=== PATIENT | female | born 1995 | race Caucasian/White ===

== ENCOUNTER 2021-12-07 15:47 | Emergency (ER) | payer BC, SELFPAY ==
[2021-12-07 15:53] VITALS: BP 107/65; PULSE 94; RESP 22; TEMP 36.5; O2SAT 98
--- NOTE | 2021-12-07 16:15 | DI.CT_ITS ---
Exam(s) CT LUMBAR SPINE WO EXAM: CT LUMBAR SPINE WO CLINICAL HISTORY: lower back pain, radiation to both legs. TECHNIQUE: Imaging Protocol: Axial computed tomography images with coronal and sagittal reformatted images were created and reviewed COMPARISON: No exams were available for comparison FINDINGS: Bones: There are no fractures, listhesis, nor pars defects. There are no lytic osseous lesions evide nt.Visualized SI joints and sacrum appear unremarkable. Sacral canal unremarkable. No disc herniations evident. All disc spaces exhibit normal height. No disc herniation or central c anal stenosis. No obvious foraminal stenosis. No significant facet arthropathy throughout the lumbo sacral spinal column. The visualized sacroiliac joints and sacrum appear unremarkable. PARASPINAL SOFT TISSUES: Visualized paraspinal tissues appear unremarkable. IMPRESSION: 1. No significant findings. No fracture or listhesis. No obvious disc herniation, and no evidence o f spinal canal stenosis. 2. No acute compromise of the lumbosacral spinal canal 3. RADIATION DOSE DELIVERED: 1,330.88mGy.cm Total DLP DATA REPOSITORY: All CT scans at this facility are submitted to the National Radiology Data Registry (NRDR) Dose Index Registry (DIR) with the [employer] ([employer]). RADIATION OPTIMIZATION: All CT scans at this facility use at least one of these dose optimization te chniques: automated exposure control; mA and/or kV adjustment per patient size (includes targeted exa ms where dose is matched to clinical indication); or iterative reconstruction.
--- NOTE | 2021-12-07 16:21 | ED.GENADUL_ITS ---
Discharge Plan Disposition Patient Disposition: HOME Condition: Stable Discharge Details Clinical Impression: Lumbar strain Primary Care Provider: Uriel Huerta ED Provider: Moraima Logan Home Meds and New Rx's Prescriptions: New methocarbamol 500 mg tablet 500 mg PO Q6H PRN (Reason: muscle spasm) Qty: 14 0RF prednisone 20 mg tablet See Rx Instructions .ROUTE .COMPLEX Qty: 18 0RF Rx Instructions: Take 3 tabs daily for 3 days, then 2 tabs daily for 3 days, then 1 tab daily for 3 days. Discharge Instructions Instructions: Low Back Strain (ED) Additional Instructions: Your imaging today is reassuring and shows no evidence of acute concerning or significant findings. Your symptoms may be due to a muscle strain. Alternate ice and heat to the affected area(s) several times daily for 20 minutes at a time. Alternate tylenol and motrin as needed and directed for pain. Take the oxycodone as needed and directed for pain not relieved with Tylenol, Motrin or muscle relaxers. Prescriptions for steroids and muscle relaxers have been sent electronically to your pharmacy. You have been placed on care management list to arrange for a follow-up appointment with the primary care doctor to establish care and for reevaluation of your back pain and for referral to physical therapy or for MRI of her lumbar spine if indicated. Return immediately to the emergency department if you develop any worsening or new concerning symptoms such as worsening pain, loss of bowel or bladder function or difficulty ambulating. Stand Alone Forms: Work Release Discharge Data Discharge Date/Time-TO BE ENTERED AT DEPARTURE: 12/07/21 18:35 Discharge Physician: Moraima Logan Medical Decision Making 26-year-old female with sudden onset of lower back pain while trying to put on her pants prior to arrival. No cauda equina symptoms. Patient appears uncomfortable. She required assistance out of her vehicle. She has tenderness to her midline and bilateral lumbar paraspinal region. Her back appears normal to inspection without cellulitis, trauma or step-offs. She has positive straight leg raise on the left but otherwise no focal deficits and is neurovascularly intact. History and presentation does not appear consistent with cauda equina syndrome. As she describes a crunching sensation in her back with radicular pain and MRI not available, discussed obtaining a CT of her x-ray and patient is agreeable. Will give a dose of IM Toradol, oral oxycodone, Valium and prednisone and reassess. Imaging reviewed and unremarkable. Patient reassessed and her pain is significantly improved and she feels comfortable going home. She was able to ambulate and had improvement in pain. Prescriptions for steroids and muscle relaxers sent electronically to her pharmacy. She was given oxycodone to go as needed for breakthrough pain. Patient was placed on care management list to arrange for a follow-up appointment with the primary care doctor to establish care and for reevaluation of her back pain and for referral to physical therapy or for MRI if indicated. Usual and customary return precautions given prior to discharge. Medical Records Medical records reviewed: Yes I reviewed the patient's medical records. Imaging Data Radiologic Study: Radiologist's impression: CT Lumbar Spine Without Contrast Exam date and time: 12/07/2021 5:10 PM Age: 26 years old Clinical indication: Injury or trauma; Fall; Blunt trauma (contusions or hematomas) TECHNIQUE: Imaging protocol: Computed tomography of the lumbar spine without contrast. COMPARISON: No relevant prior studies available. FINDINGS: Bones/joints: No acute fracture. Normal alignment. Discs/Spinal canal/Neural foramina: No significant disc protrusion. No severe spinal canal stenosis. No significant neural foraminal narrowing. Gallbladder and bile ducts: Cholecystectomy. Soft tissues: Unremarkable. IMPRESSION: No acute fracture or subluxation. HPI General Mode of arrival: wheelchair . Date/Time Provider Initiated Documentation: 12/07/21 15:47 . Limitations to Documentation: no limitations . Information obtained by: patient . HPI Narrative: Pt is a 26yo F who presents to the ED w/ a c/o lower back pain since trying to put on a pair of pants prior to arrival. Patient states she felt sudden onset of pain in her lower back in the midline radiating around to both sides when bending forward to put on a pair of pants. She states she felt a crack in the middle of her back radiating to both sides. She states she has some pain radiation to her buttocks and thighs around to the front of her knees. She denies any bowel or bladder incontinence, saddle anesthesia, leg weakness or numbness. She has not taken any medication for pain. Related Data Home Medications Medication Instructions Recorded Confirmed methocarbamol 500 mg tablet 500 mg PO Q6H PRN muscle spasm #14 12/07/21 tabs prednisone 20 mg tablet See Rx Instructions .Route 12/07/21 .COMPLEX #18 tabs Previous Rx's Medication Instructions Recorded methocarbamol 500 mg tablet 500 mg PO Q6H PRN muscle spasm #14 12/07/21 tabs prednisone 20 mg tablet See Rx Instructions .Route 12/07/21 .COMPLEX #18 tabs Allergies Allergy/AdvReac Type Severity Reaction Status Date / Time tramadol AdvReac Other (See Unverified 12/07/21 16:04 Comment) General Stated Complaint: Orthopedic SONDRA: 3 Review of Systems All systems reviewed & are unremarkable except as noted in HPI and below Constitutional Constitutional: Denies chills, Denies excessive sweating, Denies fatigue, Denies fever(s), Denies weakness and Denies weight loss Eyes Eyes: Reports system reviewed and no additional complaints, except as documented and Denies blurry vision ENT Ears, Nose, Mouth, and Throat: Denies vertigo, Denies dizziness, Denies otalgia, Denies nasal congestion, Denies sore throat and Denies throat swelling Cardiovascular Cardiovascular: Denies chest pain, Denies syncope, Denies rapid heart rate and Denies dyspnea Respiratory Respiratory: Denies chest congestion, Denies cough, Denies pain on inspiration and Denies dyspnea Gastrointestinal Gastrointestinal: Denies abdominal pain, Denies diarrhea and Denies vomiting Genitourinary Genitourinary: Denies hematuria, Denies dysuria and Denies flank pain Musculoskeletal Musculoskeletal: Reports back pain and Denies joint swelling Integumentary/Breasts Skin/Breast: Denies lesions and Denies rash Neurologic Neurologic: Denies behavioral changes, Denies confusion, Denies vertigo, Denies dizziness, Denies syncope, Denies localized weakness and Denies weakness Psychiatric Psychiatric: Denies behavioral changes, Denies confusion and Denies depression Endocrine Endocrine: Denies excessive sweating and Denies fatigue Hematologic/Lymphatic Hematologic/Lymphatic: Denies easy bruising and Denies lymphadenopathy Allergic/Immunologic Allergic/Immunologic: Denies throat swelling PFSH All Active Problems (Updated 12/07/21 @ 18:15 by Moraima Logan DO) Lumbar strain (Acute) Medical History (Updated 12/07/21 @ 18:15 by Moraima Logan DO) Asthma Endometriosis Surgical History (Updated 12/07/21 @ 16:39 by Moraima Logan DO) H/O laparoscopy Hx of cholecystectomy Social History Smoking/Tobacco Use Status: Never Smoking risk assessment performed?: Yes Alcohol Intake: current Alcohol Intake frequency: a few times a month Alcohol type: wine and hard liquor Substance use type: does not use Do you feel safe at home: Yes Do you feel safe in your relationship?: Yes Exam Const General: cooperative and uncomfortable Orientation: alert, awake and oriented x3 HENMT Head: normal to inspection Ears: hearing grossly normal bilaterally, external ears normal and TM's normal bilaterally General nose exam: external nose normal Face and sinus: normal facial exam Mouth: oral mucosae normal Teeth and gingiva: dentition normal Throat: posterior oropharynx normal Eyes General: appearance normal, both eyes and all related structures Eyelids: eyelids normal Pupils: PERRL EOM: EOM intact bilaterally Neck Neck: normal visual inspection Lymphatic: no lymphadenopathy noted Chest Chest: normal inspection of the chest Resp Effort & Inspection: normal respiratory effort and able to speak in complete sentences Auscultation: clear to auscultation bilaterally Cardio Rate: regular rate Rhythm: regular rhythm GI Inspection: normal to inspection Palpation: soft, not firm, no guarding, no hepatosplenomegaly, no masses and nontender Auscultation: normal bowel sounds Back/Spine/Pelvis Thoracic/Lumbar Spine: straight leg raise positive (Left side) Back/spine/pelvis image: 1. Tenderness to palpation midline lumbar and bilateral paraspinal lumbar r egion. No erythema, edema, ecchymoses, rash, lesions or step off. Skin General skin exam: no rashes or lesions noted Neuro General: patient alert, patient awake, patient oriented x3, moves all extrem ities, no meningeal signs and no focal motor deficits Cognition: normal cognition Speech: speech normal Gait: normal gait Motor: muscle tone normal throughout and strength 5/5 throughout Sensory Exam: no sensory deficits noted Extrem General: normal to inspection, full ROM and capillary refill normal Other: Bilateral DP/PT pulses intact. Psych Appearance: grossly normal Mental Status: mental status grossly normal Speech and Movement: speech and movement normal Affect: normal affect Thought Process: normal Course Vital Signs Vital signs: Vital Signs Temperature 97.7 F 12/07/21 15:53 Pulse 94 H 12/07/21 15:53 Respiratory Rate 22 12/07/21 15:53 Blood Pressure 107/65 12/07/21 15:53 Pulse Oximetry 98 12/07/21 15:53 Temperature 97.7 F 12/07/21 15:53 Temperature Source Temporal Artery Scan 12/07/21 15:53 Pulse 94 H 12/07/21 15:53 Respiratory Rate 12/07/21 15:53 Blood Pressure 107/65 12/07/21 15:53 Blood Pressure Position Sitting 12/07/21 15:53 Pulse Oximetry 98 12/07/21 15:53 Oxygen Delivery Method Room Air 12/07/21 15:53 Oxygen Flow Rate 0 12/07/21 15:53 Pain Level 6 12/07/21 15:53 Comment 12/07/21 15:53
[2021-12-07] MEDS: diazePAM 5 MG TAB PO (16:39)
[2021-12-07] MEDS: oxyCODONE 5 MG TAB PO (16:39)
[2021-12-07] MEDS: predniSONE 20 MG TAB 60 MG PO (16:39)
[2021-12-07] MEDS: Ketorolac 60 MG/2 ML VIAL IM (16:40)
[2021-12-07 17:33] VITALS: BP 103/60; PULSE 93; RESP 14; TEMP 36.7; O2SAT 100
--- NOTE | 2021-12-07 17:57 | DI.VRAD_ITS ---
PROCEDURE INFORMATION: Exam: CT Lumbar Spine Without Contrast Exam date and time: 12/07/2021 5:10 PM Age: 26 years old Clinical indication: Injury or trauma; Fall; Blunt trauma (contusions or hematomas) TECHNIQUE: Imaging protocol: Computed tomography of the lumbar spine without contrast. COMPARISON: No relevant prior studies available. FINDINGS: Bones/joints: No acute fracture. Normal alignment. Discs/Spinal canal/Neural foramina: No significant disc protrusion. No severe spinal canal stenosis. No significant neural foraminal narrowing. Gallbladder and bile ducts: Cholecystectomy. Soft tissues: Unremarkable. IMPRESSION: No acute fracture or subluxation. Dictated and Authenticated by: Marlo Field MD. Ordering:VICTOR MANUEL Valera MD
--- NOTE | 2021-12-07 18:23 | NUR.NOTE ---
Per Dr. Logan, patient needs a PCP as they are new to the area and also needs an appt for re-evaluation of back pain within two weeks. Put the referral in the college and career counselor's box for assistance with this. Nursing Note:
[2021-12-07] MEDS: Methocarbamol 500 MG TAB 1000 MG PO (18:30)
[2021-12-07 18:38] VITALS: BP 103/60; PULSE 93; RESP 14; TEMP 36.7; O2SAT 100
== END 2021-12-07 18:35 | disposition home or self-care (01) ==
PROVIDERS: Emergency Provider Physician Assistant; PCP Internal Medicine
DX: S39.012A Strain of muscle, fascia and tendon of lower back, initial encounter (principal); Z32.02 Encounter for pregnancy test, result negative; X58.XXXA Exposure to other specified factors, initial encounter
CPT/HCPCS: 81025; 96372; 99284; 72131; J1885; J7512

== ENCOUNTER 2022-01-12 16:03 | Emergency (ER) | payer BC, SELFPAY ==
[2022-01-12 16:07] VITALS: PULSE 96; RESP 16; TEMP 36.2
--- NOTE | 2022-01-12 16:30 | DI.RAD_ITS ---
Exam(s) XR SHOULDER RT COMPLETE 2+V EXAM: XR SHOULDER RT COMPLETE 2+V CLINICAL HISTORY: R/O fx, dislocation, shoulder, Injury TECHNIQUE: COMPARISON: No exams were available for comparison FINDINGS: Five views were obtained. There is no evidence of acute fracture or dislocation. IMPRESSION: RADIATION DOSE DELIVERED: Total DLP
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
--- NOTE | 2022-01-12 17:37 | PDOC.ERCMPRO ---
- If Service Date Differs Date of service: 01/12/22 Time of Service: 17:37 Care Management Progress Note SBIRT screen: negative. Pt reports no substance use or mental health symptoms.
--- NOTE | 2022-01-12 18:34 | DI.VRAD_ITS ---
PROCEDURE INFORMATION: Exam: XR Right Shoulder Exam date and time: 01/12/2022 5:55 PM Age: 26 years old Clinical indication: Other: R/O FX, dislocation, shoulder, injury TECHNIQUE: Imaging protocol: Radiologic exam of the Right shoulder. Views: 2 or more views. COMPARISON: No relevant prior studies available. FINDINGS: Bones/joints: Osseous mineralization is normal. There are no inflammatory osseous erosive changes. The joint spaces are maintained without degenerative changes. The humeral head demonstrates normal contour and density. The subacromial space is maintained without focal calcification. There are no acute displaced fractures or subluxations. No focal osseous lesions are identified. Soft tissues: Normal. IMPRESSION: No acute fractures or subluxations identified. Dictated and Authenticated by: Edgard Kitchen MD. Ordering:ROWDY Whitehead MD
== END 2022-01-12 19:05 | disposition home or self-care (01) ==
PROVIDERS: Emergency Provider Registered Nurse Emergency; PCP Internal Medicine
DX: S43.401A Unspecified sprain of right shoulder joint, initial encounter (principal); W18.30XA Fall on same level, unspecified, initial encounter; Y92.149 Unspecified place in prison as the place of occurrence of the external cause
CPT/HCPCS: 99283; 73030; 99282

== ENCOUNTER 2022-01-14 15:20 | Emergency (ER) | payer BC, SELFPAY ==
[2022-01-14 15:24] VITALS: BP 137/59; PULSE 95; RESP 16; TEMP 36.4; O2SAT 98
--- NOTE | 2022-01-14 16:07 | W.ED.GENAD ---
Discharge Plan Disposition Patient Disposition: HOME Condition: Improving Discharge Details Clinical Impression: Shoulder pain Primary Care Provider: Uriel Huerta ED Provider: Melchor Houston Home Meds and New Rx's Prescriptions: Continued albuterol 90 mcg/actuation Aerosol 2 mcg INHALATION PRN PRN Nexplanon 68 mg Implant 1 implant SUBDERMAL ONCE Rx Instructions: as a single dose Discharge Instructions Instructions: Shoulder Pain (ED) Additional Instructions: Wear sling as needed, advance activity as tolerated. Be sure to do passive range of motion at least 4 times daily to avoid a frozen shoulder. You are already taking trqv-[id number] Tylenol but I recommend adding on Naprosyn as directed as this is an anti-inflammatory and will likely be beneficial. Cool and/or warm compresses every 2 hours for 20 minutes. Please watch for new or worsening symptoms and return to the ER for any concerns. Lastly, I have placed you on the care management list to expedite outpatient primary care and orthopedic follow-up. Medical Decision Making 26-year-old female [id number] presents after shoulder injury on Tuesday, seen on Tuesday negative x-ray at that time, but now worsening pain, stiffness, tingling. Has been taking Tylenol. I will place her on the care management list of expedite outpatient primary care and orthopedic follow-up as she was unable to do this on her own. I recommend that she add on an anti-inflammatory as opposed to simply taking Tylenol. I do not believe that repeat x-ray at this time is indicated and she may need an outpatient MRI symptoms were to persist. I will provide a sling and we did discuss the importance of passive range of motion. Standard discharge and return precautions were provided. Patient understands, is agreeable to this plan, and has no additional questions or concerns upon discharge. This documentation was generated using [employer] system, please disregard any oddities of phrase or misspellings. Medical Records Medical records reviewed: Yes I reviewed the patient's medical records. HPI General Mode of arrival: ambulatory. Date/Time Provider Initiated Documentation: 01/14/22 15:31. Limitations to Documentation: no limitations. Information obtained by: patient. HPI Narrative: This is a 26-year-old female, [id number], reports a right shoulder injury on Tuesday while doing training for her job, seen in the ER on Tuesday and had a negative x-ray at that time, presenting now for increased pain, stiffness, now with paresthesias. She denies additional injury. She has been taking gfck-jxg-mbmspoa Tylenol for her symptoms. She denies any true numbness or weakness. She denies any other injuries. She attempted to contact the orthopedic team but states their office said she needs a referral from a PCP. She states she does not have a PCP and she contacted PCP but they were not taking new patients. Related Data Home Medications Medication Instructions Recorded Confirmed albuterol 90 mcg/actuation aerosol 2 mcg inhalation PRN PRN 01/12/22 01/14/22 inhaler etonogestrel 68 mg subdermal 1 implant subdermal ONCE 01/12/22 01/14/22 implant (Nexplanon) Allergies Allergy/AdvReac Type Severity Reaction Status Date / Time tramadol AdvReac Other (See Unverified 01/14/22 15:28 Comment) General Stated Complaint: Orthopedic SONDRA: 4 Review of Systems Constitutional Constitutional: Denies fever(s), Denies headache(s) and Denies weakness ENT Ears, Nose, Mouth, and Throat: Denies headache(s) and Reports neck pain (Right-sided) Musculoskeletal Musculoskeletal: Reports arthralgias, Reports neck pain (Right-sided), Denies numbness and Reports tingling Integumentary/Breasts Skin/Breast: Denies erythema Neurologic Neurologic: Denies headache(s), Denies numbness, Reports tingling and Denies weakness PFSH All Active Problems Sprain of right shoulder (Acute) Decreased range of motion (ROM) of shoulder (Acute) Shoulder pain (Acute) Medical History Asthma Endometriosis Surgical History H/O laparoscopy Hx of cholecystectomy Social History Smoking/Tobacco Use Status: Never Smoking risk assessment performed?: Yes Alcohol Intake: current Alcohol Intake frequency: a few times a month Alcohol type: wine and hard liquor Substance use type: does not use Do you feel safe at home: Yes Do you feel safe in your relationship?: Yes Exam Const General: cooperative, healthy appearing, comfortable and no acute distress Orientation: alert and awake [facility] Head: normal to inspection, normocephalic and atraumatic Eyes General: appearance normal, both eyes and all related structures Conjunctivae: conjunctivae normal Neck Neck: normal visual inspection, full ROM, trachea midline, supple and nontender Resp Effort & Inspection: normal respiratory effort and able to speak in complete sentences Cardio Rate: regular rate Rhythm: regular rhythm Back/Spine/Pelvis Back: No back tenderness Skin General skin exam: no rashes or lesions noted Neuro General: patient alert, patient awake, moves all extremities and no focal motor deficits Cognition: normal cognition Speech: speech normal Gait: normal gait Sensory Exam: no sensory deficits noted Extrem General: capillary refill normal Other: Right shoulder held in adduction and, limited range of motion in all directions secondary to discomfort. She has diffuse right trapezius, superior and anterior deltoid discomfort. There is no erythema, ecchymosis, spasm. Skin is intact. 5 of 5 strength. Normal capillary refill and radial pulse. Psych Appearance: grossly normal Mental Status: mental status grossly normal Course Vital Signs Vital signs: Vital Signs Temperature 36.4 C L 01/14/22 15:24 Pulse 95 H 01/14/22 15:24 Respiratory Rate 16 01/14/22 15:24 Blood Pressure 137/59 L 01/14/22 15:24 Pulse Oximetry 98 01/14/22 15:24 Temperature 36.4 C L 01/14/22 15:24 Temperature Source Temporal Artery Scan 01/14/22 15:24 Pulse 95 H 01/14/22 15:24 Respiratory Rate 16 01/14/22 15:24 Respiratory Effort 01/14/22 15:27 Blood Pressure 137/59 L 01/14/22 15:24 Blood Pressure Position Sitting 01/14/22 15:24 Pulse Oximetry 98 01/14/22 15:24 Oxygen Delivery Method Room Air 01/14/22 15:24 Oxygen Flow Rate 0 01/14/22 15:24 Pain Level 5 01/14/22 15:24
--- NOTE | 2022-01-14 16:27 | NUR.NOTE ---
Nursing Note: PT info faxed to or for follow up shortly for right shoulder pain.
[2022-01-14 16:37] VITALS: BP 122/89; PULSE 95; RESP 16; TEMP 37.2; O2SAT 97
== END 2022-01-14 17:02 | disposition home or self-care (01) ==
PROVIDERS: Emergency Provider Physician Assistant; PCP Internal Medicine
DX: G89.11 Acute pain due to trauma (principal); M25.511 Pain in right shoulder; R20.2 Paresthesia of skin; X58.XXXA Exposure to other specified factors, initial encounter; Y93.89 Activity, other specified
CPT/HCPCS: 99282

== ENCOUNTER 2022-03-03 19:51 | Emergency (ER) | payer BC, SELFPAY ==
[2022-03-03 19:58] VITALS: BP 120/75; PULSE 110; RESP 18; TEMP 35; O2SAT 92
--- NOTE | 2022-03-03 20:13 | ED.GENADUL_ITS ---
Discharge Plan Disposition Patient Disposition: HOME Condition: Stable Discharge Details Clinical Impression: Acute shoulder pain Primary Care Provider: None,None ED Provider: Vero Rees Home Meds and New Rx's Prescriptions: New prednisone 20 mg tablet 40 mg PO ONCE Qty: 8 0RF cyclobenzaprine 10 mg tablet 10 mg PO TID Qty: 10 0RF Continued albuterol 90 mcg/actuation Aerosol 2 mcg INHALATION PRN PRN Nexplanon 68 mg Implant 1 implant SUBDERMAL ONCE Rx Instructions: as a single dose naproxen sodium 220 mg Tablet 220 mg PO Q12H PRN Discharge Instructions Instructions: Shoulder Pain (ED) Additional Instructions: Continue with light range of motion Follow-up with your PCP and PT Take prednisone as prescribed Take the Flexeril as needed Return earlier should you have new or worsening complaints Stand Alone Forms: Work Release Referrals: None,None [Primary Care Provider] - Discharge Data Discharge Date/Time-TO BE ENTERED AT DEPARTURE: 03/03/22 20:25 Medical Decision Making Patient appears well, think she has an acute exacerbation of her chronic pain Given muscle relaxant and Medrol Return precautions discussed and patient expressed understanding Medical Records Medical records reviewed: Yes I reviewed the patient's medical records. HPI General Date/Time Provider Initiated Documentation: 03/03/22 20:12 . HPI Narrative: This 26-year-old female with history of shoulder pain which is chronic in nature presents with acute exacerbation of her discomfort. Denies any known trauma but did have PT this morning. She had her initial injury the first week in January. She is undergoing PT regularly for this pain. She has follow-up scheduled with primary care physician and orthopedics. She states the pain is in the same location she had previously. She states moving it predominantly in front of her into the thigh it increases her pain which is sharp. She denies any neck pain, chest pain, shortness of breath, dizziness, chance of , fever, chills. Related Data Home Medications Medication Instructions Recorded Confirmed albuterol 90 mcg/actuation aerosol 2 mcg inhalation PRN PRN 01/12/22 03/03/22 inhaler etonogestrel 68 mg subdermal 1 implant subdermal ONCE 01/12/22 03/03/22 implant (Nexplanon) cyclobenzaprine 10 mg tablet 10 mg PO TID #10 tabs 03/03/22 naproxen sodium 220 mg tablet 220 mg PO Q12H PRN 03/03/22 03/03/22 prednisone 20 mg tablet 40 mg PO ONCE #8 tabs 03/03/22 Previous Rx's Medication Instructions Recorded cyclobenzaprine 10 mg tablet 10 mg PO TID #10 tabs 03/03/22 prednisone 20 mg tablet 40 mg PO ONCE #8 tabs 03/03/22 Allergies Allergy/AdvReac Type Severity Reaction Status Date / Time tramadol AdvReac Other (See Unverified 03/03/22 20:02 Comment) General Stated Complaint: Orthopedic SONDRA: 4 Review of Systems All systems reviewed & are unremarkable except as noted in HPI and below PFSH All Active Problems (Updated 03/03/22 @ 20:16 by DARNELL Maddox) Acute shoulder pain (Acute) Superior labrum kopbfyyc-bh-[id number] (SLAP) tear of right shoulder (Acute) Adhesive capsulitis of right shoulder (Acute) Medical History Asthma Endometriosis Surgical History H/O laparoscopy Hx of cholecystectomy Social History Smoking/Tobacco Use Status: Never Smoking risk assessment performed?: Yes Alcohol Intake: current Alcohol Intake frequency: a few times a month Alcohol type: wine and hard liquor Substance use type: does not use Do you feel safe at home: Yes Do you feel safe in your relationship?: Yes Exam Const General: cooperative and comfortable Orientation: alert and oriented x3 Neck Other: no midline tenderness Resp Effort & Inspection: normal respiratory effort Auscultation: clear to auscultation bilaterally Extrem Other: right shoulder tenderness, predominatly with flexion and externalrotation strength and sensation intact distally neurovascularly intact Course Vital Signs Vital signs: Vital Signs Temperature 35.0 C L 03/03/22 19:58 Pulse 110 H 03/03/22 19:58 Respiratory Rate 18 03/03/22 19:58 Blood Pressure 120/75 03/03/22 19:58 Pulse Oximetry 92 03/03/22 19:58 Temperature 35.0 C L 03/03/22 19:58 Temperature Source Skin 03/03/22 19:58 Pulse 110 H 03/03/22 19:58 Respiratory Rate 18 03/03/22 19:58 Respiratory Effort Non-Labored 03/03/22 20:04 Blood Pressure 120/75 03/03/22 19:58 Pulse Oximetry 92 03/03/22 19:58 Pain Level 8 03/03/22 20:04
[2022-03-03] MEDS: predniSONE 20 MG TAB 40 MG PO (20:24)
== END 2022-03-03 20:25 | disposition home or self-care (01) ==
PROVIDERS: Emergency Provider Physician Assistant
DX: M25.511 Pain in right shoulder; J45.909 Unspecified asthma, uncomplicated
CPT/HCPCS: 99283; 99284; J7512

== ENCOUNTER 2022-07-19 17:36 | Outpatient (REF) | payer BC, SELFPAY ==
[2022-07-21 13:48] LABS: Chlamydia Result Negative (Negative); GC Result Negative (Negative)
== END 2022-07-19 17:37 | disposition home or self-care (01) ==
LOC: LBN 17:36
PROVIDERS: PCP Nurse Practitioner Family; Visit Provider Obstetrics & Gynecology
DX: B37.31 Acute candidiasis of vulva and vagina (principal); Z11.3 Encounter for screening for infections with a predominantly sexual mode of transmission
CPT/HCPCS: 87491; 87591; 87480; 87510; 87660

== ENCOUNTER 2022-07-26 02:37 | Outpatient (CLI) | payer BC, SELFPAY ==
[2022-07-26 07:26] LABS: ESR 17 mm/hr (0-20)
[2022-07-26 07:41] LABS: Hemoglobin A1C 5.2 % (<5.7)
[2022-07-26 08:31] LABS: ALT 31 U/L (14-59); AST 23 U/L (15-37); Albumin 3.9 g/dL (3.4-5.0); Alkaline Phosphatase 139 U/L (46-116); Anion Gap 10.8 mmol/L (3-11); BUN 14 mg/dL (7-18); Bilirubin, Total 0.6 mg/dL (0.2-1.0); CO2 24.2 mmol/L (21.0-32.0); CREATININE 0.8 mg/dL (0.55-1.02); Calcium 9.8 mg/dL (8.5-10.1); Calculated LDL 79 mg/dL (<100); Chloride 107 mmol/L (98-107); Cholesterol 136 mg/dL (<200); Estimated GFR 104.15 (mL/min/1.73m2); Glucose 88 mg/dL (74-106); HDL Cholesterol 39 mg/dL (40-60); Potassium 3.9 mmol/L (3.5-5.1); Sodium 142 mmol/L (136-145); TSH (W/Ref FT4) 1.42 uIU/mL (0.36-3.74); Total Protein 7.7 g/dL (6.4-8.2); Triglyceride 90 mg/dL (<150)
[2022-07-26 08:39] LABS: C-Reactive Protein 0.84 mg/dL (0.0-0.3)
[2022-07-27 10:30] LABS: Lyme Ab w Rflx to Lyme Confirm Negative (Negative)
[2022-07-27 12:36] LABS: dsDNA Ab, IgG <12.3 IU/mL (<30.0)
[2022-07-28 12:34] LABS: ANA Interpretation Negative (Negative)
[2022-07-29 14:25] LABS: Anaplasma phagocytophilum Negative (Negative); B. miyamotoi PCR Negative (Negative); Babesia divergens/MO-1 Negative (Negative); Babesia duncani Negative (Negative); Babesia microti Negative (Negative); Ehrlichia chaffeensis Negative (Negative); Ehrlichia ewingii/canis Negative (Negative); Ehrlichia muris eauclairensis Negative (Negative)
== END 2022-07-26 02:38 | disposition home or self-care (01) ==
LOC: LBO 02:37
PROVIDERS: PCP Nurse Practitioner Family; Visit Provider Nurse Practitioner Family
DX: Z00.00 Encounter for general adult medical examination without abnormal findings (principal); M25.50 Pain in unspecified joint; M25.561 Pain in right knee; M25.562 Pain in left knee; M25.551 Pain in right hip; M25.552 Pain in left hip; G89.29 Other chronic pain; Z13.220 Encounter for screening for lipoid disorders; Z13.1 Encounter for screening for diabetes mellitus; Z13.29 Encounter for screening for other suspected endocrine disorder; Z11.8 Encounter for screening for other infectious and parasitic diseases; E66.8 Other obesity
CPT/HCPCS: 36415; 80053; 80061; 85652; 87798; 83036; 84443; 86038; 86140; 86225; 86618

== ENCOUNTER 2022-10-27 10:56 | Outpatient (REF) | payer BC, SELFPAY | END 2022-10-27 10:57 | disposition home or self-care (01) | LOC: LBN 10:56 | PROVIDERS: PCP Nurse Practitioner Family; Visit Provider Nurse Practitioner Women's Health | DX: N89.8 Other specified noninflammatory disorders of vagina (principal) | CPT/HCPCS: 87480; 87510; 87660 ==

== ENCOUNTER 2022-11-30 04:19 | Emergency (ER) | payer BC, SELFPAY ==
[2022-11-30 04:24] VITALS: BP 124/81; PULSE 77; RESP 18; TEMP 36.8; O2SAT 97
--- NOTE | 2022-11-30 04:30 | DI.RAD_ITS ---
Exam(s) XR PORTABLE CHEST AP EXAM: XR PORTABLE CHEST AP CLINICAL HISTORY: upright TECHNIQUE: 2D digital imaging was performed. COMPARISON: No exams were available for comparison FINDINGS: LUNGS: Clear. No pleural abnormality seen. HEART: Normal size. AORTA: Normal diameter. BONES: Unremarkable for age. Soft tissues: Unremarkable. IMPRESSION: No acute findings. DATA REPOSITORY: RADIATION DOSE DELIVERED:
--- NOTE | 2022-11-30 04:30 | RT.EKG_ITS ---
APPROVED REPORT Exam: Resting ECG Reason for Exam: dizzy Patient Location: E HR:65 bpm ECG Measurements Heart Rate 65 AXIS MN 143 P 31 QRSd 76 QRS 12 QT 410 T 13 QTc 427 Conclusion Sinus rhythm...normal P axis, V-rate 60- 99 Low voltage, precordial leads...precordial leads <1.0mV
--- NOTE | 2022-11-30 04:44 | W.ED.GENAD ---
Discharge Plan Disposition Patient Disposition: Home Discharge Details Clinical Impression: Nausea & vomiting, Citlali-Roberto tear, GERD (gastroesophageal reflux disease) Primary Care Provider: Jing Bishop ED Provider: Janusz Centeno Home Meds and New Rx's Prescriptions: New omeprazole 40 mg capsule,delayed release(DR/EC) 40 mg PO BID Qty: 60 2RF ondansetron 4 mg tablet,disintegrating 4 mg PO Q8H PRN PRN (Reason: nausea and vomiting) Qty: 20 0RF Continued medroxyprogesterone [Depo-Provera] 150 mg/mL suspension 150 mg IM Q12W Qty: 1 3RF albuterol sulfate 90 mcg/actuation HFA aerosol inhaler 2 inh inhalation Q6H PRN (Reason: shortness of breath or wheezing) Qty: 18 4RF Held naproxen sodium 220 mg Tablet 220 mg PO Q12H PRN Hold Instructions: Resume on 12/30/22. hold until nausea symptoms have fully resolved Discontinued fluconazole [Diflucan] 150 mg tablet 150 mg PO ONCE Qty: 1 1RF Rx Instructions: as a single dose. If symptoms still present in 5 days, refill and repeat dose. Discharge Instructions Instructions: GERD (Gastroesophageal Reflux Disease) (ED), Citlali-Roberto Syndrome (ED) Additional Instructions: You were seen in the emergency department for nausea and vomiting. We performed labs, an EKG, and a chest x-ray and these were all unremarkable. Your symptoms are likely related to GERD. You should start taking omeprazole 40 mg twice a day until you can follow-up with your primary care doctor. Follow-up with your primary care doctor as soon as possible to see if you need a referral to gastroenterology or a surgeon for a possible endoscopy. Return straight back to the emergency department for abdominal pain, intractable nausea or vomiting, recurrent bloody vomiting or any other symptoms that are worrisome to you. Stand Alone Forms: Work Release Medical Decision Making This is a 27-year-old female who presents with nausea and vomiting and dizziness. Suspect this is most related to severe GERD or gastritis. Reporting significant acid symptoms to suggest this and we will give some famotidine to treat this. We will also give some nausea medication and some IV fluids. Suspect the lightheadedness and dizziness is secondary to the patient's repeated vomiting and likely some mild hypovolemia. Suspect this will improve with some IV fluids. Doubt other cause of the dizziness but will check an EKG to look for dysrhythmia. Will get chest x-ray to evaluate for pneumonia or pneumothorax. She has some epigastric abdominal pain. Suspect this is related to the GERD or gastritis. No tenderness on exam so no role for CT of the abdomen and pelvis at this time. She is already status postcholecystectomy. We will get biliary labs to look for signs of hepatitis, pancreatitis, or other biliary disease. We will check a CBC to look for significant bleeding. I suspect that the patient's 1 episode of bloody vomit was secondary to a Citlali-Roberto tear from the repeated vomiting today and we will see if the patient's symptoms improve with the famotidine and nausea medications and follow-up her CBC additionally. No other signs to suggest a large volume upper gastrointestinal bleed. We will treat as above and await initial testing and reevaluate. 0617 Labs, EKG, and chest x-ray are unremarkable. Markedly improved after IV treatment of nausea and suspected GERD here. Tolerating p.o. Feels better and would like to leave. I think that this is reasonable. Will send prescription for omeprazole and a short course of Zofran to help with her nausea as well. Will discharge with return precautions. Medical Records Medical records reviewed: Yes I reviewed the patient's medical records. Imaging Data Radiologic Study: Attestation: I personally reviewed and interpreted this imaging study as follows: Imaging: X-Ray (chest) My impression: unremarkable Lab Data Lab results reviewed: Yes I reviewed the patient's lab results. ECG Data Attestation: I personally reviewed and interpreted this ECG (s) as follows: Prior ECG tracings: available for review Interpretation: Normal sinus rhythm with a rate of 65. Normal IL and QT intervals. No ST or T wave changes. Otherwise unremarkable EKG. HPI General Date/Time Provider Initiated Documentation: 11/30/22 04:32. Limitations to Documentation: no limitations. Information obtained by: patient. HPI Narrative: 27-year-old female with history of asthma and endometriosis is now presenting with nausea and vomiting. Says she actually started this evening at work with some lightheadedness and dizziness and feeling a little bit off. She said she started with severe nausea and vomiting over the last few hours. Vomited multiple times. Had 1 episode of bloody vomit. Subsequently had 1 episode of vomiting that did not have any blood. Has some epigastric abdominal pain but no other abdominal pain. No constipation or diarrhea. No black or bloody stools. She says she has been dealing with recurrent nausea and vomiting over the last year. Did not have a clear reason for this and says she has been planning to follow-up with her primary care doctor. She has had her gallbladder out and she has had a diagnostic laparoscopy for the endometriosis but no other surgeries. She denies any chance she would be. Them. No vaginal bleeding or discharge. Denies any other complaints. Related Data Home Medications Medication Instructions Recorded Confirmed naproxen sodium 220 mg tablet 220 mg PO Q12H PRN 03/03/22 10/27/22 albuterol sulfate 90 mcg/actuation 2 inh inhalation Q6H PRN shortness 06/24/22 11/30/22 aerosol inhaler of breath or wheezing #18 grams medroxyprogesterone 150 mg/mL 150 mg IM Q12W #1 mL 07/19/22 11/30/22 intramuscular suspension (Depo-Provera) omeprazole 40 mg capsule,delayed 40 mg PO BID #60 caps 11/30/22 release ondansetron 4 mg disintegrating 4 mg PO Q8H PRN PRN nausea and 11/30/22 tablet vomiting #20 tabs Previous Rx's Medication Instructions Recorded albuterol sulfate 90 mcg/actuation 2 inh inhalation Q6H PRN shortness 06/24/22 aerosol inhaler of breath or wheezing #18 grams medroxyprogesterone 150 mg/mL 150 mg IM Q12W #1 mL 07/19/22 intramuscular suspension (Depo-Provera) omeprazole 40 mg capsule,delayed 40 mg PO BID #60 caps 11/30/22 release ondansetron 4 mg disintegrating 4 mg PO Q8H PRN PRN nausea and 11/30/22 tablet vomiting #20 tabs Allergies Allergy/AdvReac Type Severity Reaction Status Date / Time tramadol AdvReac Hallucinati Unverified 10/27/22 09:56 ons General Stated Complaint: Nausea/Vomit/Diar SONDRA: 3 Review of Systems Constitutional Constitutional: Denies chills, Denies fever(s) and Denies headache(s) Comments: lightheaded and dizzy Eyes Eyes: Denies change in vision ENT Ears, Nose, Mouth, and Throat: Denies headache(s) and Denies odynophagia Cardiovascular Cardiovascular: Denies chest pain and Denies dyspnea Respiratory Respiratory: Denies dyspnea Gastrointestinal Gastrointestinal: Denies abdominal pain, Denies diarrhea, Reports nausea, Denies odynophagia, Reports vomiting, Reports hematemesis and Reports other (epigastric abdominal pain) Genitourinary Genitourinary: Denies dysuria Musculoskeletal Musculoskeletal: Denies myalgias Integumentary/Breasts Skin/Breast: Denies changing lesions Neurologic Neurologic: Denies behavioral changes and Denies headache(s) Psychiatric Psychiatric: Denies behavioral changes Endocrine Endocrine: Denies heat intolerance Hematologic/Lymphatic Hematologic/Lymphatic: Denies lymphadenopathy PFSH All Active Problems (Updated 11/30/22 @ 05:25 by Janusz Centeno MD) Nausea & vomiting (Acute) Citlali-Roberto tear (Acute) GERD (gastroesophageal reflux disease) (Chronic) Nexplanon removal (Acute) Yeast vaginitis (Acute) Abnormal uterine bleeding (Acute) Contraceptive management (Acute) Well woman exam with routine gynecological exam (Acute) Endometriosis (Chronic) Sprain of right shoulder (Chronic) Chronic joint pain (Chronic) Asthma (Chronic) Obesity (Chronic) Medical History Adhesive capsulitis of right shoulder Depression Migraine Surgical History H/O laparoscopy Hx of cholecystectomy Family History Mother Substance use disorder Father No problems noted. Brother No problems noted. Brother No problems noted. Maternal Grandfather Heart disease Maternal Grandmother Heart disease Paternal Grandfather No problems noted. Paternal Grandmother No problems noted. Social History Smoking/Tobacco Use Status: Never Second Hand Exposure: Yes Smoking risk assessment performed?: Yes Alcohol Intake: current Alcohol Intake frequency: a few times a month Alcohol type: wine and hard liquor Substance use type: does not use Caregiver/Support person: No Household members: none Housing: house Communication Needs: None Do you need help understanding health information?: Never Pets and animals: Yes Pets and animals: dog(s) Sexually active: No Do you think of yourself as: straight/heterosexual Current gender identity: female What is your relationship status?: never How often do you talk on the phone with friends or family?: twice per week How often do you get together with friends or relatives?: once per week How often do you attend buddhist or restorationism services?: decline to answer Do you belong to any clubs or organized social groups?: no Panel score (0-1 are the most socially isolated patients): 1 What type of physical activity do you participate in: yoga Duration: 15-30 minutes/day Frequency: 3-4 times per week Mamie/Oriental Orthodox: No preference Seatbelt use: sometimes Helmet use: No Drive intox or ride w/intox petroleum transport driver: No Do you feel safe at home: Yes Do you feel safe in your relationship?: Yes Female Reproductive History Menstrual Age of Menarche: 12 Duration of menses: other control method: progesterone injection History History 0 Para Hx # Term Pregnancies Multiple births Hx # Pregnancies Ectopic pregnancies AB induced Hx Number of Living Children AB spontaneous Exam Const General: cooperative Nutritional Appearance: average body habitus Orientation: alert, awake and oriented x3 HENMT Head: normal to inspection Ears: external ears normal Mouth: moist mucous membranes Eyes Pupils: PERRL EOM: EOM intact bilaterally and No nystagmus Neck Neck: full ROM and no tracheal deviation Chest Chest: normal inspection of the chest Resp Auscultation: clear to auscultation bilaterally Cardio Rate: regular rate Rhythm: regular rhythm GI Inspection: normal to inspection Palpation: soft, no guarding, not rigid and nontender Other: Reporting some epigastric and upper abdominal pain but not tender on exam and no guarding, rigidity or rebound. Back/Spine/Pelvis Back: No no CVA tenderness Thoracic/Lumbar Spine: thoracic and lumbar spine normal to inspection Skin General skin exam: no rashes or lesions noted Neuro General: patient alert, patient awake and patient oriented x3 Cranial Nerves: CN's II-XI intact bilaterally, PERRL and no nystagmus Cognition: normal cognition Motor: muscle tone normal throughout and strength 5/5 throughout Sensory Exam: no sensory deficits noted Extrem General: normal to inspection Course Vital Signs Vital signs: Vital Signs Temperature 36.8 C 11/30/22 04:24 Pulse 77 11/30/22 04:24 Respiratory Rate 18 11/30/22 04:24 Blood Pressure 124/81 11/30/22 04:24 Pulse Oximetry 97 11/30/22 04:24 Temperature 36.8 C 11/30/22 04:24 Temperature Source Oral 11/30/22 04:24 Pulse 77 11/30/22 04:24 Respiratory Rate 18 11/30/22 04:24 Blood Pressure 124/81 11/30/22 04:24 Pulse Oximetry 97 11/30/22 04:24 Oxygen Delivery Method Room Air 11/30/22 04:24 Oxygen Flow Rate 0 11/30/22 04:24
[2022-11-30] MEDS: Ondansetron 4 MG/2 ML VIAL IVP ×2 (04:50→05:24)
[2022-11-30] MEDS: Famotidine 20 MG/2 ML VIAL IVP (04:50)
[2022-11-30] MEDS: Normal Saline 1,000 ML 1000 ML IV (04:50)
[2022-11-30 05:08] LABS: ALT 32 U/L (14-59); AST 17 U/L (15-37); Alkaline Phosphatase 175 U/L (46-116); Anion Gap 11.2 mmol/L (3-11); BUN 15 mg/dL (7-18); Bilirubin, Total 0.3 mg/dL (0.2-1.0); CO2 25.8 mmol/L (21.0-32.0); Calcium 9.4 mg/dL (8.5-10.1); Chloride 105 mmol/L (98-107); Estimated GFR 79.19 (mL/min/1.73m2); Glucose 101 mg/dL (74-106); Lipase 29 U/L (16-77); Magnesium 1.8 mg/dL (1.8-2.4); Potassium 3.5 mmol/L (3.5-5.1); Sodium 142 mmol/L (136-145); Total Protein 7.9 g/dL (6.4-8.2)
[2022-11-30 05:10] LABS: Abs Immature Grans 0.06 10^3/uL (0.0-0.06); Absolute Basophil Count 0.07 10^3/uL (0.0-0.2); Absolute Eosinophil Count 0.21 10^3/uL (0.0-0.7); Absolute Lymphocyte Count 3.17 10^3/uL (1.2-3.4); Absolute Monocyte Count 0.79 10^3/uL (0.1-0.8); Basophils % 0.6; Eosinophils % 1.8; HCT 41.2 % (36.0-46.0); Immature Grans % 0.5; Lymphocytes % 27.2; MCH 28.5 pg (27.0-33.0); MCV 84 fL (80-95); MPV 10.2 fL (8.0-11.0); Monocytes % 6.8; Neutrophils % 63.1; Platelet Count 332 10^3/uL (130-400); RBC 4.91 10^6/uL (3.93-5.22); RDW 12.2 % (11.7-14.6); RDW-SD 37.2 fL; WBC 11.67 10^3/uL (4.4-10.8)
[2022-11-30 05:12] LABS: Absolute Neutrophil Count 7.36 10^3/uL (1.2-6.7)
[2022-11-30 05:14] LABS: HCG Qual (Serum) Negative
[2022-11-30] MEDS: Mylanta Suspension 30 ML CUP (05:26)
[2022-11-30] MEDS: Metoclopramide 10 MG/2 ML VIAL IVP (06:05)
--- NOTE | 2022-11-30 08:49 | DI.VRAD_ITS ---
PROCEDURE INFORMATION: Exam: XR Chest Exam date and time: 11/30/2022 5:00 AM Age: 27 years old Clinical indication: Cough.No history of trauma or recent surgery is provided. TECHNIQUE: Imaging protocol: Radiologic exam of the chest. 1image(s) are provided. Views: 1 view. COMPARISON: No prior relevant comparison study is currently available. FINDINGS: Lungs: No lobar consolidation is appreciated. Pleural spaces: No pneumothorax or pleural effusion is appreciated. Heart/Mediastinum: The cardiomediastinal silhouette is normal. No cardiac decompensation is appreciated. Diaphragm: There is slight asymmetric right hemidiaphragm elevation. Bones/joints: Osseous alignment is maintained.No displaced fracture or dislocation is appreciated. Soft tissues: No radiopaque foreign body or subcutaneous emphysema is appreciated. IMPRESSION: No lobar consolidation is appreciated.No acute cardiopulmonary changes are appreciated. Dictated and Authenticated by: Catracho Vinson MD. Ordering:PEDRO LUIS Boudreaux MD
== END 2022-11-30 06:27 | disposition home or self-care (01) ==
PROVIDERS: Emergency Provider Student in an Organized Health Care Education/Training Program; PCP Nurse Practitioner Family
DX: R11.2 Nausea with vomiting, unspecified (principal); K21.9 Gastro-esophageal reflux disease without esophagitis; K22.6 Gastro-esophageal laceration-hemorrhage syndrome
CPT/HCPCS: 36415; 80053; 83690; 93005; 96361; 96374; 96375; 96376; 99284; 71045; 83735; 84703; 85025; 93010; J2405; J2765

== ENCOUNTER 2022-12-03 02:33 | Emergency (ER) | payer BC, SELFPAY ==
[2022-12-03 02:30] VITALS: BP 120/50; PULSE 89; RESP 16; TEMP 36.6; O2SAT 98
--- NOTE | 2022-12-03 02:45 | DI.CT_ITS ---
Exam(s) CT RENAL COLIC WO EXAM: CT RENAL COLIC WO CLINICAL HISTORY: Right LQ and flank pain. TECHNIQUE: Imaging Protocol: Axial computed tomography images with coronal and sagittal reformatted images were created and reviewed. CONTRAST MATERIAL: Noncontrast COMPARISON: No exams were available for comparison FINDINGS: ABDOMEN: Lung Bases: Normal where visualized. Liver: Enlarged. Hepatic steatosis. No measurable mass. Gallbladder and biliary tract: Status post cholecystectomy. No radiodense calculus or dilation. Pancreas: Normal density, no calcifications or inflammatory process. Spleen: Normal. Kidneys: Normal size, contour and axis. 2 x 3 millimeter stone below the ureteropelvic all junction c ausing mild right hydronephrosis. Additional tiny nonobstructing stone lower pole left kidney. No m asses seen. Adrenal glands: No masses seen. Abdominal Aorta: Abdominal portion non-dilated. Soft tissues: Unremarkable. PELVIS: Bladder: Symmetric distention, no gross wall thickening. No evidence of stones.No visible mass. Bowel: No obstruction or bowel wall thickening. Surgical clips at base of cecum likely secondary to a ppendectomy. Reproductive: Unremarkable. Peritoneal cavity: No ascites, collection or mesenteric inflammatory response. Bones: Unremarkable for age.. IMPRESSION: Mild right hydronephrosis secondary to a 2 x 3 millimeter stone just below the ureteropelvic junction . RADIATION DOSE DELIVERED: 957.3mGy.cm Total DLP DATA REPOSITORY: All CT scans at this facility are submitted to the National Radiology Data Registry (NRDR) Dose Index Registry (DIR) with the [employer] (A[employer]). RADIATION OPTIMIZATION: All CT scans at this facility use at least one of these dose optimization te chniques: automated exposure control; mA and/or kV adjustment per patient size (includes targeted exa ms where dose is matched to clinical indication); or iterative reconstruction.
--- NOTE | 2022-12-03 02:49 | W.ED.GENAD ---
Discharge Plan Disposition Patient Disposition: Home Discharge Details Clinical Impression: Renal colic on right side, Kidney stone Primary Care Provider: Jing Bishop ED Provider: Car Balderrama Meds and New Rx's Prescriptions: New naproxen 375 mg tablet 375 mg PO BID PRN (Reason: pain) Qty: 30 0RF Continued medroxyprogesterone [Depo-Provera] 150 mg/mL suspension 150 mg IM Q12W Qty: 1 3RF albuterol sulfate 90 mcg/actuation HFA aerosol inhaler 2 inh inhalation Q6H PRN (Reason: shortness of breath or wheezing) Qty: 18 4RF naproxen sodium 220 mg Tablet 220 mg PO Q12H PRN Hold Instructions: Resume on 12/30/22. hold until nausea symptoms have fully resolved omeprazole 40 mg capsule,delayed release(DR/EC) 40 mg PO BID Qty: 60 2RF ondansetron 4 mg tablet,disintegrating 4 mg PO Q8H PRN PRN (Reason: nausea and vomiting) Qty: 20 0RF Discharge Instructions Instructions: Kidney Stones (ED) Discharge Data Discharge Physician: Car Balderrama Medical Decision Making Patient presents emergency department with right flank pain radiating to right lower quadrant. Urinalysis reveals microscopic hematuria as interpreted me the rest of the labs are unremarkable. CT scan renal protocol was obtained which was the kidneys to the mid ureter hydronephrosis. Patient was treated with Toradol with complete relief she is pain-free and will be discharged home Medical Records Medical records reviewed: Yes I reviewed the patient's medical records. Imaging Data Radiologic Study: Attestation: I personally reviewed and interpreted this imaging study as follows: Imaging: CT Scan My impression: Right-sided kidney is still in the ureterpelvic junction Radiologist's impression: Right-sided kidney is still in the ureterpelvic junction Lab Data Lab results reviewed: Yes I reviewed the patient's lab results. HPI General Date/Time Provider Initiated Documentation: 12/03/22 02:49. HPI Narrative: Patient presents to the emergency department stating that 3 years ago. Returns still with severe right pain radiates to quadrant associated with nausea. Reports still has severe and she is now 9/10 to pain that exacerbates. Related Data Home Medications Medication Instructions Recorded Confirmed naproxen sodium 220 mg tablet 220 mg PO Q12H PRN 03/03/22 12/03/22 albuterol sulfate 90 mcg/actuation 2 inh inhalation Q6H PRN shortness 06/24/22 12/03/22 aerosol inhaler of breath or wheezing #18 grams medroxyprogesterone 150 mg/mL 150 mg IM Q12W #1 mL 07/19/22 12/03/22 intramuscular suspension (Depo-Provera) omeprazole 40 mg capsule,delayed 40 mg PO BID #60 caps 11/30/22 12/03/22 release ondansetron 4 mg disintegrating 4 mg PO Q8H PRN PRN nausea and 11/30/22 12/03/22 tablet vomiting #20 tabs naproxen 375 mg tablet 375 mg PO BID PRN pain #30 tabs 12/03/22 Previous Rx's Medication Instructions Recorded albuterol sulfate 90 mcg/actuation 2 inh inhalation Q6H PRN shortness 06/24/22 aerosol inhaler of breath or wheezing #18 grams medroxyprogesterone 150 mg/mL 150 mg IM Q12W #1 mL 07/19/22 intramuscular suspension (Depo-Provera) omeprazole 40 mg capsule,delayed 40 mg PO BID #60 caps 11/30/22 release ondansetron 4 mg disintegrating 4 mg PO Q8H PRN PRN nausea and 11/30/22 tablet vomiting #20 tabs naproxen 375 mg tablet 375 mg PO BID PRN pain #30 tabs 12/03/22 Allergies Allergy/AdvReac Type Severity Reaction Status Date / Time tramadol AdvReac Hallucinati Unverified 12/03/22 02:41 ons General Stated Complaint: Abd Prob SONDRA: 3 Review of Systems All systems reviewed & are unremarkable except as noted in HPI and below Constitutional Constitutional: Reports as per HPI and Reports system reviewed and no additional complaints, except as documented Eyes Eyes: Reports as per HPI and Reports system reviewed and no additional complaints, except as documented ENT Ears, Nose, Mouth, and Throat: Reports system reviewed and no additional complaints, except as documented Cardiovascular Cardiovascular: Reports as per HPI and Reports system reviewed and no additional complaints, except as documented Respiratory Respiratory: Reports as per HPI and Reports system reviewed and no additional complaints, except as documented Gastrointestinal Gastrointestinal: Reports as per HPI and Reports system reviewed and no additional complaints, except as documented Genitourinary Genitourinary: Reports system reviewed and no additional complaints, except as documented Musculoskeletal Musculoskeletal: Reports system reviewed and no additional complaints, except as documented Integumentary/Breasts Skin/Breast: Reports system reviewed and no additional complaints, except as documented Neurologic Neurologic: Reports system reviewed and no additional complaints, except as documented Psychiatric Psychiatric: Reports system reviewed and no additional complaints, except as documented Endocrine Endocrine: Reports system reviewed and no additional complaints, except as documented PFSH All Active Problems (Updated 12/03/22 @ 04:23 by Car Balderrama MD) Nausea & vomiting (Acute) Citlali-Roberto tear (Acute) GERD (gastroesophageal reflux disease) (Chronic) Renal colic on right side (Acute) Kidney stone (Chronic) Nexplanon removal (Acute) Yeast vaginitis (Acute) Abnormal uterine bleeding (Acute) Contraceptive management (Acute) Well woman exam with routine gynecological exam (Acute) Endometriosis (Chronic) Sprain of right shoulder (Chronic) Chronic joint pain (Chronic) Asthma (Chronic) Obesity (Chronic) Medical History Adhesive capsulitis of right shoulder Depression Migraine Surgical History H/O laparoscopy Hx of cholecystectomy Family History Mother Substance use disorder Father No problems noted. Brother No problems noted. Brother No problems noted. Maternal Grandfather Heart disease Maternal Grandmother Heart disease Paternal Grandfather No problems noted. Paternal Grandmother No problems noted. Social History Smoking/Tobacco Use Status: Never Second Hand Exposure: Yes Smoking risk assessment performed?: Yes Alcohol Intake: current Alcohol Intake frequency: 3 or more drinks per day Alcohol type: wine and hard liquor Substance use type: does not use Caregiver/Support person: No Household members: none Housing: house Communication Needs: None Do you need help understanding health information?: Never Pets and animals: Yes Pets and animals: dog(s) Sexually active: No Do you think of yourself as: straight/heterosexual Current gender identity: female What is your relationship status?: never How often do you talk on the phone with friends or family?: twice per week How often do you get together with friends or relatives?: once per week How often do you attend baptist or adventism services?: decline to answer Do you belong to any clubs or organized social groups?: no Panel score (0-1 are the most socially isolated patients): 1 What type of physical activity do you participate in: yoga Duration: 15-30 minutes/day Frequency: 3-4 times per week Mamie/Latter Day: No preference Seatbelt use: sometimes Helmet use: No Drive intox or ride w/intox 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 driver operator: No Do you feel safe at home: Yes Do you feel safe in your relationship?: Yes Female Reproductive History Menstrual Age of Menarche: 12 Duration of menses: other control method: progesterone injection History History 0 Para Hx # Term Pregnancies Multiple births Hx # Pregnancies Ectopic pregnancies AB induced Hx Number of Living Children AB spontaneous Exam Narrative Exam Narrative: Exam; vitals signs as reported above Constitutional; in acute distress due to pain, afebrile General: cooperative, healthy appearing, comfortable and no acute distress HEENT: Head: normal to inspection, no palpable skull fracture and normocephalic Eyes: l: appearance normal, both eyes and all related structures ]Pupils: PERRL EOM: EOM intact bilaterally Direct ophthalmoscopy: normal light reflex, normal conjunctiva, normal visual acuity Neck no JVD, supple Neck: normal visual inspection, full ROM and no lymphadenopathy Chest Chest: normal inspection of the chest Respiratory : normal respiratory effort and able to speak in complete sentences Cardio Rate: regular rate Rhythm: regular rhythm normal heart sounds S1 and S2 no murmurs, gallops, or rubs GI Inspection: normal to inspection, normal bowel sounds, soft, non tender, non distended, no organomegally Back/Spine/ no CVA tenderness Thoracic/Lumbar Spine: no tenderness or deformities Skin no rashes or lesions Neuro: patient alert and no meningeal signs, Cranial Nerves: CN's II-XI intact bilaterally, Cognition: normal cognition, Speech: speech normal, Gait: normal gait, Depp tendon reflexes normal 2+ Extremities, no edema, full range of motion, normal strength Course Patient most likely with a regional pain received pain medication. Initially treated with medication first Dilaudid and then Toradol that gave her complete relief Vital Signs Vital signs: Vital Signs Temperature 36.6 C 12/03/22 02:30 Pulse 89 12/03/22 02:30 Respiratory Rate 16 12/03/22 02:30 Blood Pressure 120/50 L 12/03/22 02:30 Pulse Oximetry 98 12/03/22 02:30 Temperature 36.6 C 12/03/22 02:30 Temperature Source Temporal Artery Scan 12/03/22 02:30 Pulse 89 12/03/22 02:30 Respiratory Rate 16 12/03/22 02:30 Respiratory Effort Normal 12/03/22 02:30 Blood Pressure 120/50 L 12/03/22 02:30 Blood Pressure Position Supine 12/03/22 02:30 Pulse Oximetry 98 12/03/22 02:30 Oxygen Delivery Method Room Air 12/03/22 02:30 Oxygen Flow Rate 0 12/03/22 02:30 Pain Level 8 12/03/22 02:30 Lab/Test Results Lab/Test Results: Only dramality's. Prescribe cefdinir 3 Vital Signs & Lab Results Vital Signs Most Recent Vital Signs: Most Recent Vital Signs Temp Pulse Resp BP Pulse Ox 36.6 C 89 16 120/50 L 98 12/03/22 02:30 12/03/22 02:30 12/03/22 02:30 12/03/22 02:30 12/03/22 02:30 Point of Care Results Nursing Point of Care Results: Test(urine) Negative 12/03/22 02:58 Lab Results 12/03/22 02:45 12/03/22 02:45 Blood Type / Crossmatch: No Data to Display Complete Blood Count: White Blood Count 12.96 10^3/uL (4.4-10.8) H 12/03/22 02:45 Red Blood Count 5.24 10^6/uL (3.93-5.22) H 12/03/22 02:45 Hemoglobin 14.8 g/dL (11.2-15.7) 12/03/22 02:45 Hematocrit 42.9 % (36.0-46.0) 12/03/22 02:45 Platelet Count 347 10^3/uL (130-400) 12/03/22 02:45 Complete Metabolic Panel: Sodium 138 mmol/L (136-145) 12/03/22 02:45 Potassium 3.7 mmol/L (3.5-5.1) 12/03/22 02:45 Chloride 102 mmol/L (98-107) 12/03/22 02:45 Carbon Dioxide 20.4 mmol/L (21.0-32.0) L 12/03/22 02:45 BUN 15 mg/dL (7-18) 12/03/22 02:45 Creatinine 1.0 mg/dL (0.55-1.02) 12/03/22 02:45 Est GFR (CKD-EPI 2020) 79.19 (mL/min/1.73m2) 12/03/22 02:45 Magnesium 1.9 mg/dL (1.8-2.4) 12/03/22 02:45 Calcium 9.5 mg/dL (8.5-10.1) 12/03/22 02:45 Albumin 3.8 g/dL (3.4-5.0) 12/03/22 02:45 Glucose 92 mg/dL (74-106) 12/03/22 02:45 Liver Function Panel: Alanine Aminotransferase (ALT/SGPT) 35 U/L (14-59) 12/03/22 02:45 Aspartate Amino Transf (AST/SGOT) 17 U/L (15-37) 12/03/22 02:45 Coagulation Panel: No Data to Display Cardiac Panel: No Data to Display Arterial Blood Gas: No Data to Display Venous Blood Gas: No Data to Display Pancreas Panel: Lipase 26 U/L (16-77) 12/03/22 02:45 Thyroid Panel: No Data to Display Infectious Disease: No Data to Display Blood Cultures: No Data to Display Toxicology Panel: No Data to Display Panel: Serum HCG, Qualitative Negative 11/30/22 04:30
[2022-12-03 02:58] LABS: Bilirubin Negative (Negative); Blood Large (Negative); Clarity Clear (Clear); Glucose Negative (Negative); Ketones Negative (Negative); Leukocyte Esterase Negative (Negative); Nitrite Negative (Negative); Urobilinogen 0.2 mg/dL (Up to 0.2); pH 5.5 (5-8)
[2022-12-03] MEDS: Ondansetron 4 MG/2 ML VIAL IVP (03:00)
[2022-12-03] MEDS: HYDROmorphone 2 MG/ML SYR 0.5 MG IVP (03:01)
[2022-12-03 03:02] LABS: Bacteria Few HPF (Negative); C & S Indicated? No; Casts Negative LPF (Negative); Crystals Negative HPF (Negative); Epithelial Cells Rare HPF (Negative); Mucus Negative (Negative); RBC 20-50 HPF (0-2); WBC 0-2 HPF (0-5)
[2022-12-03] MEDS: Normal Saline 1,000 ML 1000 ML IV (03:03)
[2022-12-03 03:05] LABS: Abs Immature Grans 0.06 10^3/uL (0.0-0.06); Absolute Basophil Count 0.08 10^3/uL (0.0-0.2); Absolute Eosinophil Count 0.18 10^3/uL (0.0-0.7); Absolute Lymphocyte Count 3.88 10^3/uL (1.2-3.4); Absolute Monocyte Count 0.95 10^3/uL (0.1-0.8); Absolute Neutrophil Count 7.81 10^3/uL (1.2-6.7); Basophils % 0.6; Eosinophils % 1.4; HCT 42.9 % (36.0-46.0); HGB 14.8 g/dL (11.2-15.7); Immature Grans % 0.5; Lymphocytes % 29.9; MCH 28.2 pg (27.0-33.0); MCHC 34.5 % (32.0-36.0); MCV 82 fL (80-95); MPV 9.6 fL (8.0-11.0); Monocytes % 7.3; Neutrophils % 60.3; Platelet Count 347 10^3/uL (130-400); RBC 5.24 10^6/uL (3.93-5.22); RDW 12.1 % (11.7-14.6); RDW-SD 36.2 fL; WBC 12.96 10^3/uL (4.4-10.8)
[2022-12-03 03:18] LABS: ALT 35 U/L (14-59); AST 17 U/L (15-37); Albumin 3.8 g/dL (3.4-5.0); Alkaline Phosphatase 151 U/L (46-116); Anion Gap 15.6 mmol/L (3-11); BUN 15 mg/dL (7-18); Bilirubin, Total 0.3 mg/dL (0.2-1.0); CO2 20.4 mmol/L (21.0-32.0); Calcium 9.5 mg/dL (8.5-10.1); Chloride 102 mmol/L (98-107); Estimated GFR 79.19 (mL/min/1.73m2); Glucose 92 mg/dL (74-106); Lipase 26 U/L (16-77); Magnesium 1.9 mg/dL (1.8-2.4); Potassium 3.7 mmol/L (3.5-5.1); Sodium 138 mmol/L (136-145); Total Protein 7.8 g/dL (6.4-8.2)
[2022-12-03] MEDS: Ketorolac 15 MG/ML VIAL IVP (03:36)
--- NOTE | 2022-12-03 03:57 | DI.VRAD_ITS ---
PROCEDURE INFORMATION: Exam: CT Abdomen And Pelvis Without Contrast Exam date and time: 12/03/2022 3:14 AM Age: 27 years old Clinical indication: Abdominal pain; Flank; Right; Additional info: Acute right flank pain TECHNIQUE: Imaging protocol: Computed tomography of the abdomen and pelvis without contrast. Radiation optimization: All CT scans at this facility use at least one of these dose optimization techniques: automated exposure control; mA and/or kV adjustment per patient size (includes targeted exams where dose is matched to clinical indication); or iterative reconstruction. COMPARISON: CT LUMBAR SPINE WO 12/07/2021 5:10 PM FINDINGS: Liver: Hepatic steatosis. Gallbladder and bile ducts: Status post cholecystectomy. Pancreas: Normal. No ductal dilation. Spleen: Normal. No splenomegaly. Adrenal glands: Normal. No mass. Kidneys and ureters: Punctate calculus in the right ureteropelvic junction with minimal right hydronephrosis. Stomach and bowel: Unremarkable. No obstruction. No mucosal thickening. Appendix: No evidence of appendicitis. Intraperitoneal space: Unremarkable. No free air. No significant fluid collection. Vasculature: Unremarkable. No abdominal aortic aneurysm. Lymph nodes: Unremarkable. No enlarged lymph nodes. Urinary bladder: Unremarkable as visualized. Reproductive: Unremarkable as visualized. Bones/joints: Unremarkable. No acute fracture. Soft tissues: Unremarkable. IMPRESSION: Punctate calculus in the right ureteropelvic junction with minimal right hydronephrosis. Dictated and Authenticated by: Tucker Ponce MD. Ordering:CAT Yoon MD
[2022-12-03 04:45] VITALS: BP 107/49; PULSE 89; RESP 16; TEMP 36.6; O2SAT 100
== END 2022-12-03 09:06 | disposition home or self-care (01) ==
PROVIDERS: Emergency Provider Emergency Medicine Emergency Medical Services; PCP Nurse Practitioner Family
DX: N20.0 Calculus of kidney (principal); N23 Unspecified renal colic; R11.2 Nausea with vomiting, unspecified
CPT/HCPCS: 36415; 80053; 81025; 83690; 96361; 96374; 96375; 99284; 74176; 81003; 81015; 83735; 85025; J1170; J1885; J2405

== ENCOUNTER 2022-12-18 22:39 | Emergency (ER) | payer BC, SELFPAY ==
[2022-12-18 22:43] VITALS: BP 105/69; PULSE 84; RESP 20; TEMP 36.5; O2SAT 98
--- NOTE | 2022-12-18 23:09 | W.ED.GENAD ---
Discharge Plan Disposition Patient Disposition: Home Discharge Details Clinical Impression: Kidney stone on left side Primary Care Provider: Jing Bishop ED Provider: Kiera Lundy Home Meds and New Rx's Prescriptions: New hydrocodone-acetaminophen 5-300 mg tablet 1 tab PO Q4H PRN (Reason: pain) Qty: 20 0RF No Action medroxyprogesterone [Depo-Provera] 150 mg/mL suspension 150 mg IM Q12W Qty: 1 3RF albuterol sulfate 90 mcg/actuation HFA aerosol inhaler 2 inh inhalation Q6H PRN (Reason: shortness of breath or wheezing) Qty: 18 4RF naproxen sodium 220 mg Tablet 220 mg PO Q12H PRN Hold Instructions: Resume on 12/30/22. hold until nausea symptoms have fully resolved omeprazole 40 mg capsule,delayed release(DR/EC) 40 mg PO BID Qty: 60 2RF ondansetron 4 mg tablet,disintegrating 4 mg PO Q8H PRN PRN (Reason: nausea and vomiting) Qty: 20 0RF naproxen 375 mg tablet 375 mg PO BID PRN (Reason: pain) Qty: 30 0RF Discharge Instructions Instructions: Kidney Stones (ED) Additional Instructions: Drink plenty of fluids. Ibuprofen 600 mg every 6 hours as needed for pain. You may take Vicodin as needed for pain controlled with ibuprofen. Take two 4 mg Zofran tablets every 8 hours as needed for nausea. Return to ED for fever of 100.4 or above or uncontrolled pain. Dr. Pastor's office will call you Tuesday for a follow-up appointment if you are not improved. Medical Decision Making Patient feels much better after Toradol and Zofran in the ED. She does have blood in her urine and I suspect the small stone in the left kidney is now passing. I discussed this extensively with her. I did not feel that repeating a CT on a 27-year-old who had 1 a month ago is in the patient's best interest and she concurs of note, somehow all of her home medications got ordered. I am able to cancel all of them except for her omeprazole. I discussed this with nursing and omeprazole is canceled. I will have Dr. Pastor's office call the patient Tuesday for follow-up appointment. She will return for fever or uncontrolled pain. Medical Records Medical records reviewed: Yes I reviewed the patient's medical records. Lab Data Lab results reviewed: Yes I reviewed the patient's lab results. Lab results narrative: Urinalysis shows positive blood. HPI General Date/Time Provider Initiated Documentation: 12/18/22 23:09. HPI Narrative: This 27-year-old female patient presents with a chief complaint of left flank pain that began around 8:00 tonight. The patient states she felt vaguely nauseous at work at 6:00 and took 4 mg of Zofran left over from the prior kidney stone she was diagnosed with on 03 December of this year. The nausea got worse and she vomited as the left flank pain began. She feels like she has a little bit of frequency of urination but has no hematuria, urgency, or pain on urination. She has no belly pain or urination. There is no fever. The pain in her left flank area is sharp and severe colicky. It comes and goes. Nothing really makes it better or worse. The Naprosyn that she took after the first kidney stone did not work. Related Data Home Medications Medication Instructions Recorded Confirmed naproxen sodium 220 mg tablet 220 mg PO Q12H PRN 03/03/22 12/03/22 albuterol sulfate 90 mcg/actuation 2 inh inhalation Q6H PRN shortness 06/24/22 12/03/22 aerosol inhaler of breath or wheezing #18 grams medroxyprogesterone 150 mg/mL 150 mg IM Q12W #1 mL 07/19/22 12/03/22 intramuscular suspension (Depo-Provera) omeprazole 40 mg capsule,delayed 40 mg PO BID #60 caps 11/30/22 12/03/22 release ondansetron 4 mg disintegrating 4 mg PO Q8H PRN PRN nausea and 11/30/22 12/03/22 tablet vomiting #20 tabs naproxen 375 mg tablet 375 mg PO BID PRN pain #30 tabs 12/03/22 hydrocodone 5 mg-acetaminophen 300 1 tab PO Q4H PRN pain #20 tabs 12/19/22 mg tablet Previous Rx's Medication Instructions Recorded albuterol sulfate 90 mcg/actuation 2 inh inhalation Q6H PRN shortness 06/24/22 aerosol inhaler of breath or wheezing #18 grams medroxyprogesterone 150 mg/mL 150 mg IM Q12W #1 mL 07/19/22 intramuscular suspension (Depo-Provera) omeprazole 40 mg capsule,delayed 40 mg PO BID #60 caps 11/30/22 release ondansetron 4 mg disintegrating 4 mg PO Q8H PRN PRN nausea and 11/30/22 tablet vomiting #20 tabs naproxen 375 mg tablet 375 mg PO BID PRN pain #30 tabs 12/03/22 hydrocodone 5 mg-acetaminophen 300 1 tab PO Q4H PRN pain #20 tabs 12/19/22 mg tablet Allergies Allergy/AdvReac Type Severity Reaction Status Date / Time tramadol AdvReac Hallucinati Unverified 12/03/22 02:41 ons General Stated Complaint: FlankPain SONDRA: 3 Review of Systems Constitutional Constitutional: Denies chills, Denies fever(s), Denies headache(s) and Denies weakness Eyes Eyes: Denies diplopia and Reports other (no redness) ENT Ears, Nose, Mouth, and Throat: Denies otalgia, Denies headache(s), Denies nasal congestion, Denies nasal discharge, Denies neck pain and Denies sore throat Cardiovascular Cardiovascular: Denies chest pain, Denies palpitations and Denies dyspnea Respiratory Respiratory: Denies cough and Denies dyspnea Gastrointestinal Gastrointestinal: Denies abdominal pain, Denies diarrhea, Denies nausea and Denies vomiting Genitourinary Genitourinary: Denies dysuria Musculoskeletal Musculoskeletal: Denies myalgias, Denies muscle weakness, Denies neck pain, Denies numbness and Reports other (edema) Comments: Has left flank pain Integumentary/Breasts Skin/Breast: Denies change in pigmentation and Denies rash Neurologic Neurologic: Denies headache(s), Denies numbness and Denies weakness Endocrine Endocrine: Denies palpitations PFSH All Active Problems Nausea & vomiting (Acute) Citlali-Roberto tear (Acute) GERD (gastroesophageal reflux disease) (Chronic) Renal colic on right side (Acute) Kidney stone (Chronic) Kidney stone on left side (Acute) Nexplanon removal (Acute) Yeast vaginitis (Acute) Abnormal uterine bleeding (Acute) Contraceptive management (Acute) Well woman exam with routine gynecological exam (Acute) Endometriosis (Chronic) Sprain of right shoulder (Chronic) Chronic joint pain (Chronic) Asthma (Chronic) Obesity (Chronic) Medical History Adhesive capsulitis of right shoulder Depression Migraine Surgical History H/O laparoscopy Hx of cholecystectomy Family History Mother Substance use disorder Father No problems noted. Brother No problems noted. Brother No problems noted. Maternal Grandfather Heart disease Maternal Grandmother Heart disease Paternal Grandfather No problems noted. Paternal Grandmother No problems noted. Social History Smoking/Tobacco Use Status: Never Second Hand Exposure: Yes Smoking risk assessment performed?: Yes Alcohol Intake: current Alcohol Intake frequency: 3 or more drinks per day Alcohol type: wine and hard liquor Substance use type: does not use Caregiver/Support person: No Household members: none Housing: house Communication Needs: None Do you need help understanding health information?: Never Pets and animals: Yes Pets and animals: dog(s) Sexually active: No Do you think of yourself as: straight/heterosexual Current gender identity: female What is your relationship status?: never How often do you talk on the phone with friends or family?: twice per week How often do you get together with friends or relatives?: once per week How often do you attend jehovah's witness or jain services?: decline to answer Do you belong to any clubs or organized social groups?: no Panel score (0-1 are the most socially isolated patients): 1 What type of physical activity do you participate in: yoga Duration: 15-30 minutes/day Frequency: 3-4 times per week Mamie/Mosque: No preference Seatbelt use: sometimes Helmet use: No 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 Do you feel safe at home: Yes Do you feel safe in your relationship?: Yes Female Reproductive History Menstrual Age of Menarche: 12 Duration of menses: other control method: progesterone injection History History 0 Para Hx # Term Pregnancies Multiple births Hx # Pregnancies Ectopic pregnancies AB induced Hx Number of Living Children AB spontaneous Exam Const General: no acute distress, well developed, well groomed and not in acute distress Nutritional Appearance: well nourished Orientation: alert and oriented x3 HENVT Head: normocephalic and atraumatic Ears: external ears normal Mouth: oropharynx normal and moist mucous membranes Throat: posterior oropharynx normal Eyes Conjunctivae: conjunctivae normal Neck Neck: full ROM and supple Chest Chest: normal inspection of the chest Resp Effort & Inspection: normal respiratory effort Auscultation: clear to auscultation bilaterally Cardio Rate: regular rate Rhythm: regular rhythm Heart Sounds: no murmurs and no rubs GI Inspection: normal to inspection Palpation: soft, nontender and other (non distended) Auscultation: normal bowel sounds Skin General skin exam: no rashes or lesions noted and other (pink, warm, dry) Neuro General: patient alert, patient awake and patient oriented x3 Speech: speech normal Motor: other (CONCEPCION) Sensory Exam: no sensory deficits noted Extrem General: normal to inspection, full ROM and pedal edema present Psych Mental Status: mental status grossly normal Speech and Movement: speech and movement normal Affect: normal affect Course Vital Signs Vital signs: Vital Signs Temperature 36.5 C 12/18/22 22:43 Pulse 84 12/18/22 22:43 Respiratory Rate 20 12/18/22 22:43 Blood Pressure 105/69 12/18/22 22:43 Pulse Oximetry 98 12/18/22 22:43 Temperature 36.5 C 12/18/22 22:43 Temperature Source Oral 12/18/22 22:43 Pulse 84 12/18/22 22:43 Respiratory Rate 20 12/18/22 22:43 Respiratory Effort Normal 12/18/22 22:46 Blood Pressure 105/69 12/18/22 22:43 Blood Pressure Position Sitting 12/18/22 22:43 Pulse Oximetry 98 12/18/22 22:43 Oxygen Delivery Method Room Air 12/18/22 22:43 Oxygen Flow Rate 0 12/18/22 22:43 Pain Level 3 12/18/22 22:46
[2022-12-18] MEDS: Ketorolac 15 MG/ML VIAL IVP (23:47)
[2022-12-18 23:50] LABS: Bilirubin Negative (Negative); Blood Moderate (Negative); Clarity Clear (Clear); Glucose Negative (Negative); Ketones Negative (Negative); Leukocyte Esterase Negative (Negative); Nitrite Negative (Negative); Specific Gravity >= 1.030 (1.005-1.025); Urobilinogen 0.2 mg/dL (Up to 0.2)
[2022-12-18 23:55] LABS: Bacteria Moderate HPF (Negative); C & S Indicated? No; Casts Negative LPF (Negative); Crystals Negative HPF (Negative); Epithelial Cells Moderate HPF (Negative); Mucus Negative (Negative); WBC 0-2 HPF (0-5)
[2022-12-18] MEDS: Normal Saline 1,000 ML 1000 ML IV (23:58)
[2022-12-18] MEDS: Ondansetron 4 MG/2 ML VIAL IVP (23:58)
[2022-12-19] MEDS: HYDROcodone 5/Acetaminophen 325 TAB PO (01:06)
[2022-12-19 01:13] VITALS: BP 102/60; PULSE 70; RESP 20; O2SAT 98
--- NOTE | 2022-12-19 01:59 | NUR.NOTE ---
Referral faxed to [facility] to f/u for kidney stone.Nursing Note:
== END 2022-12-19 01:16 | disposition home or self-care (01) ==
PROVIDERS: Emergency Provider Emergency Medicine; PCP Nurse Practitioner Family
DX: N20.0 Calculus of kidney (principal)
CPT/HCPCS: 96361; 96374; 96375; 99284; 81003; 81015; J1885; J2405

== ENCOUNTER 2023-02-14 08:04 | Day surgery (SDC) | payer BC, SELFPAY ==
[2023-02-14] VITALS (9 sets, daily range): BP systolic 99–129; BP diastolic 57–76; PULSE 55–95; RESP 16–20; TEMP 36.2–36.7; O2SAT 94–99; BMI 40.4
[2023-02-14] MEDS: Lactated Ringers 1,000 ML 80 ML IV (09:27)
--- NOTE | 2023-02-14 10:06 | W.ANESPRE ---
General Info Date of Service Date Performed: 02/14/23 Height: 5 ft Weight: 93.8 kg Body Mass Index (BMI): 40.4 Surgical Procedure: Operation Date: 02/14/23 11:25 Proposed Procedure Side Surgeon p Cystoscopy/Possible Laser/Retrograde/Ureteroscopy Right Cruz Pastor MD Meds Allergies and Home Medications Allergies Allergy/AdvReac Type Severity Reaction Status Date / Time tramadol AdvReac Hallucinati Verified 02/14/23 08:22 ons Home Medication Medication Instructions Recorded naproxen sodium 220 mg tablet 220 mg PO Q12H PRN 03/03/22 albuterol sulfate 90 mcg/actuation 2 inh inhalation Q6H PRN shortness 06/24/22 aerosol inhaler of breath or wheezing #18 grams medroxyprogesterone 150 mg/mL 150 mg IM Q12W #1 mL 07/19/22 intramuscular suspension (Depo-Provera) omeprazole 40 mg capsule,delayed 40 mg PO BID #60 caps 11/30/22 release ondansetron 4 mg disintegrating 4 mg PO Q8H PRN PRN nausea and 11/30/22 tablet vomiting #20 tabs naproxen 375 mg tablet 375 mg PO BID PRN pain #30 tabs 12/03/22 hydrocodone 5 mg-acetaminophen 300 1 tab PO Q4H PRN pain #20 tabs 12/19/22 mg tablet ibuprofen 200 mg tablet 200 - 800 mg PO PRN PRN 02/14/23 Current Visit Medications: Current Medications Generic Name Dose Route Start Last Admin Trade Name Freq PRN Reason Stop Dose Admin Ringer's Solution 1,000 mls @ 80 mls/hr 02/14/23 06:00 02/14/23 09:27 IV 03/13/23 23:59 80 mls/hr INFUSION VALENTINA Administration Cefazolin Sodium/Dextrose 2 gm in 50 mls @ 100 mls/hr 02/14/23 06:00 Ancef Duplex IVPB 02/14/23 16:00 PREOP VALENTINA IV Miscellaneous Supplies 1 each 02/14/23 06:00 Iv Access IV 03/13/23 23:59 DIRECTED VALENTINA Sodium Chloride 0 ml 02/14/23 06:00 Normal Saline Flush 10 Ml Syr IV 03/13/23 23:59 PRN PRN Sodium Chloride 0 ml 02/14/23 06:00 Normal Saline 10 Ml Vial IJ 03/13/23 23:59 DIRECTED PRN Sterile Water 0 ml 02/14/23 06:00 Water,Injection,Sterile 10 Ml Vial IJ 03/13/23 23:59 DIRECTED PRN PFSH Active Problems Active Problems: Problem Status Onset Code Right ureteral calculus N20.1 Nexplanon removal Z30.46 Yeast vaginitis B37.31 Abnormal uterine bleeding N93.9 Contraceptive management Z30.9 Well woman exam with routine gynecological exam Z01.419 Endometriosis N80.9 Sprain of right shoulder S43.401A Chronic joint pain M25.50, G89.29 Asthma J45.909 Obesity E66.9 Medical History Medical History Adhesive capsulitis of right shoulder Depression Migraine Medical History Comments:: pt states she screams and cries when awaking from anesthesia Surgical History Surgical History H/O laparoscopy Hx of cholecystectomy Tobacco Smoking/Tobacco Use Status: Never Second hand exposure: Yes Alcohol Alcohol Intake: current Alcohol intake frequency: 3 or more drinks per day Alcohol type: wine and hard liquor Substance Use Substance use type: does not use Details: alcohol t-7 Prental History History 0 Para Hx # Term Pregnancies Multiple births Hx # Pregnancies Ectopic pregnancies AB induced Hx Number of Living Children AB spontaneous Vital Signs and Lab Results Vital Signs Most Recent Vital Signs in EMR: Most Recent Vital Signs Temp Pulse Resp BP Pulse Ox 36.7 C 95 H 20 111/76 98 02/14/23 08:32 02/14/23 08:32 02/14/23 08:32 02/14/23 08:32 02/14/23 08:32 Point of Care Results Point of Care Results: POC- Test(urine) Negative 02/14/23 09:25 Lab Results Blood Type / Crossmatch: No Data to Display Complete Blood Count: No Data to Display Complete Metabolic Panel: No Data to Display Liver Function Panel: No Data to Display Coagulation Panel: No Data to Display Cardiac Panel: No Data to Display Arterial Blood Gas: No Data to Display Venous Blood Gas: No Data to Display Pancreas Panel: No Data to Display Thyroid Panel: No Data to Display Infectious Disease: No Data to Display Blood Cultures: No Data to Display Toxicology Panel: No Data to Display Panel: No Data to Display Imaging and Studies Imaging and Studies Study information below may be from another EMR and interpreted by another provider. Please see original notes in EMR for more complete details. EKG Summary: 11/30/22: Exam: Resting ECG Reason for Exam: dizzy Patient Location: E HR:65 bpm ECG Measurements Heart Rate 65 AXIS WV 143 P 31 QRSd 76 QRS 12 QT 410 T13 QTc 427 Conclusion Sinus rhythm...normal P axis, V-rate 60- 99 Low voltage, precordial leads...precordial leads <1.0mV I have reviewed and I agree with the emergency room physician's ECG interpretation. Anesthesia Assessment and Plan Anesthesia History Personal History: Other Family History: Family History Unknown Exercise Tolerance Exercise Tolerance: Metabolic Equivalents>4 Cardiac & Pulmonary Exam Cardiac Exam: Normal S1/S2 Heart Sounds Pulmonary Exam: Clear Bilateral Breath Sounds Implantable Cardiac Device Does patient have a Pacemaker or an ICD?: No Airway Exam Known Difficult Airway: No Mallampati Class: 1 Mouth Opening: Normal (> 3cm) Thyromental Distance: Greater than 3 cm Neck Range of Motion: Full ROM Neck Circumference: Normal Teeth Condition: Normal Dentition ASA Classification ASA Score: ASA 3 Emergency Case?: No NPO Status NPO Status: NPO Clears >2 hours, Solids >8 hours Status Status: Negative HCG Anesthesia Plan Resuscitation Status: Full Code Anesthesia Technique: General Anesthesia Airway Planned: Natural Airway Monitors Used: Standard Monitors
--- NOTE | 2023-02-14 10:35 | W.PM.HP.N ---
Date of service: 02/14/23 Time of Service: 10:35 Assessment and Plan Assessment and plan (1) Right ureteral calculus: Status: Acute Assessment and plan: We will do cystoscopy with bilateral retrograde pyelogram. We will be prepared to do bilateral ureteroscopy to address any stone that is identified. History of Present Illness History of Present Illness Chief Complaint: Right ureteral stone Narrative: Chief complaint: Right ureteral stone This is a 27-year-old who presented to the emergency department with an acute onset of severe right back pain.? She does have some chronic pain that she attributes to sciatica. On the evening before she presented to the emergency department, she had a slight increase in her pain so she took additional naproxen and used heat.? Later that night, she was awakened with severe right back pain without radiation.? She has had intermittent nausea and vomiting.? Her pain continues to be in the back.? She has not passed a stone as far she can tell. She is also having some left back pain. Her CT scan done through the ED showed a nonobstructing left kidney stone. She has no history of gout or hyperparathyroidism.? She is adopted, so she is not certain about her family history.? She has never had any type of urologic surgery.? She has no issues with anesthesia previously.? She has no known bleeding disorders. Review of Systems Narrative: No fevers or chills No vision change or dysphasia No diabetes or thyroid dysfunction Hx asthma with no recent flareup. No shortness of breath, cough or hemoptysis No chest pain or palpitations Nausea and vomiting. No hepatitis, ulcers, jaundice No seizures, strokes or peripheral neuropathy No bleeding disorders or anemia No gout PFSH All Active Problems Right ureteral calculus (Acute) Nexplanon removal (Acute) Yeast vaginitis (Acute) Abnormal uterine bleeding (Acute) Contraceptive management (Acute) Well woman exam with routine gynecological exam (Acute) Endometriosis (Chronic) Sprain of right shoulder (Chronic) Chronic joint pain (Chronic) Asthma (Chronic) Obesity (Chronic) Medical History Adhesive capsulitis of right shoulder Depression Migraine Surgical History H/O laparoscopy Hx of cholecystectomy Family History Mother Substance use disorder Father No problems noted. Brother No problems noted. Brother No problems noted. Maternal Grandfather Heart disease Maternal Grandmother Heart disease Paternal Grandfather No problems noted. Paternal Grandmother No problems noted. Social History Smoking/Tobacco Use Status: Never Second Hand Exposure: Yes Smoking risk assessment performed?: Yes Alcohol Intake: current Alcohol Intake frequency: 3 or more drinks per day Alcohol type: wine and hard liquor Substance use type: does not use Details: alcohol t-7 Caregiver/Support person: No Household members: none Housing: apartment Communication Needs: None Do you need help understanding health information?: Never Pets and animals: Yes Pets and animals: dog(s) Sexually active: No Do you think of yourself as: straight/heterosexual Current gender identity: female What is your relationship status?: never How often do you talk on the phone with friends or family?: twice per week How often do you get together with friends or relatives?: once per week How often do you attend rastafari or buddhism services?: decline to answer Do you belong to any clubs or organized social groups?: no Panel score (0-1 are the most socially isolated patients): 1 What type of physical activity do you participate in: yoga Duration: 15-30 minutes/day Frequency: 3-4 times per week Mamie/Presybeterian: No preference Seatbelt use: sometimes Helmet use: No 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 Do you feel safe at home: Yes Do you feel safe in your relationship?: Yes Additional Social history: lives alone Female Reproductive History Menstrual Age of Menarche: 12 Duration of menses: other control method: progesterone injection History History 0 Para Hx # Term Pregnancies Multiple births Hx # Pregnancies Ectopic pregnancies AB induced Hx Number of Living Children AB spontaneous Meds Allergies and Home Medications Allergies Allergy/AdvReac Type Severity Reaction Status Date / Time tramadol AdvReac Hallucinati Verified 02/14/23 08:22 ons Home Medications Medication Instructions Recorded Confirmed Type naproxen sodium 220 mg tablet 220 mg PO Q12H PRN 03/03/22 02/11/23 History albuterol sulfate 90 mcg/actuation 2 inh inhalation Q6H PRN shortness 06/24/22 02/11/23 Rx aerosol inhaler of breath or wheezing #18 grams medroxyprogesterone 150 mg/mL 150 mg IM Q12W #1 mL 07/19/22 02/11/23 Rx intramuscular suspension (Depo-Provera) omeprazole 40 mg capsule,delayed 40 mg PO BID #60 caps 11/30/22 02/11/23 Rx release ondansetron 4 mg disintegrating 4 mg PO Q8H PRN PRN nausea and 11/30/22 02/11/23 Rx tablet vomiting #20 tabs naproxen 375 mg tablet 375 mg PO BID PRN pain #30 tabs 12/03/22 02/11/23 Rx hydrocodone 5 mg-acetaminophen 300 1 tab PO Q4H PRN pain #20 tabs 12/19/22 02/11/23 Rx mg tablet ibuprofen 200 mg tablet 200 - 800 mg PO PRN PRN 02/14/23 02/14/23 History Exam Const General: cooperative Neck Neck: supple Resp Effort & Inspection: normal respiratory effort Auscultation: clear to auscultation bilaterally Cardio Rate: regular rate Rhythm: regular rhythm GI Inspection: obesity Palpation: soft and no masses Neuro General: patient alert, patient awake and patient oriented x3 Results Last Vital Signs Temp 36.7 C 02/14/23 08:32 Pulse 95 H 02/14/23 08:32 Resp 20 02/14/23 08:32 BP 111/76 02/14/23 08:32 Pulse Ox 98 02/14/23 08:32 Time Spent Time spent with Patient: <40 minutes Time was spent: other
[2023-02-14] MEDS: ceFAZolin 2 GM/50 ML BAG IVPB (11:01)
[2023-02-14] MEDS: Lidocaine 2% Jelly 6 ML SYR (11:19)
[2023-02-14] MEDS: Omnipaque 300 MG/ML 50 ML BTL (11:21)
--- NOTE | 2023-02-14 11:37 | DI.RAD_ITS ---
Exam(s) XR RETROGRADE IN OR EXAM: XR RETROGRADE IN OR CLINICAL HISTORY: BILATERAL; LEFT KIDNEY STONE, RIGHT URETERAL STONE. TECHNIQUE: Fluoroscopy was provided for the referring physician for guidance with performing retrogr meera procedure. COMPARISON: US US ABDOMEN from 02/09/2023 FINDINGS: Please see procedure note for details. Fluoro time: 1 minutes 6 seconds RADIATION DOSE DELIVERED: Francisr=16.8 mGy
--- NOTE | 2023-02-14 11:43 | W.PM.OP ---
Date of service: 02/14/23 Time of Service: 11:43 Operative Note Operative Note DATE OF PROCEDURE: 02/14/23 PRE-OP DIAGNOSIS: Right ureteral stone Right ureteral stricture PROCEDURE: Cystoscopy, bilateral retrograde pyelogram, right ureteroscopy, insert right ureteral stent SURGEON: Cruz Pastor ANESTHESIA TYPE: Local By Surgeon and General:No Airway Refer to Anesthesia Record ESTIMATED BLOOD LOSS: 10 PATHOLOGY: none sent COMPLICATIONS: None Patient was transported to: same day Patient's condition: stable Implants: 4.8 Bangladeshi by 22 to 30 cm right ureteral stent Indications: This is a 27-year-old woman who has a history of right flank pain. She was evaluated in the emergency department and found to have a right proximal ureteral stone. The stone was quite small, but she is remained symptomatic and has not passed her stone as far as she is aware. She presents now for right ureteroscopy with stone manipulation. She is also been having some left-sided flank pain. She had a nonobstructing left kidney stone on CT scan. She is agreeable to a left retrograde pyelogram and possible left ureteroscopy as well. Findings: Right ureteral narrowing in the proximal third of the ureter. The area of narrowing corresponds to her previous right ureteral stone location Small stones in right calyces Procedure Description: The patient was given IV antibiotics and brought to the operating room on 02/14/2023. After successful induction of general anesthesia, she was placed in the dorsal lithotomy position. Her genitalia was prepped and draped. 2% Xylocaine jelly was instilled into the urethra to act as a local anesthetic. A 22 Bangladeshi rigid cystoscope was passed through the urethra into the bladder. The bladder was inspected with a 30 degree lens. Both ureteral orifices appeared normal with no blood coming from either side. Each orifice was cannulated with a 5 Bangladeshi access catheter. Retrograde pyelograms were obtained by injecting Omnipaque through the access catheter under fluoroscopic guidance. On the right side, the distal ureter appeared normal with no filling defects. There was a narrowing in the right proximal ureter with no identified filling defects above this level. On the left side, both the ureter and calyces appeared normal with no filling defects. I then passed a guidewire through the access catheter and maneuvered it into the right ureteral orifice. The wire was advanced and the access catheter was removed. I then passed a dual-lumen catheter over the wire and positioned a second wire. We chose one of the wires as a working wire and the other as a safety wire. I ran the flexible ureteroscope over the working wire leaving the safety wire in place. In the proximal third of the ureter, I encountered a narrowing through which I was unable to pass the flexible ureteroscope. I then removed the ureteroscope and passed the dual-lumen catheter over the safety wire. I was able to advance the dual-lumen catheter up above the level of the ureteral stricture. I then repositioned a second wire and passed a ureteral access sheath over the working wire. We again left the safety wire in place when we removed the working wire. I was able to pass the flexible ureteroscope through the lumen of the ureteral access sheath. I inspected each of the calyces and found small stones that were present but no large stone burden was seen. I then withdrew the ureteroscope down the ureter and inspected as I withdrew the scope. In the area of the previous ureteral stricture, there was a tear in the ureteral mucosa medially. There was no complete disruption of the ureteral mucosa. No ureteral stones were visualized. Once the ureteroscope was removed, I passed a 4.8 Bangladeshi variable length stent over the safety wire. We position the stent with the proximal end curled in the renal pelvis and the distal end curled within the bladder. We will allow a dwell time of several weeks before having the patient come back in for cystoscopy, stent removal and retrograde pyelogram to ensure that the strictured area has both healed and remained open. The patient tolerated this procedure well with no complications.
--- NOTE | 2023-02-14 11:43 | W.PM.DSUDISC ---
Date of service: 02/14/23 Time of Service: 11:43 Discharge Plan Disposition Patient Disposition: Home Condition: Stable Discharge Details Reason For Visit: ureteroscopy Attending Provider: Cruz Pastor Primary Care Provider: Jing Bishop Home Meds and New Rx's Prescriptions: No Action medroxyprogesterone [Depo-Provera] 150 mg/mL suspension 150 mg IM Q12W Qty: 1 3RF albuterol sulfate 90 mcg/actuation HFA aerosol inhaler 2 inh inhalation Q6H PRN (Reason: shortness of breath or wheezing) Qty: 18 4RF ibuprofen 200 mg Tablet 200 - 800 mg PO PRN PRN naproxen sodium 220 mg Tablet 220 mg PO Q12H PRN Hold Instructions: Resume on 12/30/22. hold until nausea symptoms have fully resolved omeprazole 40 mg capsule,delayed release(DR/EC) 40 mg PO BID Qty: 60 2RF ondansetron 4 mg tablet,disintegrating 4 mg PO Q8H PRN PRN (Reason: nausea and vomiting) Qty: 20 0RF naproxen 375 mg tablet 375 mg PO BID PRN (Reason: pain) Qty: 30 0RF hydrocodone-acetaminophen 5-300 mg tablet 1 tab PO Q4H PRN (Reason: pain) Qty: 20 0RF Discharge Instructions Additional Instructions: You have a stent in place - it is not unusual to see blood in the urine or have urinary frequency and urgency while the stent is in place My office will contact you for a followup out-patient procedure to remove your stent You do not need to strain your urine Stand Alone Forms: Anesthesia Discharge Inst., [facility], Press Larry ([facility]) Activity:: Activity as Tolerated Shower/Bathe:: 24 hours Diet:: As Tolerated Discharge Orders Discharge Orders: Discharge Order (Routine); Ordered 02/14/23 Ordered By: Cruz Pastor DS: Diagnosis Discharge Diagnosis (1) Right ureteral calculus: Status: Acute
[2023-02-14] MEDS: Ondansetron 4 MG/2 ML VIAL IVP (12:09)
[2023-02-14] MEDS: fentaNYL 100 MCG/2 ML VIAL IVP (12:28)
--- NOTE | 2023-02-14 13:31 | W.ANESPOSTOP ---
Postoperative Evaluation Date, Time and Location Date Performed: 02/14/23 Time Performed: 13:32 Patient Location: Day Surgery Unit Vital Signs Most Recent Imported Vital Signs: Most Recent Vital Signs Temp Pulse Resp BP Pulse Ox 36.2 C L 75 18 109/72 96 02/14/23 12:49 02/14/23 12:49 02/14/23 12:49 02/14/23 12:49 02/14/23 12:49 Pain Score Most Recent Pain Score: Most Recent Pain Score Pain Level 6 02/14/23 12:49 Assessment Mental Status: Awake (Alert & Oriented to Patient Baseline) Airway and Respiratory Function: Patent airway with normal (patient baseline) respiratory exam Cardiovascular Function: Hemodynamically Stable Hydration Status: Adequately Hydrated Nausea & Vomiting: No Nausea or Vomiting Pain: Pain is Moderate or Severe Postoperative Pain Management: Pain being addressed with medication Peripheral Nerve Block: Patient did not receive a nerve block
[2023-02-14] MEDS: Phenazopyridine 200 MG TAB PO (13:52)
== END 2023-02-14 14:50 | disposition home or self-care (01) ==
PROVIDERS: PCP Nurse Practitioner Family; Visit Provider Urology
PROC: (CPT 52332; principal; 2023-02-14 11:15)
DX: N20.1 Calculus of ureter (principal)
CPT/HCPCS: 52332; 52351; 81025; 74420; J0690; J1100; J1885; J2250; J2405; J3010; Q9967

== ENCOUNTER 2023-03-03 06:18 | Day surgery (SDC) | payer BC, SELFPAY ==
[2023-03-03] VITALS (11 sets, daily range): BP systolic 94–118; BP diastolic 50–65; PULSE 51–83; RESP 13–18; TEMP 36.4–37.1; O2SAT 92–98; BMI 39.4
--- NOTE | 2023-03-03 06:48 | W.PM.HP.N ---
Date of service: 03/03/23 Time of Service: 06:48 Assessment and Plan Assessment and plan (1) Right ureteral calculus: Status: Acute Assessment and plan: For cystpscopy, stent removal, right retrograde pyelogram and possible ureteroscopy History of Present Illness History of Present Illness Chief Complaint: right ureteral stone Narrative: This is a 27-year-old woman who has a history of a right ureteral stone. She was not aware of passing the stone and she remained symptomatic. We brought her to the operating room and did a retrograde pyelogram and ureteroscopy. We found a narrowing in the right ureter that required dilation and stenting. She presents now for cystoscopy, stent removal, retrograde pyelogram to ensure the ureter was well-healed and possible ureteroscopy. Since her last procedure, she has had intermittent hematuria especially with activity. She has not had any fevers or chills. She has not developed clot retention. Review of Systems Narrative: No fevers or chills No vision change or dysphasia No diabetes or thyroid No shortness of breath, cough or hemoptysis No chest pain or palpitations No nausea, vomiting, hepatitis, ulcers, jaundice, diarrhea or constipation No seizures, strokes or peripheral neuropathy No bleeding disorders or anemia No gout or arthralgia PFSH All Active Problems Right ureteral calculus (Acute) Nexplanon removal (Acute) Yeast vaginitis (Acute) Abnormal uterine bleeding (Acute) Contraceptive management (Acute) Well woman exam with routine gynecological exam (Acute) Endometriosis (Chronic) Sprain of right shoulder (Chronic) Chronic joint pain (Chronic) Asthma (Chronic) Obesity (Chronic) Medical History Adhesive capsulitis of right shoulder Depression Migraine Surgical History H/O laparoscopy Hx of cholecystectomy Family History Mother Substance use disorder Father No problems noted. Brother No problems noted. Brother No problems noted. Maternal Grandfather Heart disease Maternal Grandmother Heart disease Paternal Grandfather No problems noted. Paternal Grandmother No problems noted. Social History Smoking/Tobacco Use Status: Never Second Hand Exposure: Yes Smoking risk assessment performed?: Yes Alcohol Intake: current Alcohol Intake frequency: 3 or more drinks per day Alcohol type: wine and hard liquor Substance use type: does not use Details: alcohol t-7 Caregiver/Support person: No Household members: none Housing: apartment Communication Needs: None Do you need help understanding health information?: Never Pets and animals: Yes Pets and animals: dog(s) Sexually active: No Do you think of yourself as: straight/heterosexual Current gender identity: female What is your relationship status?: never How often do you talk on the phone with friends or family?: twice per week How often do you get together with friends or relatives?: once per week How often do you attend mormonism or jehovah's witness services?: decline to answer Do you belong to any clubs or organized social groups?: no Panel score (0-1 are the most socially isolated patients): 1 What type of physical activity do you participate in: yoga Duration: 15-30 minutes/day Frequency: 3-4 times per week Mamie/Pentecostalism: No preference Seatbelt use: sometimes Helmet use: No Drive intox or ride w/intox class a regional drivers: No Do you feel safe at home: Yes Do you feel safe in your relationship?: Yes Additional Social history: lives alone Female Reproductive History Menstrual Age of Menarche: 12 Duration of menses: other control method: progesterone injection History History 0 Para Hx # Term Pregnancies Multiple births Hx # Pregnancies Ectopic pregnancies AB induced Hx Number of Living Children AB spontaneous Meds Allergies and Home Medications Allergies Allergy/AdvReac Type Severity Reaction Status Date / Time tramadol AdvReac Hallucinati Verified 03/03/23 06:39 ons Home Medications Medication Instructions Recorded Confirmed Type albuterol sulfate 90 mcg/actuation 2 inh inhalation Q6H PRN shortness 06/24/22 03/02/23 Rx aerosol inhaler of breath or wheezing #18 grams medroxyprogesterone 150 mg/mL 150 mg IM Q12W #1 mL 07/19/22 03/02/23 Rx intramuscular suspension (Depo-Provera) ondansetron 4 mg disintegrating 4 mg PO Q8H PRN PRN nausea and 11/30/22 03/02/23 Rx tablet vomiting #20 tabs hydrocodone 5 mg-acetaminophen 325 1 - 2 tab PO Q6H PRN pain #30 tabs 02/14/23 03/03/23 Rx mg tablet ibuprofen 200 mg tablet 200 - 800 mg PO PRN PRN 02/14/23 03/02/23 History Exam Const General: cooperative and comfortable Resp Effort & Inspection: normal respiratory effort Auscultation: clear to auscultation bilaterally Cardio Rate: regular rate Rhythm: regular rhythm GI Palpation: no masses Neuro General: patient alert, patient awake and patient oriented x3 Results Last Vital Signs Temp 36.7 C 03/03/23 06:42 Pulse 83 03/03/23 06:42 Resp 16 03/03/23 06:42 BP 118/63 03/03/23 06:42 Pulse Ox 97 03/03/23 06:42 Time Spent Time spent with Patient: <40 minutes Time was spent: other
[2023-03-03] MEDS: Lactated Ringers 1,000 ML 80 ML IV ×2 (06:59→10:35)
--- NOTE | 2023-03-03 07:02 | W.ANESPRE ---
General Info Date of Service Date Performed: 03/03/23 Height: 5 ft Weight: 91.6 kg Body Mass Index (BMI): 39.4 Surgical Procedure: Operation Date: 03/03/23 07:40 Proposed Procedure Side Surgeon p Cystoscopy/Retrograde/ Removal of Stent Right Cruz Pastor MD Meds Allergies and Home Medications Allergies Allergy/AdvReac Type Severity Reaction Status Date / Time tramadol AdvReac Hallucinati Verified 03/03/23 06:39 ons Home Medication Medication Instructions Recorded albuterol sulfate 90 mcg/actuation 2 inh inhalation Q6H PRN shortness 06/24/22 aerosol inhaler of breath or wheezing #18 grams medroxyprogesterone 150 mg/mL 150 mg IM Q12W #1 mL 07/19/22 intramuscular suspension (Depo-Provera) ondansetron 4 mg disintegrating 4 mg PO Q8H PRN PRN nausea and 11/30/22 tablet vomiting #20 tabs hydrocodone 5 mg-acetaminophen 325 1 - 2 tab PO Q6H PRN pain #30 tabs 02/14/23 mg tablet ibuprofen 200 mg tablet 200 - 800 mg PO PRN PRN 02/14/23 Current Visit Medications: Current Medications Generic Name Dose Route Start Last Admin Trade Name Freq PRN Reason Stop Dose Admin Ringer's Solution 1,000 mls @ 80 mls/hr 03/03/23 06:00 03/03/23 06:59 IV 03/03/23 23:59 80 mls/hr INFUSION VALENTINA Administration Cefazolin Sodium/Dextrose 2 gm in 50 mls @ 100 mls/hr 03/03/23 06:00 Ancef Duplex IVPB 03/03/23 23:59 PREOP VALENTINA IV Miscellaneous Supplies 1 each 03/03/23 06:00 Iv Access IV 03/03/23 23:59 DIRECTED VALENTINA Sodium Chloride 0 ml 03/03/23 06:00 Normal Saline Flush 10 Ml Syr IV 03/03/23 23:59 PRN PRN Sodium Chloride 0 ml 03/03/23 06:00 Normal Saline 10 Ml Vial IJ 03/03/23 23:59 DIRECTED PRN Sterile Water 0 ml 03/03/23 06:00 Water,Injection,Sterile 10 Ml Vial IJ 03/03/23 23:59 DIRECTED PRN PFSH Active Problems Active Problems: Problem Status Onset Code Right ureteral calculus N20.1 Nexplanon removal Z30.46 Yeast vaginitis B37.31 Abnormal uterine bleeding N93.9 Contraceptive management Z30.9 Well woman exam with routine gynecological exam Z01.419 Endometriosis N80.9 Sprain of right shoulder S43.401A Chronic joint pain M25.50, G89.29 Asthma J45.909 Obesity E66.9 Medical History Medical History Adhesive capsulitis of right shoulder Depression Migraine Medical History Comments:: pt states she screams and cries when awaking from anesthesia, PONV Surgical History Surgical History H/O laparoscopy Hx of cholecystectomy Tobacco Smoking/Tobacco Use Status: Never Second hand exposure: Yes Alcohol Alcohol Intake: current Alcohol intake frequency: 3 or more drinks per day Alcohol type: wine and hard liquor Substance Use Substance use type: does not use Details: alcohol t-7 Prental History History 0 Para Hx # Term Pregnancies Multiple births Hx # Pregnancies Ectopic pregnancies AB induced Hx Number of Living Children AB spontaneous Vital Signs and Lab Results Vital Signs Most Recent Vital Signs in EMR: Most Recent Vital Signs Temp Pulse Resp BP Pulse Ox 36.7 C 83 16 118/63 97 03/03/23 06:42 03/03/23 06:42 03/03/23 06:42 03/03/23 06:42 03/03/23 06:42 Point of Care Results Point of Care Results: POC- Test(urine) Negative 03/03/23 06:48 Lab Results Blood Type / Crossmatch: No Data to Display Complete Blood Count: No Data to Display Complete Metabolic Panel: No Data to Display Liver Function Panel: No Data to Display Coagulation Panel: No Data to Display Cardiac Panel: No Data to Display Arterial Blood Gas: No Data to Display Venous Blood Gas: No Data to Display Pancreas Panel: No Data to Display Thyroid Panel: No Data to Display Infectious Disease: No Data to Display Blood Cultures: No Data to Display Toxicology Panel: No Data to Display Panel: No Data to Display Imaging and Studies Imaging and Studies Study information below may be from another EMR and interpreted by another provider. Please see original notes in EMR for more complete details. EKG Summary: 11/30/22: Exam: Resting ECG Reason for Exam: dizzy Patient Location: E HR:65 bpm ECG Measurements Heart Rate 65 AXIS SC 143 P 31 QRSd 76 QRS 12 QT 410 T13 QTc 427 Conclusion Sinus rhythm...normal P axis, V-rate 60- 99 Low voltage, precordial leads...precordial leads <1.0mV I have reviewed and I agree with the emergency room physician's ECG interpretation. Anesthesia Assessment and Plan Anesthesia History Personal History: No History of Anesthesia Complications Family History: No Family History of Anesthesia Complications Exercise Tolerance Exercise Tolerance: Metabolic Equivalents>4 Pertinent Negatives Pertinent Negatives: No Symptoms of GERD, No Major Cardiovascular Symptoms or Complaints and No Major Pulmonary Symptoms or Complaints Cardiac & Pulmonary Exam Cardiac Exam: Normal S1/S2 Heart Sounds Pulmonary Exam: Clear Bilateral Breath Sounds Implantable Cardiac Device Does patient have a Pacemaker or an ICD?: No Airway Exam Known Difficult Airway: No Mallampati Class: 1 Mouth Opening: Normal (> 3cm) Thyromental Distance: Greater than 3 cm Neck Range of Motion: Full ROM Neck Circumference: Normal Teeth Condition: Normal Dentition ASA Classification ASA Score: ASA 2 Emergency Case?: No NPO Status NPO Status: NPO Clears >2 hours, Solids >8 hours Status Status: Negative HCG Anesthesia Plan Resuscitation Status: Full Code Anesthesia Technique: General Anesthesia Airway Planned: Natural Airway Monitors Used: Standard Monitors
[2023-03-03] MEDS: ceFAZolin 2 GM/50 ML BAG IVPB (08:09)
[2023-03-03] MEDS: Omnipaque 300 MG/ML 50 ML BTL (08:37)
--- NOTE | 2023-03-03 09:05 | DI.RAD_ITS ---
Exam(s) XR RETROGRADE IN OR EXAM: XR RETROGRADE IN OR CLINICAL HISTORY: surgery. TECHNIQUE: 2D digital imaging was performed. COMPARISON: No exams were available for comparison FINDINGS: Fluoroscopy provided during urologic retrograde study. See procedure report for details. Total fluoroscopy time 36 seconds IMPRESSION: Radiation exposure index/cumulative dose: rodríguez Blanco= 9.2673 mGy DATA REPOSITORY: RADIATION DOSE DELIVERED:
--- NOTE | 2023-03-03 09:09 | W.PM.DSUDISC ---
Date of service: 03/03/23 Time of Service: 09:10 Discharge Plan Disposition Condition: Stable Discharge Details Reason For Visit: cystoscopy Attending Provider: Cruz Pastor Primary Care Provider: Jing Bishop Home Meds and New Rx's Prescriptions: No Action medroxyprogesterone [Depo-Provera] 150 mg/mL suspension 150 mg IM Q12W Qty: 1 3RF hydrocodone-acetaminophen 5-325 mg tablet 1 - 2 tab PO Q6H MDD 8 PRN (Reason: pain) Qty: 30 0RF albuterol sulfate 90 mcg/actuation HFA aerosol inhaler 2 inh inhalation Q6H PRN (Reason: shortness of breath or wheezing) Qty: 18 4RF ibuprofen 200 mg Tablet 200 - 800 mg PO PRN PRN ondansetron 4 mg tablet,disintegrating 4 mg PO Q8H PRN PRN (Reason: nausea and vomiting) Qty: 20 0RF Discharge Instructions Additional Instructions: no need to strain urine followup 6 to 8 weeks for renal US Activity:: Activity as Tolerated Shower/Bathe:: 24 hours Diet:: As Tolerated DS: Diagnosis Discharge Diagnosis (1) Right ureteral calculus: Status: Acute
--- NOTE | 2023-03-03 09:12 | ROE_ITS ---
Date of service: 03/03/23 Time of Service: 09:13 Operative Note Operative Note DATE OF PROCEDURE: 03/03/23 PRE-OP DIAGNOSIS: Right ureteral stone POST-OP DIAGNOSIS: same PROCEDURE: cystoscopy, remove right ureteral stent, right retrograde pyelogram, right flexible ureteroscopy SURGEON: Cruz Pastor ANESTHESIA TYPE: General LMA/ETT Refer to Anesthesia Record ESTIMATED BLOOD LOSS: 0 PATHOLOGY: none sent COMPLICATIONS: None Patient was transported to: PACU Patient's condition: stable Implants: none Indications: This is a 27-year-old woman who initially presented with right flank pain. She was identified as having a small ureteral stone. She was not aware of passing the stone, but she continued to have symptoms. We brought her to the operating room for cystoscopy, retrograde pyelogram and ureteroscopy. At the time of her ureteroscopy, we found narrowing in the distal ureter with no significant large stone burden. We dilated the ureter and left an indwelling stent. She presents now for stent removal and retrograde pyelogram to ensure that the ureter has healed adequately Findings: No urinary extravasation Bullous edema along ureter but no stones Procedure Description: The patient was brought to the operating room on 03/03/2023. She was given preoperative IV antibiotics. After successful induction of general anesthesia, she was placed in the dorsolithotomy position. Her genitalia was prepped and draped. 2% Xylocaine jelly was instilled into the urethra to act as a local anesthetic. A 22 Brazilian rigid cystoscope was passed through the urethra into the bladder. The bladder was inspected using a 30 degree lens. A stent could be seen protruding from the right ureteral orifice. The stent was grasped with alligator forceps and brought to the level of the urethral meatus. A Glidewire was then advanced through the lumen of the stent and the stent was removed leaving the wire in place. A 5 Brazilian access catheter was advanced over the wire and positioned with the end of the stent in the distal ureter. The wire was removed and a retrograde pyelogram was obtained by injecting Omnipaque through the access catheter under fluoroscopic guidance. No extravasation of contrast was seen from the ureter. There did appear to be a radiolucent filling defect in the ureter at the level of previous dilation. The filling defect persisted so we elected to do ureteroscopy for evaluation. I passed the dual-lumen catheter over the wire and positioned a second wire. We chose one of the wires as a working wire and the other as a safety wire. The dual-lumen catheter was removed and the flexible ureteroscope was advanced over the working wire. The ureter was inspected and no stones were found in the ureter. Instead, the filling defect corresponded to some bullous edema on the ureteral mucosa. The ureteroscope was removed. The patient tolerated the procedure well with no complications. She was taken to the day surgery unit in stable condition.
--- NOTE | 2023-03-03 11:36 | W.ANESPOSTOP ---
Postoperative Evaluation Date, Time and Location Date Performed: 03/03/23 Time Performed: 10:55 Patient Location: Day Surgery Unit Vital Signs Most Recent Imported Vital Signs: Most Recent Vital Signs Temp Pulse Resp BP Pulse Ox 36.4 C L 52 L 18 109/63 97 03/03/23 11:20 03/03/23 11:20 03/03/23 11:20 03/03/23 11:20 03/03/23 11:20 Pain Score Most Recent Pain Score: Most Recent Pain Score Pain Level 5 03/03/23 11:20 Assessment Mental Status: Arousable with meaningful communication Airway and Respiratory Function: Patent airway with normal (patient baseline) respiratory exam Cardiovascular Function: Hemodynamically Stable Hydration Status: Adequately Hydrated Nausea & Vomiting: No Nausea or Vomiting Pain: Pain is tolerable per patient Peripheral Nerve Block: Patient did not receive a nerve block
== END 2023-03-03 12:10 | disposition home or self-care (01) ==
PROVIDERS: PCP Nurse Practitioner Family; Visit Provider Urology
PROC: (CPT 74450; principal; 2023-03-03 07:30)
DX: N20.1 Calculus of ureter (principal); E66.9 Obesity, unspecified; J45.909 Unspecified asthma, uncomplicated
CPT/HCPCS: 52005; 81025; 74420; J0690; J1100; J1885; J2001; J2250; J2405; J3010; Q9967

== ENCOUNTER 2023-04-06 21:29 | Outpatient (REF) | payer BC, SELFPAY | END 2023-04-06 21:30 | disposition home or self-care (01) | LOC: LBN 21:29 | PROVIDERS: PCP Nurse Practitioner Family; Visit Provider Obstetrics & Gynecology | DX: N94.9 Unspecified condition associated with female genital organs and menstrual cycle (principal) | CPT/HCPCS: 87480; 87510; 87660 ==

== ENCOUNTER 2023-06-28 06:52 | Emergency (ER) | payer OTHER, SELFPAY ==
[2023-06-28 07:07] VITALS: BP 113/73; PULSE 89; RESP 16; TEMP 37.4; O2SAT 100
--- NOTE | 2023-06-28 08:05 | ED.GENADUL_ITS ---
HPI General Date/Time Provider Initiated Documentation: 06/28/23 07:11 . HPI Narrative: 27 year-old female presents to ED today by POV/ambulating with a chief complaint of lumbar back pain, with right posterior leg radiation with onset yesterday at work at [employer]- had to run to another room. Quality described as low back pain and shooting pain down the posterior-lateral R thigh, no radiation to urinary retention, bowel incontinence, groin numbness, inability to weight- bear. Severity is described as 9/10. Palliating factors include nothing specific attempted yet. Provoking factors include has chronic sciatica, sees PT. Patient not anticoagulated. Related Data Home Medications Medication Instructions Recorded Confirmed albuterol sulfate 90 mcg/actuation 2 inh inhalation Q6H PRN shortness 06/24/22 05/19/23 aerosol inhaler of breath or wheezing #18 grams medroxyprogesterone 150 mg/mL See Rx Instructions .Route 04/07/23 05/19/23 intramuscular suspension .COMPLEX #1 mL cyclobenzaprine 5 mg tablet 5 - 10 mg (1 - 2 x 5 mg) PO TID 05/05/23 05/19/23 PRN muscle spasm #60 tabs ibuprofen 600 mg tablet 600 mg PO TID PRN pain #60 tabs 05/05/23 05/19/23 cyclobenzaprine 10 mg tablet 10 mg PO TID PRN sciatica #30 tabs 06/28/23 diclofenac sodium 1 % topical gel 2 g topical QID #100 grams 06/28/23 ketorolac 10 mg tablet 10 mg PO QID 5 days #20 tabs 06/28/23 lidocaine 5 % topical patch 1 patch topical DAILY sciatica #15 06/28/23 (DermacinRx Lidocan) ea Previous Rx's Medication Instructions Recorded albuterol sulfate 90 mcg/actuation 2 inh inhalation Q6H PRN shortness 06/24/22 aerosol inhaler of breath or wheezing #18 grams medroxyprogesterone 150 mg/mL See Rx Instructions .Route 04/07/23 intramuscular suspension .COMPLEX #1 mL cyclobenzaprine 5 mg tablet 5 - 10 mg (1 - 2 x 5 mg) PO TID 05/05/23 PRN muscle spasm #60 tabs ibuprofen 600 mg tablet 600 mg PO TID PRN pain #60 tabs 05/05/23 cyclobenzaprine 10 mg tablet 10 mg PO TID PRN sciatica #30 tabs 06/28/23 diclofenac sodium 1 % topical gel 2 g topical QID #100 grams 06/28/23 ketorolac 10 mg tablet 10 mg PO QID 5 days #20 tabs 06/28/23 lidocaine 5 % topical patch 1 patch topical DAILY sciatica #15 06/28/23 (DermacinRx Lidocan) ea Allergies Allergy/AdvReac Type Severity Reaction Status Date / Time tramadol AdvReac Hallucinati Verified 05/19/23 13:43 ons General Stated Complaint: Orthopedic SONDRA: 4 Review of Systems All systems reviewed & are unremarkable except as noted in HPI and below Exam Narrative Exam Narrative: GENERAL APPEARANCE: Well-nourished, non-toxic, awake and alert, atraumatic, no acute distress. SKIN: Warm, pink, dry, intact, without rashes/lesions/ulcerations. HEAD: Normocephalic, atraumatic, normal hair distribution for gender/age. EYES: Pupils PERRLA, EOMs intact without nystagmus, normal conjunctiva, no exudates on lids/lashes. ENT: Nares patent, no circumoral cyanosis, no facial swelling NECK: Supple, trachea midline, painless cervical ROM. LUNGS/CHEST: Non-labored respirations, normal A/P diameter, symmetrical expansion, no chest wall deformity HEART (CV/PV): No peripheral edema, no JVD. ABDOMEN: Soft, non-distended, no guarding. MSK: Normal ROM, no swelling/deformity to bilateral UEs or LEs, moving all extremities without weakness, no cyanosis, spine midline without tenderness, normal curvature. Lumbar paraspinal tenderness continuing through glutes in sciatic distribution, NV intact in R LE, strength 5/5, sensation intact, no lumbar vertebral TTP/crepitus/step-offs NEURO: Mental Status AAOx4 - alert to person, place, time, events No facial droop, no forehead involvement. Motor: No focal weakness - strength 5/5 in bilateral UEs and LEs, proximal and distal, symmetric. Sensory: sensation intact to light touch globally. Gait normal: patient ambulated without ataxia into ED room. PSYCH: euthymic, cooperative, pleasant, appropriate speech Course Vital Signs Vital signs: Vital Signs Temperature 37.4 C 06/28/23 07:07 Pulse 89 06/28/23 07:07 Respiratory Rate 16 06/28/23 07:07 Blood Pressure 113/73 06/28/23 07:07 Pulse Oximetry 100 06/28/23 07:07 Temperature 37.4 C 06/28/23 07:07 Pulse 89 06/28/23 07:07 Respiratory Rate 16 06/28/23 07:07 Blood Pressure 113/73 06/28/23 07:07 Pulse Oximetry 100 06/28/23 07:07 Oxygen Delivery Method Room Air 06/28/23 07:07 Oxygen Flow Rate 0 06/28/23 07:07 Medical Decision Making This dictation utilizes [id number] dictation software and may contain unedited grammatical errors. 27 y/o F presents to ED today with a chief complaint of low back pain, and R leg radiation after running at work yesterday. Sees PT for chronic low back issues, currently out of her cyclobenzaprine. Patient denies any urinary retention, bowel incontinence, saddle anesthesia, hx of IVDU. Patients' medical history: low back pain. Family and social history: noncontributory, works at [employer] facility. Pertinent exam findings / vital signs include Lumbar paraspinal tenderness continuing through glutes in sciatic distribution, NV intact in R LE, strength 5/5, sensation intact, no lumbar vertebral TTP/crepitus/step-offs. Differential / pathologies of concern include Sciatica, Lumbar Strain, Hamstring Strain. Diagnostic studies of: -none. Interventions of: -Outpatient Rx for conservative management of sciatica. 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 I counseled her on therapeutic dosing of APAP/NSAIDs/muscle relaxers and counseled on applying gentle heat or ice to the area and gentle massage, recommend following up with her routine physical therapy visits. Provided work note. Findings not consistent with cauda equina, vertebral fracture, neurovascular compromise of the lower extremity. Disposition of Lumbar Back Pain with Radiculopathy Affecting Right Lower Extremity. Patient verbalized understanding of the plan and return to ED criteria and engaged in shared decision making. Medical Records Medical records reviewed: Yes I reviewed the patient's medical records. Quality:[facility] Related Social Needs: No Data to Display PFSH All Active Problems (Updated 06/28/23 @ 08:14 by DARNELL Hobbs) Lumbar back pain with radiculopathy affecting right lower extremity (Acute) Chronic low back pain (Chronic) Vaginismus (Acute) Significant pain with speculum exams. Endometriosis (Chronic) Sprain of right shoulder (Chronic) Chronic joint pain (Chronic) Asthma (Chronic) Obesity (Chronic) Medical History (Updated 06/28/23 @ 08:14 by DARNELL Hobbs) Right ureteral calculus Yeast vaginitis Abnormal uterine bleeding on depo for cycle control Depression Migraine Adhesive capsulitis of right shoulder Surgical History Hx of cholecystectomy H/O laparoscopy Family History Mother Substance use disorder Father No problems noted. Brother No problems noted. Brother No problems noted. Maternal Grandfather Heart disease Maternal Grandmother Heart disease Paternal Grandfather No problems noted. Paternal Grandmother No problems noted. Social History Smoking/Tobacco Use Status: Never Second Hand Exposure: Yes Smoking risk assessment performed?: Yes Alcohol Intake: current Alcohol Intake frequency: 3 or more drinks per day Alcohol type: wine and hard liquor Substance use type: does not use Details: alcohol t-7 Caregiver/Support person: No Household members: none Housing: apartment Communication Needs: None Do you need help understanding health information?: Never Pets and animals: Yes Pets and animals: dog(s) Sexually active: No Do you think of yourself as: straight/heterosexual Current gender identity: female What is your relationship status?: never How often do you talk on the phone with friends or family?: twice per week How often do you get together with friends or relatives?: once per week How often do you attend latter-day or denominational services?: decline to answer Do you belong to any clubs or organized social groups?: no Panel score (0-1 are the most socially isolated patients): 1 What type of physical activity do you participate in: yoga Duration: 15-30 minutes/day Frequency: 3-4 times per week Mamie/Bahai: No preference Seatbelt use: sometimes Helmet use: No Drive intox or ride w/intox laundry route driver: No Do you feel safe at home: Yes Do you feel safe in your relationship?: Yes Additional Social history: lives alone Female Reproductive History Menstrual Age of Menarche: 12 Duration of menses: other control method: progesterone injection History History 0 Para Hx # Term Pregnancies Multiple births Hx # Pregnancies Ectopic pregnancies AB induced Hx Number of Living Children AB spontaneous Discharge Plan Disposition Patient Disposition: Home Discharge Details Clinical Impression: Lumbar back pain with radiculopathy affecting right lower extremity Primary Care Provider: Jing Bishop ED Provider: Ba Muhammad Home Meds and New Rx's Prescriptions: New lidocaine [DermacinRx Lidocan] 5 % adhesive patch,medicated 1 patch topical DAILY Qty: 15 0RF Rx Instructions: leave on most painful area for up to 12 hrs ketorolac 10 mg tablet 10 mg PO QID 5 Days Qty: 20 0RF cyclobenzaprine 10 mg tablet 10 mg PO TID PRN (Reason: sciatica) Qty: 30 0RF diclofenac sodium 1 % gel 2 g topical QID Qty: 100 0RF Rx Instructions: apply to single elbow, wrist or hand; for hand includes palm/fingers/back of hand Continued cyclobenzaprine 5 mg tablet 5 - 10 mg PO TID PRN (Reason: muscle spasm) Qty: 60 0RF ibuprofen 600 mg tablet 600 mg PO TID PRN (Reason: pain) Qty: 60 0RF albuterol sulfate 90 mcg/actuation HFA aerosol inhaler 2 inh inhalation Q6H PRN (Reason: shortness of breath or wheezing) Qty: 18 4RF medroxyprogesterone 150 mg/mL suspension See Rx Instructions .ROUTE .COMPLEX Qty: 1 1RF Dose Instruction: INJECT 150MG INTRAMUSCULARLY EVERY 12 WEEKS Rx Instructions: INJECT 150MG INTRAMUSCULARLY EVERY 12 WEEKS Discharge Instructions Instructions: Cyclobenzaprine (By mouth), Ketorolac (By mouth), Diclofenac (On the skin), Lidocaine Patch (On the skin), Sciatica (ED) Additional Instructions: You were seen in the emergency department for your exacerbation of your chronic low back pain. This is likely sciatica. Please take 1000 mg of Tylenol every 6 hours, for the first 5 days take the prescribed ketorolac [facility] in between Tylenol doses also every 6 hours. Once the ketorolac prescription runs out you can go back to taking ibuprofen instead of ketorolac as they are both anti- inflammatories. Please take the prescribed cyclobenzaprine 3 times a day for muscle relaxation, apply lidocaine patch to your lower back in the area of pain for 12 hours each day. Use the topical diclofenac gel to any areas of pain up to 4 times per day as needed. Follow-up with your physical therapy visits for your back, perform your known lumbar back stretches, perform gentle heat and gentle massage to the area. Please return for any urinary retention, bowel incontinence, numbness in the groin. Stand Alone Forms: Work Release Referrals: Jing Bishop NP [Primary Care Provider] -
[2023-06-28] MEDS: Acetaminophen 500 MG TAB 1000 MG PO (08:27)
[2023-06-28] MEDS: Cyclobenzaprine 10 MG TAB PO (08:28)
[2023-06-28] MEDS: Ketorolac 10 MG TAB PO (08:28)
[2023-06-28] MEDS: Lidocaine 5% Patch 1 PATCH TP (08:28)
== END 2023-06-28 08:37 | disposition home or self-care (01) ==
LOC: ER 08:28
PROVIDERS: Emergency Provider Physician Assistant; PCP Nurse Practitioner Family
DX: M54.16 Radiculopathy, lumbar region (principal)
CPT/HCPCS: 99283

== ENCOUNTER → 2023-07-01 01:02 | Outpatient (CLI) | payer OTHER, SELFPAY ==
--- NOTE | 2023-07-01 13:50 | DI.RAD_ITS ---
Exam(s) XR LUMBAR SPINE COMPLETE EXAM: XR LUMBAR SPINE COMPLETE CLINICAL HISTORY: low back pain, work injury,m54.16. TECHNIQUE: 2D digital imaging was performed of the lumbar spine. Five images were obtained. AP, la teral, right oblique, left oblique and L5-S1 spot views were obtained. COMPARISON: CT CT RENAL COLIC WO from 12/03/2022 FINDINGS: BONES: No fracture or destructive lesion. Vertebral bodies are unremarkable. No facet hypertrophy casa ntified. DISKS: Intervertebral disc spaces are maintained. ALIGNMENT: Lumbar spinal alignment is within normal limits. No spondylolysis or spondylolisthesis. SOFT TISSUE: There are surgical clips in the right abdomen. IMPRESSION: Unremarkable radiographs of the lumbar spine. DATA REPOSITORY: RADIATION DOSE DELIVERED:
== END ==
PROVIDERS: PCP Nurse Practitioner Family; Visit Provider Nurse Practitioner Family
DX: M54.16 Radiculopathy, lumbar region (principal)
CPT/HCPCS: 72110

== ENCOUNTER 2023-08-15 15:13 | Outpatient (REF) | payer BC, SELFPAY | END 2023-08-15 15:14 | disposition home or self-care (01) | LOC: LBN 15:13 | PROVIDERS: PCP Nurse Practitioner Family; Visit Provider Physician Assistant | DX: J02.9 Acute pharyngitis, unspecified (principal) | CPT/HCPCS: 87070 ==

== ENCOUNTER 2023-08-23 22:47 | Emergency (ER) | payer BC, SELFPAY ==
[2023-08-23 22:58] VITALS: BP 140/92; PULSE 93; RESP 16; TEMP 37.1; O2SAT 97
--- NOTE | 2023-08-23 23:15 | DI.RAD_ITS ---
Exam(s) XR SHOULDER RT COMPLETE 2+V EXAM: XR SHOULDER RT COMPLETE 2+V CLINICAL HISTORY: right shoulder pain after stretching. TECHNIQUE: 2D digital imaging was performed. Five views. COMPARISON: MR UPPER EXTREMITIES ADULT from 04/02/2022 FINDINGS: BONES: No acute fracture is present. No bony destructive lesion is seen. JOINTS: No dislocation present. The AC joint is not widened. SOFT TISSUE: Normal. IMPRESSION: Unremarkable radiographs of the right shoulder. DATA REPOSITORY: RADIATION DOSE DELIVERED:
--- NOTE | 2023-08-24 00:58 | DI.VRAD_ITS ---
PROCEDURE INFORMATION: Exam: XR Right Shoulder Exam date and time: 08/24/2023 12:06 AM Age: 28 years old Clinical indication: Right; Patient HX: R shoulder pain after stretching TECHNIQUE: Imaging protocol: Radiologic exam of the right shoulder. Views: 2 or more views. COMPARISON: CR XR SHOULDER RT COMPLETE 2+V 01/12/2022 5:55 PM FINDINGS: Bones/joints: Humeral head and neck are unremarkable. No evidence of scapular fracture. No evidence of clavicular fracture. No evidence of rib fracture. No fracture or dislocation. Soft tissues: Normal. IMPRESSION: No fracture or dislocation. Dictated and Authenticated by: Alejandra Silverio MD. Ordering:LIOR Cosme MD
--- NOTE | 2023-08-24 00:59 | W.ED.GENAD ---
Discharge Plan Disposition Patient Disposition: Home Condition: Good Discharge Details Clinical Impression: Sprain of shoulder, right Primary Care Provider: Jing Bishop ED Provider: Ba Alvarez Home Meds and New Rx's Prescriptions: No Action benzonatate 100 mg capsule 100 mg PO TID PRN (Reason: cough) Qty: 14 0RF albuterol sulfate [Proventil HFA] 90 mcg/actuation HFA aerosol inhaler 2 puff inhalation Q6H PRN (Reason: shortness of breath or wheezing) Qty: 8.5 0RF albuterol sulfate 90 mcg/actuation HFA aerosol inhaler 2 inh inhalation Q6H PRN (Reason: shortness of breath or wheezing) Qty: 18 4RF medroxyprogesterone 150 mg/mL suspension See Rx Instructions .ROUTE .COMPLEX Qty: 1 1RF Dose Instruction: INJECT 150MG INTRAMUSCULARLY EVERY 12 WEEKS Rx Instructions: INJECT 150MG INTRAMUSCULARLY EVERY 12 WEEKS lidocaine [DermacinRx Lidocan] 5 % adhesive patch,medicated 1 patch topical DAILY Qty: 15 0RF Rx Instructions: leave on most painful area for up to 12 hrs cyclobenzaprine 10 mg tablet 10 mg PO TID PRN (Reason: sciatica) Qty: 30 0RF diclofenac sodium 1 % gel 2 g topical QID Qty: 100 0RF Rx Instructions: apply to single elbow, wrist or hand; for hand includes palm/fingers/back of hand Discharge Instructions Instructions: Shoulder Sprain (ED) Additional Instructions: At this time the x-ray is negative for any evidence of fracture. As we discussed together I am concerned that there is irritation and mild damage to the ligaments and bursa around the shoulder. Please take Tylenol and Motrin for improvement of the pain. Please use the sling only as necessary for comfort. Please make sure to move your shoulder frequently to maintain good range of motion and to prevent frozen shoulder syndrome. We have placed a referral for physical therapy. They will contact you for an appointment time. It may take up to 6 weeks for your symptoms to improve. If you have persistent pain even with physical therapy and NSAID therapy, you may require further evaluation by an donation specialist and potential additional imaging including MRI. If you notice any worsening of your symptoms, or any new symptoms such as vomiting, diarrhea, fever, chills, shortness of breath, chest pain, numbness, weakness, or fainting , please return immediately to the emergency department for reevaluation. Please follow up with your primary care provider as soon as possible for reassessment and reevaluation. As always, it was a pleasure participating in your medical care today. Stand Alone Forms: Physical Therapy Referral, Work Release Referrals: Jing Bishop NP [Primary Care Provider] - [facility] General Date/Time Provider Initiated Documentation: 08/23/23 22:49. HPI Narrative: 28-year-old female with a past medical history of previous right-sided shoulder injury who is right-hand dominant, presents today for right shoulder pain. At around 10 PM she was doing normal stretch where she lifted her arms up and rotated them both around, she heard a mild pop and developed burning in the right shoulder. Over the next hour the pain became worse, and she developed pain in the shoulder, anteriorly and posteriorly. Worse with movement and almost all directions. She denies numbness or tingling. No trauma. No recent excessive weight lifting, no other known recent injury. She has not taken any Tylenol or Motrin. 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 No other complaints at this time. Pain is improved with rest, made worse with movement. Related Data Home Medications Medication Instructions Recorded Confirmed albuterol sulfate 90 mcg/actuation 2 inh inhalation Q6H PRN shortness 06/24/22 07/07/23 aerosol inhaler of breath or wheezing #18 grams medroxyprogesterone 150 mg/mL See Rx Instructions .Route 04/07/23 07/07/23 intramuscular suspension .COMPLEX #1 mL cyclobenzaprine 10 mg tablet 10 mg PO TID PRN sciatica #30 tabs 06/28/23 07/07/23 diclofenac sodium 1 % topical gel 2 g topical QID #100 grams 06/28/23 07/07/23 lidocaine 5 % topical patch 1 patch topical DAILY sciatica #15 06/28/23 07/07/23 (DermacinRx Lidocan) ea albuterol sulfate 90 mcg/actuation 2 puff inhalation Q6H PRN 08/15/23 08/15/23 aerosol inhaler (Proventil HFA) shortness of breath or wheezing #8.5 grams benzonatate 100 mg capsule 100 mg PO TID PRN cough #14 caps 08/15/23 08/15/23 Previous Rx's Medication Instructions Recorded albuterol sulfate 90 mcg/actuation 2 inh inhalation Q6H PRN shortness 06/24/22 aerosol inhaler of breath or wheezing #18 grams medroxyprogesterone 150 mg/mL See Rx Instructions .Route 04/07/23 intramuscular suspension .COMPLEX #1 mL cyclobenzaprine 10 mg tablet 10 mg PO TID PRN sciatica #30 tabs 06/28/23 diclofenac sodium 1 % topical gel 2 g topical QID #100 grams 06/28/23 lidocaine 5 % topical patch 1 patch topical DAILY sciatica #15 06/28/23 (DermacinRx Lidocan) ea albuterol sulfate 90 mcg/actuation 2 puff inhalation Q6H PRN 08/15/23 aerosol inhaler (Proventil HFA) shortness of breath or wheezing #8.5 grams benzonatate 100 mg capsule 100 mg PO TID PRN cough #14 caps 08/15/23 Allergies Allergy/AdvReac Type Severity Reaction Status Date / Time tramadol AdvReac Hallucinati Verified 08/15/23 09:02 ons General Stated Complaint: Orthopedic SONDRA: 4 Review of Systems All systems reviewed & are unremarkable except as noted in HPI and below Exam Narrative Exam Narrative: 1.Const: Well-nourished, Well-developed, appearing stated age 2.Eyes: PERRL, no conjunctival injection, and symmetrical lids. 3.ENT: Atraumatic external nose and ears. Moist MM. Neck: Symmetric, trachea midline, No thyromegaly. 4.CVS: +S1/S2, No murmurs or gallops. Peripheral pulses 2+ and equal in all extremities. Brisk capillary refill in all extremities. 5.RESP: Unlabored respiratory effort. Clear to auscultation bilaterally. No wheezes rales or rhonchi 6.GI: Soft, Nontender/Nondistended, No hepatosplenomegaly. No guarding or rebound. 7.MSK: Right shoulder demonstrates mild tenderness over the anterior aspect of the shoulder at the proximal humerus, at the AC joint, then mild muscular tenderness throughout the deltoid, pectoralis muscle and supraspinatus musculature of the scapula. Patient has the most pain with abduction of the shoulder, and anterior and posterior movement. Minimal pain with internal and external rotation. Minimal pain withadduction. Patient demonstrates good movement of the elbow, no elbow tenderness. Good information systems professor strength and normal sensation in the hand. Radial pulse +2 bilaterally. Brisk capillary refill. 8.Skin: Warm, Dry. No rashes or lesions. 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 Sensation grossly intact, no focal neurologic deficits. 10.Psych: (AAO) x3. Appropriate mood and affect Course Vital Signs Vital signs: Vital Signs Temperature 37.1 C 08/23/23 22:58 Pulse 93 H 08/23/23 22:58 Respiratory Rate 16 08/23/23 22:58 Blood Pressure 140/92 H 08/23/23 22:58 Pulse Oximetry 97 08/23/23 22:58 Temperature 37.1 C 08/23/23 22:58 Temperature Source Oral 08/23/23 22:58 Pulse 93 H 08/23/23 22:58 Respiratory Rate 16 08/23/23 22:58 Blood Pressure 140/92 H 08/23/23 22:58 Pulse Oximetry 97 08/23/23 22:58 Medical Decision Making 28-year-old female with a past medical history of previous right-sided shoulder injury who is right-hand dominant, presents today for right shoulder pain. At around 10 PM she was doing normal stretch where she lifted her arms up and rotated them both around, she heard a mild pop and developed burning in the right shoulder. Over the next hour the pain became worse, and she developed pain in the shoulder, anteriorly and posteriorly. Worse with movement and almost all directions. She denies numbness or tingling. No trauma. No recent excessive weight lifting, no other known recent injury. She has not taken any Tylenol or Motrin. 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 No other complaints at this time. Pain is improved with rest, made worse with movement. Exam demonstrates mild tenderness over the anterior aspect of the shoulder at the proximal humerus, at the AC joint, then mild muscular tenderness throughout the deltoid, pectoralis muscle and supraspinatus musculature of the scapula. Patient has the most pain with abduction of the shoulder, and anterior and posterior movement. Minimal pain with internal and external rotation. Minimal pain withadduction. Patient demonstrates good movement of the elbow, no elbow tenderness. Good information systems professor strength and normal sensation in the hand. Radial pulse +2 bilaterally. Brisk capillary refill. Symptoms appear inconsistent with dislocation. Suspect bursal irritation and potential labrum injury, potentially exacerbation of old injury. Highest differential is for ligamentous or joint related etiology. Doubt osseous fracture. X-ray was ordered and shows no evidence of acute process. Will recommend NSAID therapy, will apply Lidoderm patch here. Will give sling for comfort only, recommend continued movement to avoid frozen shoulder syndrome. Will place referral for physical therapy. If patient does not have improvement after 2 weeks of physical therapy NSAID therapy ice and rest, she may need further evaluation by donation specialist. Recommend close follow-up with PCP. Discussed red flags which to return. I have extensively reviewed the treatment plan and discharge instructions with the patient. I have addressed all patient concerns at this time. The patient was made aware of what symptoms to monitor for that would warrant a return to the emergency department. Discussed the plan with the patient, they demonstrate verbal understanding and agreement with our assessment and plan at this time. The documentation in this chart was dictated using [employer] dictation software. Please excuse any dictation errors. FINDINGS: Bones/joints: Humeral head and neck are unremarkable. No evidence of scapular fracture. No evidence of clavicular fracture. No evidence of rib fracture. No fracture or dislocation. Soft tissues: Normal. IMPRESSION: No fracture or dislocation. Thank you for allowing us to participate in the care of your patient. Dictated and Authenticated by: Alejandra Silverio MD 08/24/2023 12:58 AM Eastern Time ([place] & [place]) Quality:SDOH Health Related Social Needs: No Data to Display PFSH All Active Problems Sprain of shoulder, right (Acute) On Depo-Provera for contraception (Acute) Chronic low back pain (Chronic) Vaginismus (Acute) Significant pain with speculum exams. Endometriosis (Chronic) Sprain of right shoulder (Chronic) Chronic joint pain (Chronic) Asthma (Chronic) Obesity (Chronic) Medical History Right ureteral calculus Yeast vaginitis Abnormal uterine bleeding on depo for cycle control Depression Migraine Adhesive capsulitis of right shoulder Surgical History Hx of cholecystectomy H/O laparoscopy Family History Mother Substance use disorder Father No problems noted. Brother No problems noted. Brother No problems noted. Maternal Grandfather Heart disease Maternal Grandmother Heart disease Paternal Grandfather No problems noted. Paternal Grandmother No problems noted. Social History Smoking/Tobacco Use Status: Never Second Hand Exposure: Yes Smoking risk assessment performed?: Yes Alcohol Intake: current Alcohol Intake frequency: 3 or more drinks per day Alcohol type: wine and hard liquor Substance use type: does not use Details: alcohol t-7 Caregiver/Support person: No Household members: none Housing: apartment Communication Needs: None Do you need help understanding health information?: Never Pets and animals: Yes Pets and animals: dog(s) Sexually active: No Do you think of yourself as: straight/heterosexual Current gender identity: female What is your relationship status?: never How often do you talk on the phone with friends or family?: twice per week How often do you get together with friends or relatives?: once per week How often do you attend tenriism or religion services?: decline to answer Do you belong to any clubs or organized social groups?: no Panel score (0-1 are the most socially isolated patients): 1 What type of physical activity do you participate in: yoga Duration: 15-30 minutes/day Frequency: 3-4 times per week Mamie/Yarsani: No preference Seatbelt use: sometimes Helmet use: No Drive intox or ride w/intox 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
[2023-08-24] MEDS: Acetaminophen 500 MG TAB 1000 MG PO (01:16)
[2023-08-24] MEDS: Lidocaine 5% Patch 1 PATCH TP (01:16)
[2023-08-24] MEDS: Ibuprofen 800 MG TAB PO (01:16)
== END 2023-08-24 01:17 | disposition home or self-care (01) ==
PROVIDERS: Emergency Provider Student in an Organized Health Care Education/Training Program; PCP Nurse Practitioner Family
DX: S43.401A Unspecified sprain of right shoulder joint, initial encounter (principal); X50.9XXA Other and unspecified overexertion or strenuous movements or postures, initial encounter; Y93.89 Activity, other specified; Y92.013 Bedroom of single-family (private) house as the place of occurrence of the external cause
CPT/HCPCS: 99283; 73030

== ENCOUNTER 2023-11-21 15:13 | Outpatient (REF) | payer BC, SELFPAY ==
[2023-11-21 21:41] LABS: Bilirubin Negative (Negative); Blood Negative (Negative); Clarity Clear (Clear); Glucose Negative (Negative); Ketones Negative (Negative); Leukocyte Esterase Negative (Negative); Nitrite Negative (Negative); Specific Gravity >= 1.030 (1.005-1.025); Urobilinogen 0.2 mg/dL (Up to 0.2); pH 5.5 (5-8)
== END 2023-11-21 15:14 | disposition home or self-care (01) ==
LOC: LBN 15:13
PROVIDERS: PCP Nurse Practitioner Family; Visit Provider Nurse Practitioner Family
DX: R11.2 Nausea with vomiting, unspecified (principal); R82.998 Other abnormal findings in urine
CPT/HCPCS: 81003

== ENCOUNTER 2023-11-22 16:11 | Outpatient (CLI) | payer BC, SELFPAY ==
[2023-11-22 12:43] LABS: Abs Immature Grans 0.03 10^3/uL (0.0-0.06); Absolute Eosinophil Count 0.18 10^3/uL (0.0-0.7); Absolute Lymphocyte Count 2.47 10^3/uL (1.2-3.4); Absolute Monocyte Count 0.54 10^3/uL (0.1-0.8); Basophils % 0.5 %; Eosinophils % 1.6 %; HCT 42.6 % (36.0-46.0); HGB 14.4 g/dL (11.2-15.7); Immature Grans % 0.3 %; Lymphocytes % 22.5 %; MCH 28.5 pg (27.0-33.0); MCHC 33.8 % (32.0-36.0); MCV 84 fL (80-95); MPV 9.9 fL (8.0-11.0); Monocytes % 4.9 %; Neutrophils % 70.2 %; Platelet Count 301 10^3/uL (130-400); RBC 5.05 10^6/uL (3.93-5.22); RDW 12.1 % (11.7-14.6); RDW-SD 36.7 fL; WBC 10.98 10^3/uL (4.4-10.8)
[2023-11-22 12:51] LABS: ESR 15 mm/hr (0-20)
[2023-11-22 12:52] LABS: Absolute Basophil Count 0.05 10^3/uL (0.0-0.2); Absolute Neutrophil Count 7.71 10^3/uL (1.2-6.7)
[2023-11-22 13:16] LABS: ALT 40 U/L (14-59); AST 18 U/L (15-37); Albumin 3.6 g/dL (3.4-5.0); Alkaline Phosphatase 152 U/L (46-116); Anion Gap 11.2 mmol/L (3-11); BUN 17 mg/dL (7-18); Bilirubin, Total 0.3 mg/dL (0.2-1.0); C-Reactive Protein 1.19 mg/dL (<or=0.5); CO2 23.8 mmol/L (21.0-32.0); Calcium 9.1 mg/dL (8.5-10.1); Chloride 107 mmol/L (98-107); Glucose 101 mg/dL (74-106); Potassium 3.9 mmol/L (3.5-5.1); Sodium 142 mmol/L (136-145); Total Protein 7.5 g/dL (6.4-8.2)
[2023-11-23 10:05] LABS: Lab Add On Test DONE
[2023-11-23 17:36] LABS: Rheumatoid Factor 44.7 IU/mL (<12.0)
[2023-11-24 08:57] LABS: Cyclic Citrullinated Peptide <2.5 U/mL (<5.0)
[2023-11-24 09:11] LABS: HBs Antibody, Quant <3.1 mIU/mL (See Note); Hep B Surface Ab Negative (See Note); Hepatitis B Core Antibody Negative (Negative); Hepatitis B Surface Antigen Negative (Negative)
[2023-11-24 09:22] LABS: Hepatitis C Ab w Rflx HCV PCR Negative (Negative)
[2023-11-24 09:41] LABS: HIV-1/2 Ag & Ab Screen Negative (Negative)
== END 2023-11-22 16:12 | disposition home or self-care (01) ==
LOC: LBO 16:12
PROVIDERS: PCP Nurse Practitioner Family; Visit Provider Nurse Practitioner Family
DX: Z11.59 Encounter for screening for other viral diseases (principal); R11.2 Nausea with vomiting, unspecified; Z11.4 Encounter for screening for human immunodeficiency virus [HIV]; G89.29 Other chronic pain
CPT/HCPCS: 36415; 80053; 85652; 86200; 86704; 86706; 86803; 87340; 87389; 85025; 86140; 86431

== ENCOUNTER 2023-12-02 01:48 | Outpatient (CLI) | payer BC, SELFPAY ==
[2023-12-02] MEDS: Levalbuterol HFA 15 GM INH 4 PUFF IH (16:33)
[2023-12-02] MEDS: Inhaler, Assist Device 1 EACH MC (16:33)
--- NOTE | 2023-12-13 09:22 | W.PFT ---
Date of service: 12/02/23 Time of Service: 15:20 Pulmonary Function Test Result Requesting Provider Jing Bishop Indications: Asthma Interpretation Spirometry: Normal Lung Volumes: Normal Diffusion Capacity: Normal Impression Normal spirometry, lung volumes and diffusion. Normal flow volume loop. Clinical Correlation therefore is recommended.
== END 2023-12-02 01:49 | disposition home or self-care (01) ==
LOC: RT 01:49
PROVIDERS: PCP Nurse Practitioner Family; Visit Provider Nurse Practitioner Family
DX: J45.909 Unspecified asthma, uncomplicated (principal)
CPT/HCPCS: 00123; 94060; 94726; 94729

== ENCOUNTER 2024-01-15 13:16 | Emergency (ER) | payer BC, SELFPAY ==
[2024-01-15 13:21] VITALS: BP 111/86; PULSE 83; RESP 16; TEMP 36.3; O2SAT 97
--- NOTE | 2024-01-15 13:30 | DI.CT_ITS ---
Exam(s) CT RENAL COLIC WO EXAM: CT RENAL COLIC WO CLINICAL HISTORY: flank pain. TECHNIQUE: Imaging Protocol: Axial computed tomography images with coronal and sagittal reformatted images were created and reviewed CONTRAST MATERIAL: Intravenous: none Oral: None COMPARISON: CT CT RENAL COLIC WO from 12/03/2022 FINDINGS: VISUALIZED LUNG BASES: No nodules nor pleural effusions evident. ABDOMEN: There is no ascites. LIVER: There are no obvious focal hepatic lesions evident of this noninfused study. GALLBLADDER/BILIARY: Gallbladder is again noted to be surgically absent. CBD is not dilated. PANCREAS: No evidence of pancreatic mass nor dilatation of the pancreatic duct. SPLEEN: Spleen is not enlarged. No obvious intrasplenic lesions. ADRENALS: There are no significant adrenal masses. KIDNEYS:There is a 2-3 millimeter calculus in lower pole calyx of the left kidney again noted. A pun ctate calculus is noted at the midpole level. No other significant focal left kidney findings and no hydronephrosis nor hydroureter on the opposite-right side there are no intrarenal calculi nor hydron ephrosis. On 1 image there is a subtle suggestion of a tiny 1 mm calculus in the upper right ureter (series 3/image 65). The right ureter is not dilated above nor below this possible subtle finding. There also no radiopaque calculi seen at the right ureterovesical junction nor within the nondistende d urinary bladder. No solid renal masses. No cysts evident in the kidneys.. ABDOMINAL AORTA: Abdominal aorta is not enlarged. LYMPH NODES: There is no retroperitoneal nor paraaortic adenopathy. ABDOMINAL WALL: No evidence of significant anterior abdominal wall nor inguinal hernia. GI: There is no evidence of bowel obstruction, free air, nor abscess. PELVIS: LYMPH NODES: There is no intrapelvic nor inguinal adenopathy. GI: No evidence of acute appendicitis.There is no significant sigmoid diverticular disease evident. URINARY BLADDER: No calculi nor obvious masses evident REPRODUCTIVE: Uterus and adnexal regions unremarkable. No extraovarian adnexal masses. No free flui d in the pelvis. OSSEOUS: No fractures. No osseous lesions. Sacroiliac joints unremarkable. No disc space narrowing . No listhesis. IMPRESSION: 1. When compared to the prior CT scan of 12/03/2022 there is presently no hydronephrosis nor hydroure ter. However, there is subtle evidence of a tiny 1 millimeter calculus in the uppermost right ureter just beyond the renal pelvis, nonobstructive. (Series 3/image 65). 2. There is a 2-3 millimeter nonobstructive calculus in lower pole of the opposite-left kidney. 3. There are no radiopaque calculi seen in the nondistended urinary bladder. Previous cholecystectomy. No evidence of bowel obstruction, free air, nor abscess. Report called by myself to ER physician 01/15/2024 at 3:05 p.m. RADIATION DOSE DELIVERED: Total DLP DATA REPOSITORY: All CT scans at this facility are submitted to the National Radiology Data Registry (NRDR) Dose Index Registry (DIR) with the [employer] (ACR). RADIATION OPTIMIZATION: All CT scans at this facility use at least one of these dose optimization te chniques: automated exposure control; mA and/or kV adjustment per patient size (includes targeted exa ms where dose is matched to clinical indication); or iterative reconstruction.
[2024-01-15 13:35] VITALS: O2SAT 98
--- NOTE | 2024-01-15 13:49 | ED.GENADUL_ITS ---
Discharge Plan Disposition Patient Disposition: Home Condition: Stable Discharge Details Clinical Impression: Vomiting, Acute flank pain, Renal colic Primary Care Provider: Jing Bishop ED Provider: Gregg Strickland Home Meds and New Rx's Prescriptions: New ondansetron 4 mg tablet,disintegrating 4 mg PO Q8H PRNQty: 20 0RF tamsulosin [Flomax] 0.4 mg capsule 0.4 mg PO DAILY Qty: 30 0RF No Action ondansetron 4 mg tablet,disintegrating 4 mg PO Q6H PRN (Reason: nausea and vomiting) Qty: 7 0RF albuterol sulfate 90 mcg/actuation HFA aerosol inhaler 2 inh inhalation Q6H PRN (Reason: shortness of breath or wheezing) Qty: 18 4RF omeprazole 20 mg capsule,delayed release(DR/EC) 20 mg PO DAILY Qty: 90 1RF medroxyprogesterone 150 mg/mL suspension See Rx Instructions .ROUTE .COMPLEX Qty: 1 3RF Dose Instruction: INJECT 150MG INTRAMUSCULARLY EVERY 12 WEEKS Rx Instructions: INJECT 150MG INTRAMUSCULARLY EVERY 12 WEEKS diclofenac sodium 75 mg tablet,delayed release (DR/EC) 75 mg PO BID Patient Comments: TAKE ONE TABLET BY MOUTH TWICE A DAY Discharge Instructions Instructions: Flank Pain ED Additional Instructions: * Take Zofran as needed for nausea * Treat pain with Motrin or Tylenol * start Flomax daily to help with urinary spasm and strain urine * Return to the emergency department if you are not tolerating anything by mouth HPI General Date/Time Provider Initiated Documentation: 01/15/24 13:22 . Limitations to Documentation: no limitations . Information obtained by: patient . HPI Narrative: 28-year-old female with past medical history of endometriosis, obesity, renal stone presents for evaluation of flank pain and vomiting. She reports that her vomiting started last night. She had several episodes. Not associated with fever abdominal pain or diarrhea. She reports that this morning she started having lower back pain, worse on the right. This pain radiates around to the front. She states that it is located in the same area as her prior kidney stone. She reports that she did have to have surgical procedure to remove the kidney stones about 1 year ago. She denies any burning or discomfort with urination. She does report increased frequency. Denies any hematuria. No medications tried prior to arrival. Related Data Home Medications ?Medication ?Instructions ?Recorded ?Confirmed albuterol sulfate 90 mcg/actuation 2 inh inhalation Q6H PRN shortness 06/24/22 01/15/24 aerosol inhaler of breath or wheezing #18 grams ondansetron 4 mg disintegrating 4 mg PO Q6H PRN nausea and 09/28/23 01/15/24 tablet vomiting #7 tabs medroxyprogesterone 150 mg/mL See Rx Instructions .Route 11/21/23 01/15/24 intramuscular suspension .COMPLEX #1 mL omeprazole 20 mg capsule,delayed 20 mg PO DAILY #90 caps 12/23/23 01/15/24 release diclofenac sodium 75 mg 75 mg PO BID 01/15/24 01/15/24 tablet,delayed release ondansetron 4 mg disintegrating 4 mg PO Q8H PRN #20 tabs 01/15/24 tablet tamsulosin 0.4 mg capsule (Flomax) 0.4 mg PO DAILY #30 caps 01/15/24 Previous Rx's ?Medication ?Instructions ?Recorded albuterol sulfate 90 mcg/actuation 2 inh inhalation Q6H PRN shortness 06/24/22 aerosol inhaler of breath or wheezing #18 grams ondansetron 4 mg disintegrating 4 mg PO Q6H PRN nausea and 09/28/23 tablet vomiting #7 tabs medroxyprogesterone 150 mg/mL See Rx Instructions .Route 11/21/23 intramuscular suspension .COMPLEX #1 mL omeprazole 20 mg capsule,delayed 20 mg PO DAILY #90 caps 12/23/23 release ondansetron 4 mg disintegrating 4 mg PO Q8H PRN #20 tabs 01/15/24 tablet tamsulosin 0.4 mg capsule (Flomax) 0.4 mg PO DAILY #30 caps 01/15/24 Allergies Allergy/AdvReac Type Severity Reaction Status Date / Time naproxen AdvReac Nausea Verified 01/15/24 13:27 tramadol AdvReac Hallucinati Verified 01/15/24 13:27 ons General Stated Complaint: Nausea/Vomit/Diar SONDRA: 3 Exam Narrative Exam Narrative: Review of Systems: All systems reviewed & are unremarkable except as noted in HPI and below Well-developed,mild distress NCAT PERRL, normal conjunctiva RRR Unlabored respiratory effort, ctab Nondistended abdomen , soft non tender +CVAT Extremities w/o deformity, no cyanosis, no edema No rashes or lesions. no focal neurologic deficits Appropriate mood and affect Course Vital Signs Vital signs: Vital Signs Temperature 36.3 C L 01/15/24 13:21 Pulse 83 01/15/24 13:21 Respiratory Rate 16 01/15/24 13:21 Blood Pressure 111/86 01/15/24 13:21 Pulse Oximetry 97 01/15/24 13:21 Temperature 36.3 C L 01/15/24 13:21 Temperature Source Temporal Artery Scan 01/15/24 13:21 Pulse 83 01/15/24 13:21 Respiratory Rate 16 01/15/24 13:21 Respiratory Effort Normal, Non-Labored 01/15/24 13:35 Blood Pressure 111/86 01/15/24 13:21 Blood Pressure Position Sitting 01/15/24 13:21 Pulse Oximetry 98 01/15/24 13:35 Oxygen Delivery Method Room Air 01/15/24 13:35 Oxygen Flow Rate 0 01/15/24 13:21 Pain Level 8 01/15/24 13:35 Comment vomiting in triage and dry heaving in room 01/15/24 13:35 Medical Decision Making Emergent evaluation of flank pain and vomiting. Initial differential includes viral illness, urinary tract infection, renal stone. Patient reports symptoms and presentation are consistent with prior episode of kidney stones. Plan for IV, fluid resuscitation, antiemetic and pain medication. Will check renal function as well as urinalysis to evaluate for infection. Will get CT imaging to evaluate for presence of stone. 1600 Labs reviewed, no elevated white blood cell count, normal renal function. Urinalysis without any signs of blood or infection. I discussed the CT scan with the radiologist there does appear to be a submillimeter stone on the right. This could be what is causing her symptoms. After treatment in the emergency department, she is no longer having any symptoms. Will discharge with Zofran, take-home doses given. Additional prescription sent to the pharmacy. Flomax also prescribed. Recommend straining urine and increasing fluid intake. Return precautions advised, I do not feel she needs urology follow-up given the size of this stone, and feels she could be likely managed with her PCP or return visits to the emergency department as needed. Medical Records Medical records reviewed: Yes I reviewed the patient's medical records. Lab Data Lab results reviewed: Yes I reviewed the patient's lab results. Quality:SDOH Health Related Social Needs: No Data to Display PFSH All Active Problems (Updated 01/15/24 @ 15:47 by Gregg Strickland MD) Renal colic (Acute) Acute flank pain (Acute) Vomiting (Acute) Elevated rheumatoid factor (Acute) [facility] Rheumatology consulted 12/2023, r/o rheumatoid arthritis Endometriosis (Chronic) Abnormal uterine bleeding (Chronic) on depo for cycle control Asthma (Chronic) Class 3 severe obesity with body mass index (BMI) of 40.0 to 44.9 in adult (Chronic) GERD (gastroesophageal reflux disease) (Chronic) Nausea and vomiting (Chronic) Vaginismus (Chronic) Significant pain with speculum exams. On Depo-Provera for contraception (Chronic) Chronic low back pain (Chronic) Chronic joint pain (Chronic) Medical History Right ureteral calculus Depression Migraine Surgical History Hx of cholecystectomy H/O laparoscopy Family History Mother Substance use disorder Father No problems noted. Brother No problems noted. Brother No problems noted. Maternal Grandfather Heart disease Maternal Grandmother Heart disease Paternal Grandfather No problems noted. Paternal Grandmother No problems noted. Social History Smoking/Tobacco Use Status: Never Second Hand Exposure: Yes Smoking risk assessment performed?: Yes Alcohol Intake: current Alcohol Intake frequency: 3 or more drinks per day Alcohol type: wine and hard liquor Substance use type: does not use Details: alcohol t-7 Caregiver/Support person: No Household members: none Housing: apartment Communication Needs: None Do you need help understanding health information?: Never Pets and animals: Yes Pets and animals: dog(s) Sexually active: No Do you think of yourself as: straight/heterosexual Current gender identity: female What is your relationship status?: never How often do you talk on the phone with friends or family?: twice per week How often do you get together with friends or relatives?: once per week How often do you attend uatsdin or mormonism services?: decline to answer Do you belong to any clubs or organized social groups?: no Panel score (0-1 are the most socially isolated patients): 1 What type of physical activity do you participate in: yoga Duration: 15-30 minutes/day Frequency: 3-4 times per week Mamie/Congregational: No preference Seatbelt use: sometimes Helmet use: No Drive 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
[2024-01-15 14:11] LABS: Bilirubin Negative (Negative); Blood Negative (Negative); Clarity Clear (Clear); Glucose Negative (Negative); Ketones Negative (Negative); Leukocyte Esterase Negative (Negative); Nitrite Negative (Negative); Specific Gravity 1.025 (1.005-1.025); Urobilinogen 0.2 mg/dL (Up to 0.2)
[2024-01-15] MEDS: Ketorolac 30 MG/ML VIAL IVP (14:19)
[2024-01-15] MEDS: Ondansetron 4 MG/2 ML VIAL IVP (14:19)
[2024-01-15 14:22] LABS: Abs Immature Grans 0.02 10^3/uL (0.0-0.06); Absolute Basophil Count 0.06 10^3/uL (0.0-0.2); Absolute Eosinophil Count 0.22 10^3/uL (0.0-0.7); Absolute Lymphocyte Count 2.65 10^3/uL (1.2-3.4); Absolute Monocyte Count 0.57 10^3/uL (0.1-0.8); Absolute Neutrophil Count 6.56 10^3/uL (1.2-6.7); Basophils % 0.6 %; Eosinophils % 2.2 %; Immature Grans % 0.2 %; Lymphocytes % 26.3 %; MCHC 33.3 % (32.0-36.0); MCV 84 fL (80-95); MPV 9.8 fL (8.0-11.0); Monocytes % 5.7 %; Platelet Count 298 10^3/uL (130-400); RDW 11.9 % (11.7-14.6); RDW-SD 36.1 fL; WBC 10.08 10^3/uL (4.4-10.8)
[2024-01-15 14:33] LABS: Anion Gap 10.3 mmol/L (3-11); BUN 14 mg/dL (7-18); CO2 23.7 mmol/L (21.0-32.0); CREATININE 0.9 mg/dL (0.55-1.02); Calcium 9.3 mg/dL (8.5-10.1); Chloride 107 mmol/L (98-107); Glucose 85 mg/dL (74-106); Potassium 4.3 mmol/L (3.5-5.1); Sodium 141 mmol/L (136-145)
[2024-01-15] MEDS: Ondansetron O.D.T. 4 MG TABEF, 3 TABS/BTL PO (15:52)
[2024-01-15 15:58] VITALS: PULSE 74; RESP 16; TEMP 36.3; O2SAT 97
== END 2024-01-15 15:49 | disposition home or self-care (01) ==
PROVIDERS: Emergency Provider Emergency Medicine; PCP Nurse Practitioner Family
DX: R10.9 Unspecified abdominal pain (principal); R11.2 Nausea with vomiting, unspecified; N20.0 Calculus of kidney; Z87.442 Personal history of urinary calculi
CPT/HCPCS: 36415; 80048; 81025; 96374; 96375; 99285; 74176; 81003; 85025; 99284; J1885; J2405

== ENCOUNTER 2024-03-31 06:24 | Emergency (ER) | payer BC, SELFPAY ==
[2024-03-31 06:30] VITALS: BP 137/74; PULSE 67; RESP 18; TEMP 36.5; O2SAT 99
--- NOTE | 2024-03-31 07:00 | DI.RAD_ITS ---
Exam(s) XR ANKLE LT COMPLETE EXAM: XR ANKLE LT COMPLETE h CLINICAL HISTORY: ankle pain. TECHNIQUE: 2D digital imaging was performed. COMPARISON: No exams were available for comparison FINDINGS: 3 views No evidence of acute fracture or widening the ankle mortise.. Talar dome unremarkable. Some soft ti ssue swelling is noted but no gas in soft tissues no radiopaque foreign bodies. There is a moderate size inferior calcaneal spur incidentally noted. IMPRESSION: No acute osseous findings in the ankle. DATA REPOSITORY: RADIATION DOSE DELIVERED:
--- NOTE | 2024-03-31 07:15 | W.ED.GENAD ---
Discharge Plan Disposition Patient Disposition: Home Discharge Details Clinical Impression: Strain of left Achilles tendon Primary Care Provider: Jing Bishop ED Provider: Edgard Nowak Home Meds and New Rx's Prescriptions: Continued cyclobenzaprine 5 mg tablet 5 mg PO BID PRN (Reason: back pain) Qty: 30 0RF Rx Instructions: Take 1 tablet by mouth two times a day as needed for back pain albuterol sulfate 90 mcg/actuation HFA aerosol inhaler 2 inh inhalation Q6H PRN (Reason: shortness of breath or wheezing) Qty: 18 4RF omeprazole 20 mg capsule,delayed release(DR/EC) 20 mg PO DAILY Qty: 90 1RF gabapentin 100 mg capsule 100 mg PO TID Qty: 90 3RF medroxyprogesterone 150 mg/mL suspension See Rx Instructions .ROUTE .COMPLEX Qty: 1 3RF Dose Instruction: INJECT 150MG INTRAMUSCULARLY EVERY 12 WEEKS Rx Instructions: INJECT 150MG INTRAMUSCULARLY EVERY 12 WEEKS Discharge Instructions Instructions: Achilles tendon injury Additional Instructions: You were seen in the emergency department for your cath pain. Your ultrasound showed no sign of any tears in your tendons. Your x-ray showed no obvious signs of any fractures. You most likely have a strain. Please wear this walking boot and crutches and follow-up with your primary care provider next week. Please return to the emergency department as we discussed, if your foot turns blue or if you cannot feel your foot. Please also ice your Achilles tendon for 20 days on 20 soft out the day today. For your pain please take medications as follows: 1. Take acetaminophen (Tylenol), 1,000 mg (two 500 mg tabs) every 6 hours [2. Take ibuprofen (Advil), 400 mg every 6 hours.] Stand Alone Forms: Work Release Discharge Data Discharge Date/Time-TO BE ENTERED AT DEPARTURE: 03/31/24 08:47 HPI General Date/Time Provider Initiated Documentation: 03/31/24 06:37. HPI Narrative: MDM This is an overall very well-appearing normothermic and not tachycardic 28-year-old female with negative Klein test and reassuring bedside ultrasound not consistent with Achilles tendon rupture but more consistent with Achilles tendon sprain versus gastrocnemius strain for which patient will receive walking boot crutches and empiric trial of discharge with expectant outpatient management. Will obtain x-rays to assess for any acute osseous abnormalities. No pain on proportion to suggest necrotizing soft tissue infection. No erythema to suggest cellulitis. No fluctuance to suggest abscess. No joint effusion nor fevers to suggest a septic joint as I did not feel that the patient required arthrocentesis. I considered DVT however the patient does not have any palpable cords nor any recent immobilization and as result my suspicion was low for DVT so did not feel that the patient required a duplex study. Furthermore given her sudden onset symptoms I felt that DVT was less likely. Left foot warm well-perfused so not concern for critical limb ischemia so I do not feel the patient requires a CT angiogram. No history of gout to suggest gouty arthritis. HPI This is a 28-year-old female with a history of an elevated BMI arrived to the emergency department in the setting of left calf pain. 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 She says that approximately 3 AM this morning she was trying to stand up on her toes to peer into a space. She felt a snap in the back of her calf. She had difficulty bearing weight subsequently. She has been treating her injury with ice but has not received any pain medications. No prior history of surgeries to her left ankle in the past. No history of anticoagulation. No shortness of breath or chest pain. Exam General: Well-appearing in no acute distress speaking in complete sentences. Head: Normocephalic, atraumatic. Eye: Extraocular eye movements intact. No conjunctival injection. No scleral icterus. Ear, nose, mouth, throat: Grossly normal inspection. Normal voice, handling secretions normally. Neck: Trachea midline. Cardiovascular: Well-perfused distal extremities. Respiratory: Nonlabored respiration. Gastrointestinal: Nondistended abdomen. Musculoskeletal: Left foot warm well-perfused 2+ PT and DP pulses. Patient is able to plantarflex and dorsiflex on the left with 3 out of 5 strength limited secondarily by pain. No tenderness left knee lower tibia. No palpable cords. No ankle tenderness on the lateral medial malleolus. No midfoot instability. No lateral foot pain. Cap refill less than 2 seconds in the left toes. With patient laying prone with knee bent at 90 degrees I was able to squeeze the patient's left calf which resulted in plantarflexion. Patient had a negative Klein test. Skin: Normal for age and race, grossly normal temperature and turgor. No acute rash. Neurologic: Alert and appropriate, no apparent acute deficits. GCS 15 Psychiatric: Mood and manner are appropriate. Grooming and personal hygiene are appropriate. Related Data Home Medications ?Medication ?Instructions ?Recorded ?Confirmed medroxyprogesterone 150 mg/mL See Rx Instructions .Route 11/21/23 02/27/24 intramuscular suspension .COMPLEX #1 mL omeprazole 20 mg capsule,delayed 20 mg PO DAILY #90 caps 12/23/23 03/31/24 release albuterol sulfate 90 mcg/actuation 2 inh inhalation Q6H PRN shortness 02/13/24 03/31/24 aerosol inhaler of breath or wheezing #18 grams cyclobenzaprine 5 mg tablet 5 mg PO BID PRN back pain #30 tabs 02/13/24 03/31/24 gabapentin 100 mg capsule 100 mg PO TID #90 caps 02/27/24 03/31/24 Previous Rx's ?Medication ?Instructions ?Recorded medroxyprogesterone 150 mg/mL See Rx Instructions .Route 11/21/23 intramuscular suspension .COMPLEX #1 mL omeprazole 20 mg capsule,delayed 20 mg PO DAILY #90 caps 12/23/23 release albuterol sulfate 90 mcg/actuation 2 inh inhalation Q6H PRN shortness 02/13/24 aerosol inhaler of breath or wheezing #18 grams cyclobenzaprine 5 mg tablet 5 mg PO BID PRN back pain #30 tabs 02/13/24 gabapentin 100 mg capsule 100 mg PO TID #90 caps 02/27/24 Allergies Allergy/AdvReac Type Severity Reaction Status Date / Time naproxen AdvReac Nausea Verified 03/31/24 06:33 tramadol AdvReac Hallucinati Verified 03/31/24 06:33 ons General Stated Complaint: Orthopedic SONDRA: 3 Course Vital Signs Vital signs: Vital Signs Pulse 67 03/31/24 06:30 Respiratory Rate 18 03/31/24 06:30 Blood Pressure 137/74 03/31/24 06:30 Pulse Oximetry 99 03/31/24 06:30 Pulse 67 03/31/24 06:30 Respiratory Rate 18 03/31/24 06:30 Respiratory Effort Normal 03/31/24 06:32 Blood Pressure 137/74 03/31/24 06:30 Blood Pressure Position Sitting 03/31/24 06:30 Pulse Oximetry 99 03/31/24 06:30 Oxygen Delivery Method Room Air 03/31/24 06:30 Oxygen Flow Rate 0 03/31/24 06:30 Pain Level 5 03/31/24 07:00 Medical Decision Making Quality:SDOH Health Related Social Needs: No Data to Display PFSH All Active Problems (Updated 03/31/24 @ 08:21 by Edgard Nowak MD) Strain of left Achilles tendon (Acute) Elevated rheumatoid factor (Acute) [facility] Rheumatology consulted 12/2023, r/o rheumatoid arthritis Endometriosis (Chronic) Abnormal uterine bleeding (Chronic) on depo for cycle control Asthma (Chronic) Class 3 severe obesity with body mass index (BMI) of 40.0 to 44.9 in adult (Chronic) GERD (gastroesophageal reflux disease) (Chronic) Nausea and vomiting (Chronic) Vaginismus (Chronic) Significant pain with speculum exams. On Depo-Provera for contraception (Chronic) Chronic low back pain (Chronic) Chronic joint pain (Chronic) Medical History Right ureteral calculus Depression Migraine Surgical History Hx of cholecystectomy H/O laparoscopy Family History Mother Substance use disorder Father No problems noted. Brother No problems noted. Brother No problems noted. Maternal Grandfather Heart disease Maternal Grandmother Heart disease Paternal Grandfather No problems noted. Paternal Grandmother No problems noted. Social History Smoking/Tobacco Use Status: Never Second Hand Exposure: Yes Smoking risk assessment performed?: Yes Alcohol Intake: current Alcohol Intake frequency: 3 or more drinks per day Alcohol type: wine and hard liquor Substance use type: does not use Caregiver/Support person: No Household members: none Housing: apartment Communication Needs: None Do you need help understanding health information?: Never Pets and animals: Yes Pets and animals: dog(s) Sexually active: No Do you think of yourself as: straight/heterosexual Current gender identity: female What is your relationship status?: never How often do you talk on the phone with friends or family?: twice per week How often do you get together with friends or relatives?: once per week How often do you attend jainism or pentecostalism services?: decline to answer Do you belong to any clubs or organized social groups?: no Panel score (0-1 are the most socially isolated patients): 1 What type of physical activity do you participate in: yoga Duration: 15-30 minutes/day Frequency: 3-4 times per week Mamie/Baptist: No preference Seatbelt use: sometimes Helmet use: No Drive 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 Do you feel safe at home: Yes Do you feel safe in your relationship?: Yes Additional Social history: lives alone Female Reproductive History Menstrual Age of Menarche: 12 Duration of menses: other control method: progesterone injection History History 0 Para Hx # Term Pregnancies Multiple births Hx # Pregnancies Ectopic pregnancies AB induced Hx Number of Living Children AB spontaneous POCUS Exam (ED) Limited Soft Tissue Exam DATE OF EXAM: 03/31/24 TIME OF EXAM: 07:55 PROVIDER THAT PERFORMED THE STUDY: Edgard Nowak IS THIS A REPEAT EXAM DURING THIS ENCOUNTER: No LOCATION OF EXAM: Lower extremity/left REASON FOR EXAM: Pain Exam Complete INCIDENTAL FINDINGS: No signs of acute stent up-to-date.
[2024-03-31] MEDS: Acetaminophen 500 MG TAB 1000 MG PO (07:50)
[2024-03-31] MEDS: Ibuprofen 600 MG TAB PO (07:50)
--- NOTE | 2024-03-31 09:11 | DI.VRAD_ITS ---
PROCEDURE INFORMATION: Exam: XR Left Ankle Exam date and time: 03/31/2024 7:24 AM Age: 28 years old Clinical indication: Left; Patient HX: Ankle pain TECHNIQUE: Imaging protocol: Radiologic exam of the left ankle. Views: 3 or more views. COMPARISON: No relevant prior studies available. FINDINGS: Bones/joints: There is no evidence of acute fracture.There is no evidence of malalignment or dislocation. Soft tissues: Soft tissue swelling of the ankle IMPRESSION: There is no evidence of acute fracture.There is no evidence of malalignment or dislocation. Dictated and Authenticated by: Aravind Ruano MD. Ordering:RIDGE Rene MD
== END 2024-03-31 08:47 | disposition home or self-care (01) ==
PROVIDERS: Emergency Provider Emergency Medicine; PCP Nurse Practitioner Family
DX: S86.012A Strain of left Achilles tendon, initial encounter (principal); X58.XXXA Exposure to other specified factors, initial encounter
CPT/HCPCS: 76882; 99284; 73610; 99283

== ENCOUNTER 2024-04-10 03:47 | Emergency (ER) | payer BC, SELFPAY ==
[2024-04-10] VITALS (10 sets, daily range): BP systolic 109–120; BP diastolic 69–78; PULSE 88–111; RESP 13–22; TEMP 36.4; O2SAT 94–99
--- NOTE | 2024-04-10 03:45 | DI.CT_ITS ---
Exam(s) CT ABDOMEN PELVIS W EXAM: CT ABDOMEN PELVIS W CLINICAL HISTORY: N/V, RUQ RLQ TTP (prior cholecystectomy) TECHNIQUE: Imaging Protocol: Axial computed tomography images with coronal and sagittal reformatted images were created and reviewed. CONTRAST MATERIAL: Intravenous: Omnipaque 350 Contrast volume:100 mL Oral: No COMPARISON: CT CT RENAL COLIC WO from 12/03/[address] RENAL COLIC WO from 01/15/2024 FINDINGS: ABDOMEN: Lung Bases: Normal where visualized. Liver: Normal density. No measurable mass. Portal, Superior Mesenteric, and Splenic Veins: Unremarkable. Gallbladder and Biliary Tract: Status post cholecystectomy. No significant biliary ductal dilatation is present. Pancreas: Normal density, no abnormal calcifications or inflammatory process. Spleen: Normal. Adrenals: No masses seen. Kidneys: Normal size, contour and axis. There is a 3 mm nonobstructing stone in the lower pole of the left kidney. No masses seen. Abdominal Aorta: Abdominal portion non-dilated. Bowel: No obstruction or bowel wall thickening. No evidence of appendicitis. Peritoneal Cavity: No ascites, collection or mesenteric inflammatory response. No free air. Lymph Nodes: Within normal limits. Bones: Within normal limits for the patient's age. Soft Tissues: Unremarkable. PELVIS: Bladder: The urinary bladder is incompletely distended limiting evaluation. No gross abnormality is identified. Reproductive Organs: Unremarkable as visualized. Lymph Nodes: Within normal limits. Bones: Within normal limits for the patient's age. IMPRESSION: No acute abdominal or pelvic process. RADIATION DOSE DELIVERED: 801.29mGy.cm Total DLP DATA REPOSITORY: All CT scans at this facility are submitted to the National Radiology Data Registry (NRDR) Dose Index Registry (DIR) with the [employer] ([employer]). RADIATION OPTIMIZATION: All CT scans at this facility use at least one of these dose optimization te chniques: automated exposure control; mA and/or kV adjustment per patient size (includes targeted exa ms where dose is matched to clinical indication); or iterative reconstruction.
--- NOTE | 2024-04-10 03:45 | RT.EKG_ITS ---
APPROVED REPORT Exam: Resting ECG Reason for Exam: c/p Patient Location: E HR:89 bpm ECG Measurements Heart Rate 89 AXIS OR 143 P 34 QRSd 72 QRS 9 QT 362 T 30 QTc 442 Conclusion Sinus rhythm...normal P axis, V-rate 60- 99 Low voltage, precordial leads...precordial leads <1.0mV appropriate intervals, no ST segment or T wave abnormalities to suggest occlusive WA.
--- NOTE | 2024-04-10 03:45 | DI.CT_ITS ---
Exam(s) CT HEAD WO EXAM: CT HEAD WO CLINICAL HISTORY: AGUIRRE, vomiting. TECHNIQUE: Imaging Protocol: Axial computed tomography images with coronal and sagittal reformatted images were created and reviewed COMPARISON: No exams were available for comparison FINDINGS: Ventricles and Extra axial spaces: Normal in size and morphology for the patient's age. Hemorrhage: None. Cerebral parenchyma: Normal. Midline shift: None. Brainstem/Cerebellum: Normal. Calvarium: Normal. Visualized Paranasal sinuses/Mastoids: Clear. Soft Tissues: Unremarkable. IMPRESSION: No acute intracranial process. RADIATION DOSE DELIVERED: 816.61mGy.cm Total DLP DATA REPOSITORY: All CT scans at this facility are submitted to the National Radiology Data Registry (NRDR) Dose Index Registry (DIR) with the [employer] (ACR). RADIATION OPTIMIZATION: All CT scans at this facility use at least one of these dose optimization te chniques: automated exposure control; mA and/or kV adjustment per patient size (includes targeted exa ms where dose is matched to clinical indication); or iterative reconstruction.
[2024-04-10] MEDS: Droperidol 5 MG/2 ML VIAL 1.25 MG IVP (04:04)
[2024-04-10 04:08] LABS: Abs Immature Grans 0.02 10^3/uL (0.0-0.06); Absolute Basophil Count 0.07 10^3/uL (0.0-0.2); Absolute Eosinophil Count 0.27 10^3/uL (0.0-0.7); Absolute Lymphocyte Count 3.26 10^3/uL (1.2-3.4); Absolute Monocyte Count 0.72 10^3/uL (0.1-0.8); Basophils % 0.6 %; Eosinophils % 2.5 %; HCT 42.8 % (36.0-46.0); HGB 14.5 g/dL (11.2-15.7); Immature Grans % 0.2 %; Lymphocytes % 29.8 %; MCHC 33.9 % (32.0-36.0); MCV 83 fL (80-95); MPV 9.7 fL (8.0-11.0); Monocytes % 6.6 %; Neutrophils % 60.3 %; Platelet Count 333 10^3/uL (130-400); RBC 5.17 10^6/uL (3.93-5.22); RDW 12.1 % (11.7-14.6); RDW-SD 36.9 fL; WBC 10.94 10^3/uL (4.4-10.8)
[2024-04-10] MEDS: Omnipaque 350 MG/ML 100 ML BTL IJ (04:18)
[2024-04-10] MEDS: Normal Saline Flush 10 ML SYR IVP (04:19)
[2024-04-10] MEDS: Normal Saline - Diluent 50 ML VIAL IJ (04:20)
[2024-04-10 04:24] LABS: Bilirubin Negative (Negative); Blood Small (Negative); Clarity Clear (Clear); Glucose Negative (Negative); Ketones Negative (Negative); Leukocyte Esterase Negative (Negative); Nitrite Negative (Negative); Specific Gravity 1.025 (1.005-1.025); Urobilinogen 0.2 mg/dL (Up to 0.2)
[2024-04-10 04:31] LABS: Bacteria Moderate HPF (Negative); C & S Indicated? No/Sq. Contamination; Casts Negative LPF (Negative); Crystals Negative HPF (Negative); Epithelial Cells Many HPF (Negative); Mucus Moderate (Negative)
[2024-04-10 04:46] LABS: ALT 42 U/L (14-59); AST 32 U/L (15-37); Albumin 3.6 g/dL (3.4-5.0); Alkaline Phosphatase 160 U/L (46-116); Anion Gap 13.4 mmol/L (3-11); BUN 10 mg/dL (7-18); Bilirubin, Total 0.29 mg/dL (0.2-1.0); CO2 22.6 mmol/L (21.0-32.0); CREATININE 0.9 mg/dL (0.55-1.02); Calcium 9.6 mg/dL (8.5-10.1); Chloride 108 mmol/L (98-107); Glucose 96 mg/dL (74-106); Magnesium 2.2 mg/dL (1.8-2.4); Potassium 4.1 mmol/L (3.5-5.1); Sodium 144 mmol/L (136-145); Total Protein 8.1 g/dL (6.4-8.2)
[2024-04-10 04:48] LABS: COVID-19 PCR Negative (Negative); HCG Quant, Pregnancy < 1 mIU/mL (1-3); Influenza A PCR Negative (Negative); Influenza B PCR Negative (Negative); RSV PCR Negative (Negative); Troponin I < 4 ng/L (<or=51)
[2024-04-10 04:54] LABS: Lipase 28 U/L (16-77)
[2024-04-10 04:55] LABS: Source Nasopharynx
--- NOTE | 2024-04-10 05:05 | DI.VRAD_ITS ---
PROCEDURE INFORMATION: Exam: CT Head Without Contrast Exam date and time: 04/10/2024 4:31 AM Age: 28 years old Clinical indication: Other: AGUIRRE, vomiting TECHNIQUE: Imaging protocol: Computed tomography of the head without contrast. Radiation optimization: All CT scans at this facility use at least one of these dose optimization techniques: automated exposure control; mA and/or kV adjustment per patient size (includes targeted exams where dose is matched to clinical indication); or iterative reconstruction. COMPARISON: No relevant prior studies available. FINDINGS: Brain: Normal. No hemorrhage or edema. Cerebral ventricles: No ventriculomegaly. Paranasal sinuses: Visualized sinuses are unremarkable. No fluid levels. Mastoid air cells: Unremarkable. Bones: Unremarkable. No acute fracture. Soft tissues: Unremarkable. IMPRESSION: No acute intracranial abnormality. Dictated and Authenticated by: José Miguel Washington MD. Ordering:JUVENTINO Rain MD
--- NOTE | 2024-04-10 05:15 | ED.GENADUL_ITS ---
Discharge Plan Disposition Patient Disposition: Home Condition: Good Discharge Details Clinical Impression: Vomiting, Headache Primary Care Provider: Jing Bishop ED Provider: Briseyda Mi Home Meds and New Rx's Prescriptions: New ondansetron 4 mg tablet,disintegrating 4 mg PO Q8H PRNQty: 14 0RF Continued cyclobenzaprine 5 mg tablet 5 mg PO BID PRN (Reason: back pain) Qty: 30 0RF Rx Instructions: Take 1 tablet by mouth two times a day as needed for back pain albuterol sulfate 90 mcg/actuation HFA aerosol inhaler 2 inh inhalation Q6H PRN (Reason: shortness of breath or wheezing) Qty: 18 4RF omeprazole 20 mg capsule,delayed release(DR/EC) 20 mg PO DAILY Qty: 90 1RF gabapentin 100 mg capsule 100 mg PO TID Qty: 90 3RF medroxyprogesterone 150 mg/mL suspension See Rx Instructions .ROUTE .COMPLEX Qty: 1 3RF Dose Instruction: INJECT 150MG INTRAMUSCULARLY EVERY 12 WEEKS Rx Instructions: INJECT 150MG INTRAMUSCULARLY EVERY 12 WEEKS Discharge Instructions Instructions: Headache, Adult ED, Nausea and Vomiting, Adult ED Additional Instructions: Tylenol and ibuprofen over the counter for headache; follow the directions on the bottle. Ondanestron up to every 8 hours as needed for nausea. call your primary care doctor today to schedule an appointment to be seen within 48 hours to followup on your visit here. Return to the emergency department for new or worsening symptoms including new/different/worse headache, inability to keep down fluids, abdominal pain, chest pain, or if you have any other concerns. Stand Alone Forms: Work Release Referrals: Jing Bishop NP [Primary Care Provider] - [facility] General Mode of arrival: EMS . Date/Time Provider Initiated Documentation: 04/10/24 04:40 . Limitations to Documentation: no limitations . Information obtained by: patient and EMS . HPI Narrative: 28yo F with hx asthma, BERD, obesity, chronic back pain, presenting for nausea and vomiting with associated headache. Has 4-5 days of dry cough with no difficulty breathing. Yesterday developed nausea and vomiting, unable to keep anything down since yesterday afternoon. Nonbloody nonbilious. No abdominal pain, has had somewhat loose non-bloody stool. Shortly after she began vomiting she develop a dull occipital headache, gradually worsening in severity. No numbness, tingling, weakness, or vision changes. Tonight began to have 'burning' substernal chest pain, non radiating, which she attributes to vomiting. 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 She is otherwise in her usual state of health with no fevers, chills, dysuria, hematuria, or other concerns. Related Data Home Medications ?Medication ?Instructions ?Recorded ?Confirmed medroxyprogesterone 150 mg/mL See Rx Instructions .Route 11/21/23 04/10/24 intramuscular suspension .COMPLEX #1 mL omeprazole 20 mg capsule,delayed 20 mg PO DAILY #90 caps 12/23/23 04/10/24 release albuterol sulfate 90 mcg/actuation 2 inh inhalation Q6H PRN shortness 02/13/24 04/10/24 aerosol inhaler of breath or wheezing #18 grams cyclobenzaprine 5 mg tablet 5 mg PO BID PRN back pain #30 tabs 02/13/24 04/10/24 gabapentin 100 mg capsule 100 mg PO TID #90 caps 02/27/24 04/10/24 ondansetron 4 mg disintegrating 4 mg PO Q8H PRN #14 tabs 04/10/24 tablet Previous Rx's ?Medication ?Instructions ?Recorded medroxyprogesterone 150 mg/mL See Rx Instructions .Route 11/21/23 intramuscular suspension .COMPLEX #1 mL omeprazole 20 mg capsule,delayed 20 mg PO DAILY #90 caps 12/23/23 release albuterol sulfate 90 mcg/actuation 2 inh inhalation Q6H PRN shortness 02/13/24 aerosol inhaler of breath or wheezing #18 grams cyclobenzaprine 5 mg tablet 5 mg PO BID PRN back pain #30 tabs 02/13/24 gabapentin 100 mg capsule 100 mg PO TID #90 caps 02/27/24 ondansetron 4 mg disintegrating 4 mg PO Q8H PRN #14 tabs 04/10/24 tablet Allergies Allergy/AdvReac Type Severity Reaction Status Date / Time naproxen AdvReac Nausea Verified 04/10/24 03:55 tramadol AdvReac Hallucinati Verified 04/10/24 03:55 ons General Stated Complaint: Nausea/Vomit/Diar SONDRA: 3 Review of Systems Narrative: see HPI Exam Narrative Exam Narrative: General: Alert, well nourished, non-toxic Head: Normocephalic, atraumatic Neck: Trachea midline, ?Neck supple. ENT: ?MMM.? No oropharygeal lesions or exudate. Cardiac: ?RRR, no murmurs appreciated Resp: No respiratory distress. CTAB. Abd: ?Soft, non-distended, right upper/mid/lower abdomen TTP wtih no rebound or guarding. : ?No suprapubic tenderness. No CVA tenderness. Extremities: ?No deformities.? No peripheral edema. Neuro: ? GCS 15 PERRL.? EOMI.? Fluent speech, no dysarthria. Normal sensation in V1, V2, and V3 segments bl. No asymmetry, no nasolabial fold flattening. Normal hearing to speech. Normal palatal elevation, no uvular deviation. 5/5 head turn and 5/5 shoulder shrug bl Motor- 5/5 strength symmetric bilateral upper and lower extremities Sensation- ?Intact to light touch and symmetric multiple dermatomes including upper and lower extremities Gait/station: ?Normal stance.? No truncal ataxia. Steady gait with equal normal steps Course Vital Signs Vital signs: Vital Signs Temperature 36.4 C L 04/10/24 03:47 Pulse 93 H 04/10/24 03:47 Respiratory Rate 18 04/10/24 03:47 Blood Pressure 120/76 04/10/24 03:47 Pulse Oximetry 96 04/10/24 03:47 Temperature 36.4 C L 04/10/24 03:51 Temperature Source Temporal Artery Scan 04/10/24 03:51 Pulse 93 H 04/10/24 03:51 Respiratory Rate 18 04/10/24 03:51 Respiratory Effort Normal, Non-Labored 04/10/24 03:51 Blood Pressure 120/76 04/10/24 03:51 Blood Pressure Position Supine 04/10/24 03:51 Pulse Oximetry 96 04/10/24 03:51 Oxygen Delivery Method Room Air 04/10/24 03:51 Oxygen Flow Rate 0 04/10/24 03:47 Pain Level 6 04/10/24 03:51 Lab/Test Results Lab/Test Results: Laboratory Tests Range/Units 04/10/24 04/10/24 04:00 04:15 WBC (4.4-10.8) 10^3/uL 10.94 H RBC (3.93-5.22) 10^6/uL 5.17 Hgb (11.2-15.7) g/dL 14.5 Hct (36.0-46.0) % 42.8 MCV (80-95) fL 83 MCH (27.0-33.0) pg 28.0 MCHC (32.0-36.0) % 33.9 RDW (11.7-14.6) % 12.1 Plt Count (130-400) 10^3/uL 333 MPV (8.0-11.0) fL 9.7 Immature Gran % % 0.2 Neutrophils % % 60.3 Lymphocytes % % 29.8 Monocytes % % 6.6 Eosinophils % % 2.5 Basophils % % 0.6 Nucleated RBC % (0.0-0.3) % 0.0 Absolute Neutrophils (1.2-6.7) 10^3/uL 6.60 Absolute Lymphocytes (1.2-3.4) 10^3/uL 3.26 Absolute Monocytes (0.1-0.8) 10^3/uL 0.72 Absolute Eosinophils (0.0-0.7) 10^3/uL 0.27 Absolute Basophils (0.0-0.2) 10^3/uL 0.07 Sodium (136-145) mmol/L 144 Potassium (3.5-5.1) mmol/L 4.1 Chloride (98-107) mmol/L 108 H Carbon Dioxide (21.0-32.0) mmol/L 22.6 Anion Gap (3-11) mmol/L 13.4 H BUN (7-18) mg/dL 10 Creatinine (0.55-1.02) mg/dL 0.9 Est GFR (CKD-EPI 2020) (mL/min/1.73m2) 89.30 Glucose (74-106) mg/dL 96 Calcium (8.5-10.1) mg/dL 9.6 Magnesium (1.8-2.4) mg/dL 2.2 Total Bilirubin (0.2-1.0) mg/dL 0.29 AST (15-37) U/L 32 ALT (14-59) U/L 42 Alkaline Phosphatase (46-116) U/L 160 H Troponin I (<or=51) ng/L < 4 Total Protein (6.4-8.2) g/dL 8.1 Albumin (3.4-5.0) g/dL 3.6 Lipase (16-77) U/L 28 Beta HCG, Quant (1-3) mIU/mL < 1 L Urine Color (Yellow) Yellow Urine Clarity (Clear) Clear Urine pH (5-8) 6.0 Ur Specific [place] (1.005-1.025) 1.025 Urine Protein (Neg-Trace) mg/dL 30 H Urine Ketones (Negative) mg/dL Negative Urine Blood (Negative) Small H Urine Nitrite (Negative) Negative Urine Bilirubin (Negative) Negative Urine Urobilinogen (Up to 0.2) mg/dL 0.2 Ur Leukocyte Esterase (Negative) Negative Urine RBC (0-2) HPF 3-5 H Urine WBC (0-5) HPF 3-5 Ur Epithelial Cells (Negative) HPF Many Urine Crystals (Negative) HPF Negative Urine Bacteria (Negative) HPF Moderate Urine Casts (Negative) LPF Negative Urine Mucus (Negative) Moderate Ur Culture Indicated? No/Sq. Contamination Urine Glucose (Negative) mg/dL Negative COVID-19 Source Nasopharynx SARS-CoV-2 (PCR) (Negative) Negative Influenza Type A (PCR) (Negative) Negative Influenza Type B (PCR) (Negative) Negative RSV (PCR) (Negative) Negative POC- Test(urine) Negative Medical Decision Making 28yo F with hx asthma, BERD, obesity, chronic back pain, presenting for nausea and vomiting with associated headache, preceded by 4-5 days of dry cough. Vital signs reassuring on arrival. Diffuse right sided abdominal tenderness with no peritoneal signs. Normal neurologic exam. History and exam not particularly suggestive of acute intracranial process, SAH/ICH, cerebral venous thrombosis, idopathic intracranial hypertension,etc however given vomiting with moderate to severe headache will evaluate with head CT. No fever to suggest meningitis. Will treat headache/vomiting wtih IV droperidol while awaiting results of workup. -EKG on arrival NSR, appropriate intervals, no ST segment or T wave abnormalities to suggest occlusive TX. -Labs reviewed as below, CBC reassuring, CMP with no actionable abnormalities (mildly elevated gap suspect 2/t ketones given hx), ALP slightly elevated but baseline for pt on [facility] record review, lipase normal (unlikely pancreatitis), not . UA not infected. Respiratory viral swab negative. Initial troponin negative, 1 hour repeat 4. HEART score 2 for risk factors, low risk. Would not trend troponin or further pursue ACS. -CT head independently reviewed, no intracranial mass or hemmoraghe on my view; radiology read below with no acute abnormalities -CT abd/pelvis independently reviewed, no obstruction or free fluid on my view; radiology read below with no acute findings. On reassessment patient reports her symptoms have improved. Nausea is now mild, headache is still present but also mild. Will add toradol and PO challenge. On reassessment patient dressed and requesting discharge home, reports symptoms have resolved. Prescribed short course of zofran and discharged home; discharge instructions and return precautions were reviewed with patient who verbalized understanding. All questions were answered and she is in full agreement with the plan. Medical Records Medical records reviewed: Yes I reviewed the patient's medical records. Imaging Data Radiologic Study: Imaging: CT Scan Radiologist's impression: Head: IMPRESSION: No acute intracranial abnormality Abd/Pelvis: IMPRESSION: No acute findings. Lab Data Lab results reviewed: Yes I reviewed the patient's lab results. Labs: Laboratory Tests Range/Units 04/10/24 04/10/24 04/10/24 04:00 04:15 05:10 WBC (4.4-10.8) 10^3/uL 10.94 H RBC (3.93-5.22) 10^6/uL 5.17 Hgb (11.2-15.7) g/dL 14.5 Hct (36.0-46.0) % 42.8 MCV (80-95) fL 83 MCH (27.0-33.0) pg 28.0 MCHC (32.0-36.0) % 33.9 RDW (11.7-14.6) % 12.1 Plt Count (130-400) 10^3/uL 333 MPV (8.0-11.0) fL 9.7 Immature Gran % % 0.2 Neutrophils % % 60.3 Lymphocytes % % 29.8 Monocytes % % 6.6 Eosinophils % % 2.5 Basophils % % 0.6 Nucleated RBC % (0.0-0.3) % 0.0 Absolute Neutrophils (1.2-6.7) 10^3/uL 6.60 Absolute Lymphocytes (1.2-3.4) 10^3/uL 3.26 Absolute Monocytes (0.1-0.8) 10^3/uL 0.72 Absolute Eosinophils (0.0-0.7) 10^3/uL 0.27 Absolute Basophils (0.0-0.2) 10^3/uL 0.07 Sodium (136-145) mmol/L 144 Potassium (3.5-5.1) mmol/L 4.1 Chloride (98-107) mmol/L 108 H Carbon Dioxide (21.0-32.0) mmol/L 22.6 Anion Gap (3-11) mmol/L 13.4 H BUN (7-18) mg/dL 10 Creatinine (0.55-1.02) mg/dL 0.9 Est GFR (CKD-EPI 2020) (mL/min/1.73m2) 89.30 Glucose (74-106) mg/dL 96 Calcium (8.5-10.1) mg/dL 9.6 Magnesium (1.8-2.4) mg/dL 2.2 Total Bilirubin (0.2-1.0) mg/dL 0.29 AST (15-37) U/L 32 ALT (14-59) U/L 42 Alkaline Phosphatase (46-116) U/L 160 H Troponin I (<or=51) ng/L < 4 4 Total Protein (6.4-8.2) g/dL 8.1 Albumin (3.4-5.0) g/dL 3.6 Lipase (16-77) U/L 28 Beta HCG, Quant (1-3) mIU/mL < 1 L Urine Color (Yellow) Yellow Urine Clarity (Clear) Clear Urine pH (5-8) 6.0 Ur Specific [place] (1.005-1.025) 1.025 Urine Protein (Neg-Trace) mg/dL 30 H Urine Ketones (Negative) mg/dL Negative Urine Blood (Negative) Small H Urine Nitrite (Negative) Negative Urine Bilirubin (Negative) Negative Urine Urobilinogen (Up to 0.2) mg/dL 0.2 Ur Leukocyte Esterase (Negative) Negative Urine RBC (0-2) HPF 3-5 H Urine WBC (0-5) HPF 3-5 Ur Epithelial Cells (Negative) HPF Many Urine Crystals (Negative) HPF Negative Urine Bacteria (Negative) HPF Moderate Urine Casts (Negative) LPF Negative Urine Mucus (Negative) Moderate Ur Culture Indicated? No/Sq. Contamination Urine Glucose (Negative) mg/dL Negative COVID-19 Source Nasopharynx SARS-CoV-2 (PCR) (Negative) Negative Influenza Type A (PCR) (Negative) Negative Influenza Type B (PCR) (Negative) Negative RSV (PCR) (Negative) Negative Quality:SDOH Health Related Social Needs: No Data to Display PFSH All Active Problems (Updated 04/10/24 @ 06:20 by Briseyda Mi MD) Headache (Acute) Vomiting (Acute) Strain of left Achilles tendon (Acute) Elevated rheumatoid factor (Acute) [facility] Rheumatology consulted 12/2023, r/o rheumatoid arthritis Endometriosis (Chronic) Abnormal uterine bleeding (Chronic) on depo for cycle control Asthma (Chronic) Class 3 severe obesity with body mass index (BMI) of 40.0 to 44.9 in adult (Chronic) GERD (gastroesophageal reflux disease) (Chronic) Nausea and vomiting (Chronic) Vaginismus (Chronic) Significant pain with speculum exams. On Depo-Provera for contraception (Chronic) Chronic low back pain (Chronic) Chronic joint pain (Chronic) Medical History Right ureteral calculus Depression Migraine Surgical History Hx of cholecystectomy H/O laparoscopy Family History Mother Substance use disorder Father No problems noted. Brother No problems noted. Brother No problems noted. Maternal Grandfather Heart disease Maternal Grandmother Heart disease Paternal Grandfather No problems noted. Paternal Grandmother No problems noted. Social History Smoking/Tobacco Use Status: Never Second Hand Exposure: Yes Smoking risk assessment performed?: Yes Alcohol Intake: current Alcohol Intake frequency: 3 or more drinks per day Alcohol type: wine and hard liquor Substance use type: does not use Caregiver/Support person: No Household members: none Housing: apartment Communication Needs: None Do you need help understanding health information?: Never Pets and animals: Yes Pets and animals: dog(s) Sexually active: No Do you think of yourself as: straight/heterosexual Current gender identity: female What is your relationship status?: never How often do you talk on the phone with friends or family?: twice per week How often do you get together with friends or relatives?: once per week How often do you attend advent or bahai services?: decline to answer Do you belong to any clubs or organized social groups?: no Panel score (0-1 are the most socially isolated patients): 1 What type of physical activity do you participate in: yoga Duration: 15-30 minutes/day Frequency: 3-4 times per week Mamie/Hindu: No preference Seatbelt use: sometimes Helmet use: No Drive 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
--- NOTE | 2024-04-10 05:16 | DI.VRAD_ITS ---
PROCEDURE INFORMATION: Exam: CT Abdomen And Pelvis With Contrast Exam date and time: 04/10/2024 4:35 AM Age: 28 years old Clinical indication: Abdominal pain; Localized; Right; Prior surgery; Surgery date: 6+ months; Surgery type: Cholecystectomy, kidney stone removal; Patient HX: N/v, ruq \T\ rlq ttp (prior cholecystectomy) TECHNIQUE: Imaging protocol: Computed tomography of the abdomen and pelvis with contrast. Radiation optimization: All CT scans at this facility use at least one of these dose optimization techniques: automated exposure control; mA and/or kV adjustment per patient size (includes targeted exams where dose is matched to clinical indication); or iterative reconstruction. Contrast material: OMNIPAQUE 350; Contrast volume: 100 ml; Contrast route: INTRAVENOUS (IV); COMPARISON: CT RENAL COLIC WO 01/15/2024 2:36 PM FINDINGS: Liver: Hepatic steatosis. Gallbladder and biliary ducts: Prior cholecystectomy. No biliary ductal dilatation. Pancreas: Unremarkable. Spleen: Normal. Adrenal glands: Normal. No mass. Kidneys and ureters: Normal. No hydronephrosis. Stomach and bowel: Unremarkable. No bowel wall thickening or intestinal obstruction. Appendix: Normal appendix. Intraperitoneal space: Unremarkable. No pneumoperitoneum. No abscess. Vasculature: Unremarkable. Lymph nodes: Unremarkable. Urinary bladder: Unremarkable as visualized. Reproductive: Unremarkable as visualized. Bones/joints: Unremarkable. No acute fracture. Soft tissues: Unremarkable. IMPRESSION: No acute findings. Dictated and Authenticated by: José Miguel Washington MD. Ordering:JUVENTINO Rain MD
[2024-04-10] MEDS: Ketorolac 15 MG/ML VIAL IM (05:27)
[2024-04-10 05:38] LABS: Troponin I 4 ng/L (<or=51)
--- NOTE | 2024-04-10 06:17 | NUR.NOTE ---
Nursing Note: Pt provided gingerale to perform PO challenge. Pt able to drink and hold down beverage. PO challenge passed. notified.
== END 2024-04-10 06:25 | disposition home or self-care (01) ==
PROVIDERS: Emergency Provider Student in an Organized Health Care Education/Training Program; PCP Nurse Practitioner Family
DX: R11.2 Nausea with vomiting, unspecified (principal); R51.9 Headache, unspecified
CPT/HCPCS: 36415; 80053; 81025; 83690; 87637; 93005; 96372; 96374; 99285; 70450; 74177; 81003; 81015; 83735; 84484; 84702; 85025; 93010; 99284; J1790; J1885; J3490

== ENCOUNTER 2024-06-08 20:48 | Emergency (ER) | payer BC, SELFPAY ==
[2024-06-08 20:51] VITALS: PULSE 87; RESP 16; TEMP 36.6; O2SAT 96
[2024-06-08] MEDS: predniSONE 20 MG TAB 40 MG PO (21:19)
--- NOTE | 2024-06-08 23:07 | ED.GENADUL_ITS ---
Discharge Plan Disposition Patient Disposition: Home Discharge Details Clinical Impression: Polyarthralgia Primary Care Provider: Jing Bishop ED Provider: Vero Rees Home Meds and New Rx's Prescriptions: New prednisone 20 mg tablet 40 mg PO DAILY Qty: 8 0RF Continued albuterol sulfate 90 mcg/actuation HFA aerosol inhaler 2 inh inhalation Q6H PRN (Reason: shortness of breath or wheezing) Qty: 18 4RF omeprazole 20 mg capsule,delayed release(DR/EC) 20 mg PO DAILY Qty: 90 1RF gabapentin 100 mg capsule 100 mg PO TID Qty: 90 3RF medroxyprogesterone 150 mg/mL suspension See Rx Instructions .ROUTE .COMPLEX Qty: 1 3RF Dose Instruction: INJECT 150MG INTRAMUSCULARLY EVERY 12 WEEKS Rx Instructions: INJECT 150MG INTRAMUSCULARLY EVERY 12 WEEKS cyclobenzaprine 5 mg tablet 5 mg PO BID PRN (Reason: back pain) Qty: 30 0RF Rx Instructions: Take 1 tablet by mouth two times a day as needed for back pain meloxicam 7.5 mg tablet 7.5 mg PO DAILY Patient Comments: TAKE ONE TABLET BY MOUTH EVERY DAY Discharge Instructions Instructions: Joint Pain Additional Instructions: Prednisone as prescribed, follow-up with your fibre cement moulder Please return with fever, chills, or with any new or worsening complaints Referrals: Jing Bishop, MARIN [Primary Care Provider] - HPI General Date/Time Provider Initiated Documentation: 06/08/24 21:04 . HPI Narrative: This 28-year-old female presents with a history of polyarthralgia. She is being evaluated by fibre cement moulder but is not currently on any medications for immunosuppression. She states that frequently she gets joint aches and pains to her shoulders, hips, and knees. She states that this episode with her flare has lasted 2 more days than they typically last and she states that typically self resolved and this is not which concerned her. She denies any other significant change. She states she has been under a lot of stress and is wondering if it is triggering her swabs. Denies any history of diabetes or any additional meds at this time. Denies any tick bites. Related Data Home Medications ?Medication ?Instructions ?Recorded ?Confirmed medroxyprogesterone 150 mg/mL See Rx Instructions .Route 11/21/23 06/08/24 intramuscular suspension .COMPLEX #1 mL omeprazole 20 mg capsule,delayed 20 mg PO DAILY #90 caps 12/23/23 06/08/24 release albuterol sulfate 90 mcg/actuation 2 inh inhalation Q6H PRN shortness 02/13/24 06/08/24 aerosol inhaler of breath or wheezing #18 grams gabapentin 100 mg capsule 100 mg PO TID #90 caps 02/27/24 06/08/24 cyclobenzaprine 5 mg tablet 5 mg PO BID PRN back pain #30 tabs 06/04/24 06/08/24 meloxicam 7.5 mg tablet 7.5 mg PO DAILY 06/08/24 06/08/24 prednisone 20 mg tablet 40 mg (2 x 20 mg) PO DAILY #8 tabs 06/08/24 Previous Rx's ?Medication ?Instructions ?Recorded medroxyprogesterone 150 mg/mL See Rx Instructions .Route 11/21/23 intramuscular suspension .COMPLEX #1 mL omeprazole 20 mg capsule,delayed 20 mg PO DAILY #90 caps 12/23/23 release albuterol sulfate 90 mcg/actuation 2 inh inhalation Q6H PRN shortness 02/13/24 aerosol inhaler of breath or wheezing #18 grams gabapentin 100 mg capsule 100 mg PO TID #90 caps 02/27/24 cyclobenzaprine 5 mg tablet 5 mg PO BID PRN back pain #30 tabs 06/04/24 prednisone 20 mg tablet 40 mg (2 x 20 mg) PO DAILY #8 tabs 06/08/24 Allergies Allergy/AdvReac Type Severity Reaction Status Date / Time naproxen AdvReac Nausea Verified 06/08/24 20:49 tramadol AdvReac Hallucinati Verified 06/08/24 20:49 ons General Stated Complaint: GenMedical SONDRA: 4 Exam Narrative Exam Narrative: Alert and oriented 28-year-old female in no acute distress, no visible sign of swelling, discomfort with palpation over major joints, no rashes or lesions Course Vital Signs Vital signs: Vital Signs Temperature 36.6 C 06/08/24 20:51 Pulse 87 06/08/24 20:51 Respiratory Rate 16 06/08/24 20:51 Pulse Oximetry 96 06/08/24 20:51 Temperature 36.6 C 06/08/24 20:51 Temperature Source Oral 06/08/24 20:51 Pulse 87 06/08/24 20:51 Respiratory Rate 16 06/08/24 20:51 Respiratory Effort Normal, Non-Labored 06/08/24 21:23 Respiratory Depth Normal 06/08/24 21:23 Respiratory Pattern Normal 06/08/24 21:23 Blood Pressure Position Sitting 06/08/24 20:51 Pulse Oximetry 96 06/08/24 20:51 Oxygen Delivery Method Room Air 06/08/24 20:51 Oxygen Flow Rate 0 06/08/24 20:51 Pain Level 7 06/08/24 20:56 Medical Decision Making 28-year-old female in no acute distress with history of some sort of rheumatological disease undiagnosed at this time. Will give prednisone for the next several days for pain control. Risk of immunosuppression reviewed. Vital stable, no indication for blood work as patient has had the symptoms for a while and is currently under the care of primary care physician and fibre cement moulder in the outpatient setting. Return precautions reviewed and patient expressed understanding Quality:SDOH Health Related Social Needs: No Data to Display PFSH All Active Problems (Updated 06/08/24 @ 21:15 by DARNELL Maddox) Polyarthralgia (Acute) Multiple food allergies (Acute) Endometriosis (Chronic) Abnormal uterine bleeding (Chronic) on depo for cycle control Asthma (Chronic) Class 3 severe obesity with body mass index (BMI) of 40.0 to 44.9 in adult (Chronic) GERD (gastroesophageal reflux disease) (Chronic) Nausea and vomiting (Chronic) Vaginismus (Chronic) Significant pain with speculum exams. On Depo-Provera for contraception (Chronic) Chronic low back pain (Chronic) Chronic joint pain (Chronic) Plantar fasciitis of left foot (Acute) Medical History Elevated rheumatoid factor [facility] Rheumatology consulted 12/2023, no rheumatoid arthritis Right ureteral calculus Depression Migraine Surgical History Hx of cholecystectomy H/O laparoscopy Family History Mother Substance use disorder Father No problems noted. Brother No problems noted. Brother No problems noted. Maternal Grandfather Heart disease Maternal Grandmother Heart disease Paternal Grandfather No problems noted. Paternal Grandmother No problems noted. Social History Smoking/Tobacco Use Status: Never Second Hand Exposure: Yes Smoking risk assessment performed?: Yes Alcohol Intake: current Alcohol Intake frequency: 3 or more drinks per day Alcohol type: wine and hard liquor Substance use type: does not use Caregiver/Support person: No Household members: none Housing: apartment Communication Needs: None Do you need help understanding health information?: Never Pets and animals: Yes Pets and animals: dog(s) Sexually active: No Do you think of yourself as: straight/heterosexual Current gender identity: female What is your relationship status?: never How often do you talk on the phone with friends or family?: twice per week How often do you get together with friends or relatives?: once per week How often do you attend samaritan or taoism services?: decline to answer Do you belong to any clubs or organized social groups?: no Panel score (0-1 are the most socially isolated patients): 1 What type of physical activity do you participate in: yoga Duration: 15-30 minutes/day Frequency: 3-4 times per week Mamie/Hoahaoism: No preference Seatbelt use: sometimes Helmet use: No Drive intox or ride w/intox star route mail driver: No Do you feel safe at home: Yes Do you feel safe in your relationship?: Yes Additional Social history: lives alone Female Reproductive History Menstrual Age of Menarche: 12 Duration of menses: other control method: progesterone injection History History 0 Para Hx # Term Pregnancies Multiple births Hx # Pregnancies Ectopic pregnancies AB induced Hx Number of Living Children AB spontaneous PAWSS Have you Been Recently Intoxicated or Drunk Within the Last 30 days?: No Have you Ever Experienced Previous Episodes of Alcohol Withdrawal?: No Have you ever Experienced Withdrawal Seizures?: No Have you ever Experienced Delirium Tremens(DT)s?: No Have you ever undergone Alcohol Rehabilitation Treatment (i.e, inpt ot outpatient treatment programs)?: No Have you ever Experienced Blackouts?: No Have you ever Combined Alcohol with other Downers within the last 90 days?: No Have you ever Combined Alcohol with any other Substance of Abuse during the last 90 days?: No Positive Blood Alcohol level on Presentation? [PCS.BAL]: No Evidence of Increased Autonomic Activity (i.e. HR>120, tremor, sweating, agitation, nausea)?: No Result: 0
== END 2024-06-08 21:30 | disposition home or self-care (01) ==
LOC: ER 21:43
PROVIDERS: Emergency Provider Physician Assistant; PCP Nurse Practitioner Family
DX: M25.50 Pain in unspecified joint (principal)
CPT/HCPCS: 99283; J7512

== ENCOUNTER 2024-07-11 01:06 | Outpatient (CLI) | payer SELFPAY ==
[2024-07-12 11:15] LABS: IgA 315 mg/dL (85-499); Interpretation (See Note); Tissue Transglutaminase IgA <4.0 CU (<20.0)
== END 2024-07-11 01:07 | disposition home or self-care (01) ==
LOC: LBO 01:08
PROVIDERS: PCP Nurse Practitioner Family; Visit Provider Nurse Practitioner Family
DX: Z91.018 Allergy to other foods (principal)
CPT/HCPCS: 36415; 82784; 83516

== ENCOUNTER 2024-09-18 10:30 | Emergency (ER) | payer SELFPAY ==
[2024-09-18 10:40] VITALS: BP 138/77; PULSE 90; RESP 15; TEMP 35.8; O2SAT 96
--- NOTE | 2024-09-18 11:30 | DI.US_ITS ---
Exam(s) US ABDOMEN EXAM: US ABDOMEN CLINICAL HISTORY: bilateral flank and RUQ pain TECHNIQUE: Ultrasound abdomen performed using standard protocol. COMPARISON: CT CT ABDOMEN PELVIS W from 04/10/2024 FINDINGS: LIVER: Moderately increased echogenicity consistent with hepatic steatosis. No focal liver lesions a re seen. GALLBLADDER: Cholecystectomy. BILIARY SYSTEM: No intrahepatic or extrahepatic biliary ductal dilation. KIDNEYS: Kidneys are symmetric in size. Small shadowing focus at the lower pole of left kidney no xiang dence of hydronephrosis. No renal mass or cyst identified. PANCREAS: Normal where visualized. SPLEEN: Not enlarged. ABDOMINAL AORTA AND IVC: Visualized portions normal caliber. ASCITES: None seen. IMPRESSION: Hepatic steatosis. 4 millimeter cyst nonobstructing stone to lower pole of the left kidney. No evidence of hydronephros is. DATA REPOSITORY:
[2024-09-18 11:34] LABS: Abs Immature Grans 0.03 10^3/uL (0.0-0.06); Absolute Basophil Count 0.07 10^3/uL (0.0-0.2); Absolute Eosinophil Count 0.22 10^3/uL (0.0-0.7); Absolute Lymphocyte Count 2.28 10^3/uL (1.2-3.4); Absolute Neutrophil Count 6.11 10^3/uL (1.2-6.7); Basophils % 0.8 %; Eosinophils % 2.4 %; HGB 15.6 g/dL (11.2-15.7); Immature Grans % 0.3 %; Lymphocytes % 24.5 %; MCH 28.3 pg (27.0-33.0); MCHC 33.2 % (32.0-36.0); MCV 85 fL (80-95); MPV 9.8 fL (8.0-11.0); Monocytes % 6.4 %; Neutrophils % 65.6 %; Platelet Count 316 10^3/uL (130-400); RBC 5.52 10^6/uL (3.93-5.22); RDW 11.7 % (11.7-14.6); RDW-SD 36.2 fL; WBC 9.31 10^3/uL (4.4-10.8)
[2024-09-18 11:48] LABS: Bilirubin Negative (Negative); Blood Negative (Negative); Clarity Clear (Clear); Glucose Negative (Negative); Ketones Negative (Negative); Leukocyte Esterase Negative (Negative); Nitrite Negative (Negative); Urobilinogen 0.2 mg/dL (Up to 0.2)
[2024-09-18 11:58] LABS: ALT 33 U/L (14-59); AST 20 U/L (15-37); Albumin 3.8 g/dL (3.4-5.0); Alkaline Phosphatase 150 U/L (46-116); Anion Gap 11.4 mmol/L (3-11); BUN 12 mg/dL (7-18); Bilirubin, Total 0.5 mg/dL (0.2-1.0); CO2 22.6 mmol/L (21.0-32.0); CREATININE 0.8 mg/dL (0.55-1.02); Calcium 9.9 mg/dL (8.5-10.1); Chloride 106 mmol/L (98-107); Estimated GFR 102.22 (mL/min/1.73m2); Glucose 81 mg/dL (74-106); Lipase 26 U/L (<78); Sodium 140 mmol/L (136-145); Total Protein 7.8 g/dL (6.4-8.2)
[2024-09-18 12:56] VITALS: PULSE 73; O2SAT 99
[2024-09-18 12:57] VITALS: BP 114/78; PULSE 84; O2SAT 97
[2024-09-18] MEDS: Ketorolac 15 MG/ML VIAL 7.5 MG IVP (14:13)
[2024-09-18 14:36] VITALS: BP 129/92; PULSE 80; RESP 16; O2SAT 97
--- NOTE | 2024-09-18 15:36 | W.ED.GENAD ---
Discharge Plan Disposition Patient Disposition: Home Condition: Stable Discharge Details Clinical Impression: Back pain Primary Care Provider: Jing Bishop ED Provider: Vero Rees Home Meds and New Rx's Prescriptions: New cyclobenzaprine 10 mg tablet 10 mg PO TID PRNQty: 15 0RF Continued albuterol sulfate 90 mcg/actuation HFA aerosol inhaler 2 inh inhalation Q6H PRN (Reason: shortness of breath or wheezing) Qty: 18 4RF omeprazole 20 mg capsule,delayed release(DR/EC) 20 mg PO DAILY Qty: 90 1RF gabapentin 100 mg capsule 100 mg PO TID Qty: 90 3RF medroxyprogesterone 150 mg/mL suspension See Rx Instructions .ROUTE .COMPLEX Qty: 1 3RF Dose Instruction: INJECT 150MG INTRAMUSCULARLY EVERY 12 WEEKS Rx Instructions: INJECT 150MG INTRAMUSCULARLY EVERY 12 WEEKS cyclobenzaprine 5 mg tablet 5 mg PO BID PRN (Reason: back pain) Qty: 30 0RF Rx Instructions: Take 1 tablet by mouth two times a day as needed for back pain meloxicam 7.5 mg tablet 7.5 mg PO DAILY Patient Comments: TAKE ONE TABLET BY MOUTH EVERY DAY prednisone 20 mg tablet 40 mg PO DAILY Qty: 8 0RF Discharge Instructions Instructions: Upper Back Pain Additional Instructions: Take ibuprofen and Tylenol as needed for pain May take Flexeril for musculoskeletal pain light stretching and warm or cool compresses whichever feels better 8 hours after application Please be reevaluated by primary care physician in 3 to 5 days with persistent symptoms or should you have new or worsening complaints Stand Alone Forms: Work Release Referrals: Jing Bishop NP [Primary Care Provider] - 1 day Discharge Data Discharge Date/Time-TO BE ENTERED AT DEPARTURE: 09/18/24 14:39 HPI General Date/Time Provider Initiated Documentation: 09/18/24 11:09. HPI Narrative: The patient is a healthy 29-year-old female with bilateral flank pain and urinary frequency since yesterday. Pain worsens with movement and is similar to prior kidney stones. No changes in strength, sensation, incontinence, retention, or . No fever, chills, or history of illicit drug use. Related Data Home Medications ?Medication ?Instructions ?Recorded ?Confirmed medroxyprogesterone 150 mg/mL See Rx Instructions .Route 11/21/23 08/06/24 intramuscular suspension .COMPLEX #1 mL omeprazole 20 mg capsule,delayed 20 mg PO DAILY #90 caps 12/23/23 08/06/24 release albuterol sulfate 90 mcg/actuation 2 inh inhalation Q6H PRN shortness 02/13/24 08/06/24 aerosol inhaler of breath or wheezing #18 grams gabapentin 100 mg capsule 100 mg PO TID #90 caps 02/27/24 08/06/24 meloxicam 7.5 mg tablet 7.5 mg PO DAILY 06/08/24 08/06/24 prednisone 20 mg tablet 40 mg (2 x 20 mg) PO DAILY #8 tabs 06/08/24 08/06/24 cyclobenzaprine 5 mg tablet 5 mg PO BID PRN back pain #30 tabs 07/30/24 cyclobenzaprine 10 mg tablet 10 mg PO TID PRN #15 tabs 09/18/24 Previous Rx's ?Medication ?Instructions ?Recorded medroxyprogesterone 150 mg/mL See Rx Instructions .Route 11/21/23 intramuscular suspension .COMPLEX #1 mL omeprazole 20 mg capsule,delayed 20 mg PO DAILY #90 caps 12/23/23 release albuterol sulfate 90 mcg/actuation 2 inh inhalation Q6H PRN shortness 02/13/24 aerosol inhaler of breath or wheezing #18 grams gabapentin 100 mg capsule 100 mg PO TID #90 caps 02/27/24 prednisone 20 mg tablet 40 mg (2 x 20 mg) PO DAILY #8 tabs 06/08/24 cyclobenzaprine 5 mg tablet 5 mg PO BID PRN back pain #30 tabs 07/30/24 cyclobenzaprine 10 mg tablet 10 mg PO TID PRN #15 tabs 09/18/24 Allergies Allergy/AdvReac Type Severity Reaction Status Date / Time naproxen AdvReac Nausea Verified 07/27/24 12:42 tramadol AdvReac Hallucinati Verified 07/27/24 12:42 ons General Stated Complaint: Urinary SONDRA: 3 Exam Narrative Exam Narrative: General Appearance: Alert, oriented, no acute distress. Vital signs: Afebrile and nontoxic. Gastrointestinal: Mild tenderness in right upper quadrant. Back, Musculoskeletal: No CVA tenderness. Extremities: Strength, sensation, and distal pulses intact in lower extremities. Course Vital Signs Vital signs: Vital Signs Temperature 35.8 C L 09/18/24 10:40 Pulse 90 09/18/24 10:40 Respiratory Rate 15 09/18/24 10:40 Blood Pressure 138/77 09/18/24 10:40 Pulse Oximetry 96 09/18/24 10:40 Temperature 35.8 C L 09/18/24 10:40 Pulse 80 09/18/24 14:36 Respiratory Rate 16 09/18/24 14:36 Blood Pressure 129/92 H 09/18/24 14:36 Blood Pressure Mean 87 09/18/24 12:57 Blood Pressure Position Sitting 09/18/24 10:40 Pulse Oximetry 97 09/18/24 14:36 Oxygen Delivery Method Room Air 09/18/24 10:40 Oxygen Flow Rate 0 09/18/24 10:40 Pain Level 5 09/18/24 10:40 Lab/Test Results Lab/Test Results: Laboratory Tests Range/Units 09/18/24 09/18/24 11:30 11:40 WBC (4.4-10.8) 10^3/uL 9.31 RBC (3.93-5.22) 10^6/uL 5.52 H Hgb (11.2-15.7) g/dL 15.6 Hct (36.0-46.0) % 47.0 H MCV (80-95) fL 85 MCH (27.0-33.0) pg 28.3 MCHC (32.0-36.0) % 33.2 RDW (11.7-14.6) % 11.7 Plt Count (130-400) 10^3/uL 316 MPV (8.0-11.0) fL 9.8 Immature Gran % % 0.3 Neutrophils % % 65.6 Lymphocytes % % 24.5 Monocytes % % 6.4 Eosinophils % % 2.4 Basophils % % 0.8 Nucleated RBC % (0.0-0.3) % 0.0 Absolute Neutrophils (1.2-6.7) 10^3/uL 6.11 Absolute Lymphocytes (1.2-3.4) 10^3/uL 2.28 Absolute Monocytes (0.1-0.8) 10^3/uL 0.60 Absolute Eosinophils (0.0-0.7) 10^3/uL 0.22 Absolute Basophils (0.0-0.2) 10^3/uL 0.07 Sodium (136-145) mmol/L 140 Potassium (3.5-5.1) mmol/L 4.0 Chloride (98-107) mmol/L 106 Carbon Dioxide (21.0-32.0) mmol/L 22.6 Anion Gap (3-11) mmol/L 11.4 H BUN (7-18) mg/dL 12 Creatinine (0.55-1.02) mg/dL 0.8 Est GFR (CKD-EPI 2020) (mL/min/1.73m2) 102.22 Glucose (74-106) mg/dL 81 Calcium (8.5-10.1) mg/dL 9.9 Total Bilirubin (0.2-1.0) mg/dL 0.5 AST (15-37) U/L 20 ALT (14-59) U/L 33 Alkaline Phosphatase (46-116) U/L 150 H Total Protein (6.4-8.2) g/dL 7.8 Albumin (3.4-5.0) g/dL 3.8 Lipase (<78) U/L 26 Urine Color (Yellow) Yellow Urine Clarity (Clear) Clear Urine pH (5-8) 7.0 Ur Specific [place] (1.005-1.025) 1.020 Urine Protein (Neg-Trace) mg/dL Negative Urine Ketones (Negative) mg/dL Negative Urine Blood (Negative) Negative Urine Nitrite (Negative) Negative Urine Bilirubin (Negative) Negative Urine Urobilinogen (Up to 0.2) mg/dL 0.2 Ur Leukocyte Esterase (Negative) Negative Urine Glucose (Negative) mg/dL Negative POC- Test(urine) Negative Medical Decision Making Labs: Reassuring. Urinalysis: No infection. PSA: Negative. Imaging: Kidney and right upper quadrant ultrasound showed no bile duct dilatation, nephrolithiasis without ureterolithiasis. Initial Assessment: 29-year-old female with bilateral flank pain and urinary frequency starting yesterday. No fever, chills, or history of illicit drug use. Pain worse with movement, similar to prior kidney stones. ED Course: - Mild right upper quadrant tenderness, no CVA tenderness, afebrile, nontoxic. - Strength and sensation intact to bilateral lower extremities, distal pulses intact. - Ultrasound for kidneys and right upper quadrant: no common bile dilatation, nephrolithiasis without ureterolithiasis. - Diagnostic labs reassuring. - Urinalysis without evidence of infection. - Administered Toradol. - Prescribed muscle relaxants. - Provided work note for today. - PSA negative. - Recheck with primary care physician in 2 to 3 days encouraged. - Return precautions reviewed and patient expressed understanding. Final Assessment: Suspect musculoskeletal back pain. No findings consistent with cauda equina syndrome or intra-abdominal pathology. Treatment with Toradol and muscle relaxants. Clinical Impression: - Musculoskeletal back pain - Nephrolithiasis Disposition: - Discharge - Follow-Up: Recheck with primary care physician in 2 to 3 days. MDM Components Evaluation: - Number of Differential Diagnoses or Management Options: Musculoskeletal back pain, nephrolithiasis - Amount and Complexity of Data Reviewed: Ultrasound, diagnostic labs, urinalysis, PSA test - Risk of Complication and Morbidity or Mortality: Low risk based on current presentation and treatment plan. Quality:SDOH Health Related Social Needs: No Data to Display PFSH All Active Problems (Updated 09/18/24 @ 14:22 by DARNELL Maddox) Back pain (Acute) Multiple food allergies (Acute) Endometriosis (Chronic) Abnormal uterine bleeding (Chronic) on depo for cycle control Asthma (Chronic) Class 3 severe obesity with body mass index (BMI) of 40.0 to 44.9 in adult (Chronic) GERD (gastroesophageal reflux disease) (Chronic) Nausea and vomiting (Chronic) Vaginismus (Chronic) Significant pain with speculum exams. On Depo-Provera for contraception (Chronic) 07/27/24. New job makes commuting for Depo problematic. Pt will have LNG IUD inserted Chronic low back pain (Chronic) Chronic joint pain (Chronic) Plantar fasciitis of left foot (Acute) Medical History Elevated rheumatoid factor [facility] Rheumatology consulted 12/2023, no rheumatoid arthritis Right ureteral calculus Depression Migraine Surgical History Hx of cholecystectomy H/O laparoscopy Family History Mother Substance use disorder Father No problems noted. Brother No problems noted. Brother No problems noted. Maternal Grandfather Heart disease Maternal Grandmother Heart disease Paternal Grandfather No problems noted. Paternal Grandmother No problems noted. Social History Smoking/Tobacco Use Status: Never Second Hand Exposure: Yes Smoking risk assessment performed?: Yes Alcohol Intake: current Alcohol Intake frequency: 3 or more drinks per day Alcohol type: wine and hard liquor Drug use: Daily Substance use type: marijuana Caregiver/Support person: No Household members: none Housing: apartment Communication Needs: None Do you need help understanding health information?: Never Pets and animals: Yes Pets and animals: dog(s) Sexually active: No Do you think of yourself as: straight/heterosexual Current gender identity: female What is your relationship status?: never How often do you talk on the phone with friends or family?: twice per week How often do you get together with friends or relatives?: once per week How often do you attend voodoo or congregational services?: decline to answer Do you belong to any clubs or organized social groups?: no Panel score (0-1 are the most socially isolated patients): 1 What type of physical activity do you participate in: yoga Duration: 15-30 minutes/day Frequency: 3-4 times per week Mamie/Sikhism: No preference Seatbelt use: sometimes Helmet use: No Drive intox or ride w/intox public transit trolley driver: No Do you feel safe at home: Yes Do you feel safe in your relationship?: Yes Additional Social history: lives alone Female Reproductive History Menstrual Age of Menarche: 12 Duration of menses: other control method: progesterone injection History History 0 Para Hx # Term Pregnancies Multiple births Hx # Pregnancies Ectopic pregnancies AB induced Hx Number of Living Children AB spontaneous PAWSS Have you Been Recently Intoxicated or Drunk Within the Last 30 days?: No Have you Ever Experienced Previous Episodes of Alcohol Withdrawal?: No Have you ever Experienced Withdrawal Seizures?: No Have you ever Experienced Delirium Tremens(DT)s?: No Have you ever undergone Alcohol Rehabilitation Treatment (i.e, inpt ot outpatient treatment programs)?: No Have you ever Experienced Blackouts?: No Have you ever Combined Alcohol with other Downers within the last 90 days?: No Have you ever Combined Alcohol with any other Substance of Abuse during the last 90 days?: No Positive Blood Alcohol level on Presentation? [PCS.BAL]: No Evidence of Increased Autonomic Activity (i.e. HR>120, tremor, sweating, agitation, nausea)?: No Result: 0
== END 2024-09-18 14:39 | disposition home or self-care (01) ==
PROVIDERS: Emergency Provider Physician Assistant; PCP Nurse Practitioner Family
DX: R10.11 Right upper quadrant pain (principal); N20.0 Calculus of kidney
CPT/HCPCS: 80053; 81025; 83690; 96374; 99284; 76700; 81003; 85025; J1885

== ENCOUNTER 2024-10-23 18:01 | Emergency (ER) | payer SELFPAY ==
[2024-10-23 18:03] VITALS: BP 126/88; PULSE 92; RESP 16; TEMP 36.1; O2SAT 98
[2024-10-23 18:06] VITALS: BP 126/88; PULSE 92; RESP 16; TEMP 36.1; O2SAT 98
[2024-10-23] MEDS: Acetaminophen 500 MG TAB 1000 MG PO (18:56)
[2024-10-23] MEDS: Penicillin V POTASSIUM 500 MG TAB PO (18:56)
[2024-10-23 18:58] VITALS: BP 132/78; PULSE 90; RESP 16; TEMP 36.8; O2SAT 98
--- NOTE | 2024-10-23 19:59 | ED.GENADUL_ITS ---
Discharge Plan Disposition Patient Disposition: Home Discharge Details Clinical Impression: Dental infection Primary Care Provider: Jing Bishop ED Provider: Gregg Strickland Home Meds and New Rx's Prescriptions: New penicillin V potassium 500 mg tablet 500 mg PO TID 7 Days Qty: 21 0RF No Action albuterol sulfate 90 mcg/actuation HFA aerosol inhaler 2 inh inhalation Q6H PRN (Reason: shortness of breath or wheezing) Qty: 18 4RF omeprazole 20 mg capsule,delayed release(DR/EC) 20 mg PO DAILY Qty: 90 1RF gabapentin 100 mg capsule 100 mg PO TID Qty: 90 3RF cyclobenzaprine 5 mg tablet 5 mg PO BID PRN (Reason: back pain) Qty: 30 0RF Rx Instructions: Take 1 tablet by mouth two times a day as needed for back pain meloxicam 7.5 mg tablet 7.5 mg PO DAILY Patient Comments: TAKE ONE TABLET BY MOUTH EVERY DAY cyclobenzaprine 10 mg tablet 10 mg PO TID PRNQty: 15 0RF Discharge Instructions Instructions: Dental Pain Additional Instructions: Here wisdom tooth appears to be impacted showing some slight signs of infection. The antibiotic provided should hopefully prevent abscess development. He will need to follow-up with a dentist for further management of this. Continue Motrin or Tylenol as needed for pain. HPI General Date/Time Provider Initiated Documentation: 10/23/24 18:10 . Limitations to Documentation: no limitations . Information obtained by: patient . HPI Narrative: 29-year-old female without significant past medical history presents for darian luation of dental pain. She reports that for the last week she has been having pain in her right lower molar. She reports that her wisdom tooth has been abrupting, but it has not come all the way through the skin. She reports the last few days the pain has been fairly significant and associated with some facial swelling and enlarged lymph nodes. She reports that she had her other wisdom tooth coming without any difficulty. She does not have a dentist. Related Data Home Medications ?Medication ?Instructions ?Recorded ?Confirmed omeprazole 20 mg capsule,delayed 20 mg PO DAILY #90 caps 12/23/23 10/23/24 release albuterol sulfate 90 mcg/actuation 2 inh inhalation Q6H PRN shortness 09/09/24 05/20/25 aerosol inhaler of breath or wheezing #18 grams gabapentin 100 mg capsule 100 mg PO TID #90 caps 02/27/24 10/23/24 meloxicam 7.5 mg tablet 7.5 mg PO DAILY 06/08/24 10/23/24 cyclobenzaprine 5 mg tablet 5 mg PO BID PRN back pain #30 tabs 07/30/24 10/23/24 cyclobenzaprine 10 mg tablet 10 mg PO TID PRN #15 tabs 09/18/24 10/23/24 penicillin V potassium 500 mg 500 mg PO TID 7 days #21 tabs 10/23/24 tablet Previous Rx's ?Medication ?Instructions ?Recorded omeprazole 20 mg capsule,delayed 20 mg PO DAILY #90 caps 12/23/23 release albuterol sulfate 90 mcg/actuation 2 inh inhalation Q6H PRN shortness 02/13/24 aerosol inhaler of breath or wheezing #18 grams gabapentin 100 mg capsule 100 mg PO TID #90 caps 02/27/24 cyclobenzaprine 5 mg tablet 5 mg PO BID PRN back pain #30 tabs 07/30/24 cyclobenzaprine 10 mg tablet 10 mg PO TID PRN #15 tabs 09/18/24 penicillin V potassium 500 mg 500 mg PO TID 7 days #21 tabs 10/23/24 tablet Allergies Allergy/AdvReac Type Severity Reaction Status Date / Time naproxen AdvReac Nausea Verified 10/23/24 18:09 tramadol AdvReac Hallucinati Verified 10/23/24 18:09 ons General Stated Complaint: DentalOral SONDRA: 4 Exam Narrative Exam Narrative: Review of Systems: All systems reviewed & are unremarkable except as noted in HPI and below Well-developed, no acute distress NCAT No significant external facial swelling, there is some right submandibular lymphadenopathy that is tender, floor of mouth is soft, no trismus, no drooling or stridor, the right posterior lower wisdom tooth is partially erupted, there is some tenderness of the tooth directly in some erythema of the surrounding gingiva without apparent abscess Course Vital Signs Vital signs: Vital Signs Temperature 36.1 C L 10/23/24 18:03 Pulse 92 H 10/23/24 18:03 Respiratory Rate 16 10/23/24 18:03 Blood Pressure 126/88 10/23/24 18:03 Pulse Oximetry 98 10/23/24 18:03 Temperature 36.8 C 10/23/24 18:58 Temperature Source Temporal Artery Scan 10/23/24 18:06 Pulse 90 10/23/24 18:58 Respiratory Rate 16 10/23/24 18:58 Blood Pressure 132/78 10/23/24 18:58 Pulse Oximetry 98 10/23/24 18:58 Pain Level 6 10/23/24 18:58 Medical Decision Making Emergent evaluation of dental pain. Initial differential includes odontogenic abscess, dental carry, low suspicion for deep space infection. The patient does appear to have an infected erupting wisdom tooth. Will treat with antibiotics. I do not feel additional imaging is indicated at this time and there is no evidence of a drainable abscess. First dose of antibiotics given in the emergency department, the remainder sent to the pharmacy. Provided with a dental follow-up list and return precautions were discussed. Quality:[facility] Health Related Social Needs: No Data to Display PFSH All Active Problems (Updated 10/23/24 @ 18:35 by Gregg Strickland MD) Dental infection (Acute) Metabolic dysfunction-associated steatotic liver disease (MASLD) (Chronic) Multiple food allergies (Acute) Endometriosis (Chronic) Abnormal uterine bleeding (Chronic) on depo for cycle control Asthma (Chronic) GERD (gastroesophageal reflux disease) (Chronic) Obesity (Chronic) Nausea and vomiting (Chronic) Vaginismus (Chronic) Significant pain with speculum exams. On Depo-Provera for contraception (Chronic) 07/27/24. New job makes commuting for Depo problematic. Pt will have LNG IUD inserted Chronic low back pain (Chronic) Chronic joint pain (Chronic) Plantar fasciitis of left foot (Acute) Medical History Elevated rheumatoid factor [facility] Rheumatology consulted 12/2023, no rheumatoid arthritis Right ureteral calculus Depression Migraine Surgical History Hx of cholecystectomy H/O laparoscopy Family History Mother Substance use disorder Father No problems noted. Brother No problems noted. Brother No problems noted. Maternal Grandfather Heart disease Maternal Grandmother Heart disease Paternal Grandfather No problems noted. Paternal Grandmother No problems noted. Social History Smoking/Tobacco Use Status: Never Second Hand Exposure: Yes Smoking risk assessment performed?: Yes Alcohol Intake: current Alcohol Intake frequency: 3 or more drinks per day Alcohol type: wine and hard liquor Drug use: Daily Substance use type: marijuana Caregiver/Support person: No Household members: none Housing: apartment Communication Needs: None Do you need help understanding health information?: Never Pets and animals: Yes Pets and animals: dog(s) Sexually active: No Do you think of yourself as: straight/heterosexual Current gender identity: female What is your relationship status?: never How often do you talk on the phone with friends or family?: twice per week How often do you get together with friends or relatives?: once per week How often do you attend gnosticism or quaker services?: decline to answer Do you belong to any clubs or organized social groups?: no Panel score (0-1 are the most socially isolated patients): 1 What type of physical activity do you participate in: yoga Duration: 15-30 minutes/day Frequency: 3-4 times per week Mamie/Christianity: No preference Seatbelt use: sometimes Helmet use: No Drive intox or ride w/intox motor bus driver: No Do you feel safe at home: Yes Do you feel safe in your relationship?: Yes Additional Social history: lives alone Female Reproductive History Menstrual Age of Menarche: 12 Duration of menses: other control method: progesterone injection History History 0 Para Hx # Term Pregnancies Multiple births Hx # Pregnancies Ectopic pregnancies AB induced Hx Number of Living Children AB spontaneous
== END 2024-10-23 19:00 | disposition home or self-care (01) ==
PROVIDERS: Emergency Provider Emergency Medicine; PCP Nurse Practitioner Family
DX: K08.89 Other specified disorders of teeth and supporting structures (principal); K04.7 Periapical abscess without sinus
CPT/HCPCS: 99283

== ENCOUNTER 2024-11-28 13:49 | Outpatient (REF) | payer SELFPAY ==
[2024-11-28 21:50] LABS: Abs Immature Grans 0.02 10^3/uL (0.0-0.06); Absolute Basophil Count 0.06 10^3/uL (0.0-0.2); Absolute Eosinophil Count 0.16 10^3/uL (0.0-0.7); Absolute Lymphocyte Count 1.53 10^3/uL (1.2-3.4); Absolute Monocyte Count 0.56 10^3/uL (0.1-0.8); Absolute Neutrophil Count 6.03 10^3/uL (1.2-6.7); Basophils % 0.7 %; Eosinophils % 1.9 %; HCT 46.6 % (36.0-46.0); HGB 15.7 g/dL (11.2-15.7); Immature Grans % 0.2 %; Lymphocytes % 18.3 %; MCH 27.7 pg (27.0-33.0); MCHC 33.7 % (32.0-36.0); MCV 82 fL (80-95); MPV 10.5 fL (8.0-11.0); Monocytes % 6.7 %; Neutrophils % 72.2 %; Platelet Count 299 10^3/uL (130-400); RBC 5.66 10^6/uL (3.93-5.22); RDW-SD 36.1 fL; WBC 8.36 10^3/uL (4.4-10.8)
[2024-11-28 23:56] LABS: ALT 59 U/L (14-59); AST 29 U/L (15-37); Albumin 4.3 g/dL (3.4-5.0); Alkaline Phosphatase 159 U/L (46-116); Anion Gap 14.9 mmol/L (3-11); BUN 10 mg/dL (7-18); Bilirubin, Total 0.4 mg/dL (0.2-1.0); CO2 21.1 mmol/L (21.0-32.0); Chloride 105 mmol/L (98-107); Estimated GFR 78.21 (mL/min/1.73m2); Glucose 112 mg/dL (74-106); Potassium 4.3 mmol/L (3.5-5.1); Sodium 141 mmol/L (136-145); Total Protein 7.9 g/dL (6.4-8.2)
== END 2024-11-28 13:50 | disposition home or self-care (01) ==
LOC: LBN 13:49
PROVIDERS: PCP Nurse Practitioner Family; Visit Provider Nurse Practitioner Family
DX: R11.2 Nausea with vomiting, unspecified (principal); B34.9 Viral infection, unspecified
CPT/HCPCS: 80053; 85025

== ENCOUNTER 2024-12-10 13:00 | Emergency (ER) | payer SELFPAY ==
[2024-12-10 13:02] VITALS: BP 139/85; PULSE 101; RESP 18; TEMP 36.7; O2SAT 98
[2024-12-10 13:25] VITALS: BP 139/85; PULSE 101; RESP 18; TEMP 36.7; O2SAT 98
[2024-12-10 14:14] LABS: Abs Immature Grans 0.03 10^3/uL (0.0-0.06); HCT 44.4 % (36.0-46.0); HGB 15.0 g/dL (11.2-15.7); Immature Grans % 0.3 %; MCH 28.3 pg (27.0-33.0); MCHC 33.8 % (32.0-36.0); MCV 84 fL (80-95); MPV 10.1 fL (8.0-11.0); Platelet Count 329 10^3/uL (130-400); RBC 5.30 10^6/uL (3.93-5.22); RDW 12.2 % (11.7-14.6); RDW-SD 37.0 fL; WBC 8.70 10^3/uL (4.4-10.8)
[2024-12-10] MEDS: Ondansetron 4 MG/2 ML VIAL IVP (14:14)
[2024-12-10] MEDS: Normal Saline 1,000 ML 1000 ML IV (14:14)
[2024-12-10 14:27] LABS: Glucose Negative (Negative)
[2024-12-10 14:31] LABS: ALT 51 U/L (14-59); AST 31 U/L (15-37); Albumin 4.0 g/dL (3.4-5.0); Alkaline Phosphatase 150 U/L (46-116); Anion Gap 12.5 mmol/L (3-11); BUN 9 mg/dL (7-18); Bilirubin, Total 0.6 mg/dL (0.2-1.0); CO2 23.5 mmol/L (21.0-32.0); Calcium 9.7 mg/dL (8.5-10.1); Chloride 105 mmol/L (98-107); Estimated GFR 119.99 (mL/min/1.73m2); Glucose 87 mg/dL (74-106); Lipase 19 U/L (<78); Potassium 4.1 mmol/L (3.5-5.1); Sodium 141 mmol/L (136-145); Total Protein 7.9 g/dL (6.4-8.2)
--- NOTE | 2024-12-10 14:51 | DI.CT_ITS ---
Exam(s) CT ABDOMEN PELVIS WO EXAM: CT ABDOMEN PELVIS WO CLINICAL HISTORY: left flank pain. TECHNIQUE: Imaging Protocol: Axial computed tomography images with coronal and sagittal reformatted images were created and reviewed. Oral: / no COMPARISON: CT CT ABDOMEN PELVIS W from 04/10/2024 FINDINGS: Lung Bases: No acute findings. Liver: Enlarged. Hepatic steatosis. No suspicious mass. Gallbladder and biliary tract: Cholecystectomy. No radiodense calculus or biliary dilation. Pancreas: Normal density. No abnormal calcifications or inflammatory process. Spleen: Normal. Kidneys: Normal size, contour and axis. 3 millimeter nonobstructing stone at the lower pole of the left kidney. No obstructive uropathy. No suspicious masses seen. Adrenal glands: No masses seen. Lymph nodes: Within normal limits. Vasculature: Abdominal aorta non-dilated. Soft tissues: Unremarkable. Bladder: Nearly empty. No wall thickening. No mass or calculi. Bowel: No obstruction or bowel wall thickening. The appendix is normal. Normal quantity of stool Peritoneal cavity: No ascites. No focal collection. No mesenteric inflammatory response. Reproductive organs: Unremarkable. Bones: Unremarkable for age. IMPRESSION: 3 millimeter non-obstructing stone at the lower pole of the left kidney. No evidence of hydronephrosis. The bladder is unremarkable. RADIATION DOSE DELIVERED: Total DLP DATA REPOSITORY: All CT scans at this facility are submitted to the National Radiology Data Registry (NRDR) Dose Index Registry (DIR) with the [employer] (ACR). RADIATION OPTIMIZATION: All CT scans at this facility use at least one of these dose optimization techniques: automated exposure control; mA and/or kV adjustment per patient size (includes targeted exams where dose is matched to clinical indication); or iterative reconstruction.
[2024-12-10] MEDS: Ketorolac 15 MG/ML VIAL 10 MG IVP (15:25)
--- NOTE | 2024-12-10 16:42 | W.ED.GENAD ---
Discharge Plan Disposition Patient Disposition: Home Condition: Stable Discharge Details Clinical Impression: Abdominal pain Primary Care Provider: Jing Bishop ED Provider: Gregg Strickland Home Meds and New Rx's Prescriptions: New ondansetron 4 mg tablet,disintegrating 4 mg PO Q6H PRN (Reason: nausea and vomiting) Qty: 30 0RF No Action albuterol sulfate 90 mcg/actuation HFA aerosol inhaler 2 inh inhalation Q6H PRN (Reason: shortness of breath or wheezing) Qty: 18 4RF omeprazole 20 mg capsule,delayed release(DR/EC) 20 mg PO DAILY Qty: 90 1RF Discharge Instructions Instructions: Abdominal Pain, Adult ED Additional Instructions: Your lab work CT scan and urinalysis do not reveal any emergent conditions. You do have a 3 mm stone with in the left kidney, but this has not been expulsed into the ureteral system. Zofran has been sent to pharmacy to take as needed for nausea. Return to the emergency department if you develop worsening symptoms, fever, inability to tolerate anything by mouth. HPI General Date/Time Provider Initiated Documentation: 12/10/24 13:01. Limitations to Documentation: no limitations. Information obtained by: patient. HPI Narrative: 29-year-old female with past medical history of endometriosis, metabolic dysfunction associated liver disease presents for evaluation of left-sided abdominal pain. She reports onset of pain yesterday. Associated with nausea. Not having fever or diarrhea. Was evaluated by urgent care and sent to the ER Related Data Home Medications ?Medication ?Instructions ?Recorded ?Confirmed omeprazole 20 mg capsule,delayed 20 mg PO DAILY #90 caps 12/23/23 12/10/24 release albuterol sulfate 90 mcg/actuation 2 inh inhalation Q6H PRN shortness 02/13/24 12/10/24 aerosol inhaler of breath or wheezing #18 grams ondansetron 4 mg disintegrating 4 mg PO Q6H PRN nausea and 12/10/24 tablet vomiting #30 tabs Previous Rx's ?Medication ?Instructions ?Recorded omeprazole 20 mg capsule,delayed 20 mg PO DAILY #90 caps 12/23/23 release albuterol sulfate 90 mcg/actuation 2 inh inhalation Q6H PRN shortness 02/13/24 aerosol inhaler of breath or wheezing #18 grams ondansetron 4 mg disintegrating 4 mg PO Q6H PRN nausea and 12/10/24 tablet vomiting #30 tabs Allergies Allergy/AdvReac Type Severity Reaction Status Date / Time naproxen AdvReac Nausea Verified 12/10/24 13:09 tramadol AdvReac Hallucinati Verified 12/10/24 13:09 ons General Stated Complaint: Abd Prob SONDRA: 3 Exam Narrative Exam Narrative: Leilani she said because she always forgets or misses a except as noted in HPI and below Well-developed, no acute distress NCAT PERRL, normal conjunctiva RRR Unlabored respiratory effort Nondistended abdomen , Mild left lower quadrant abdominal pain guarding or rebound Extremities w/o deformity, no cyanosis, no edema No rashes or lesions. no focal neurologic deficits Appropriate mood and affect Course Vital Signs Vital signs: Vital Signs Temperature 36.7 C 12/10/24 13:02 Pulse 101 H 12/10/24 13:02 Respiratory Rate 18 12/10/24 13:02 Blood Pressure 139/85 12/10/24 13:02 Pulse Oximetry 98 12/10/24 13:02 Temperature 36.7 C 12/10/24 13:25 Temperature Source Oral 12/10/24 13:25 Pulse 101 H 12/10/24 13:25 Respiratory Rate 18 12/10/24 13:25 Blood Pressure 139/85 12/10/24 13:25 Blood Pressure Position Supine 12/10/24 13:25 Pulse Oximetry 98 12/10/24 13:25 Oxygen Delivery Method Room Air 12/10/24 13:25 Pain Level 4 12/10/24 15:25 Lab/Test Results Lab/Test Results: Laboratory Tests Range/Units 12/10/24 13:55 WBC (4.4-10.8) 10^3/uL 8.70 RBC (3.93-5.22) 10^6/uL 5.30 H Hgb (11.2-15.7) g/dL 15.0 Hct (36.0-46.0) % 44.4 MCV (80-95) fL 84 MCH (27.0-33.0) pg 28.3 MCHC (32.0-36.0) % 33.8 RDW (11.7-14.6) % 12.2 Plt Count (130-400) 10^3/uL 329 MPV (8.0-11.0) fL 10.1 Immature Gran % % 0.3 Neutrophils % % 65.4 Lymphocytes % % 24.3 Monocytes % % 7.2 Eosinophils % % 2.1 Basophils % % 0.7 Nucleated RBC % (0.0-0.3) % 0.0 Absolute Neutrophils (1.2-6.7) 10^3/uL 5.69 Absolute Lymphocytes (1.2-3.4) 10^3/uL 2.11 Absolute Monocytes (0.1-0.8) 10^3/uL 0.63 Absolute Eosinophils (0.0-0.7) 10^3/uL 0.18 Absolute Basophils (0.0-0.2) 10^3/uL 0.06 Sodium (136-145) mmol/L 141 Potassium (3.5-5.1) mmol/L 4.1 Chloride (98-107) mmol/L 105 Carbon Dioxide (21.0-32.0) mmol/L 23.5 Anion Gap (3-11) mmol/L 12.5 H BUN (7-18) mg/dL 9 Creatinine (0.55-1.02) mg/dL 0.7 Est GFR (CKD-EPI 2020) (mL/min/1.73m2) 119.99 Glucose (74-106) mg/dL 87 Calcium (8.5-10.1) mg/dL 9.7 Total Bilirubin (0.2-1.0) mg/dL 0.6 AST (15-37) U/L 31 ALT (14-59) U/L 51 Alkaline Phosphatase (46-116) U/L 150 H Total Protein (6.4-8.2) g/dL 7.9 Albumin (3.4-5.0) g/dL 4.0 Lipase (<78) U/L 19 Urine Color (Yellow) Yellow Urine Clarity (Clear) Clear Urine pH (5-8) 6.5 Ur Specific [place] (1.005-1.025) 1.025 Urine Protein (Neg-Trace) mg/dL Negative Urine Ketones (Negative) mg/dL Negative Urine Blood (Negative) Negative Urine Nitrite (Negative) Negative Urine Bilirubin (Negative) Negative Urine Urobilinogen (Up to 0.2) mg/dL 0.2 Ur Leukocyte Esterase (Negative) Negative Urine Glucose (Negative) mg/dL Negative POC- Test(urine) Negative Medical Decision Making Emergent evaluation of abdominal pain. Patient has some mild tenderness on examination. Initial differential includes renal colic, UTI, colitis. Labs urinalysis and CT ordered. Lab work reviewed no leukocytosis or anemia, no electrolyte derangement. Mild elevation in anion gap but no ketones to suggest any significant dehydration. Normal renal function. Urinalysis does not demonstrate any hematuria or infection CT scan reviewed. There is no evidence of acute abnormality. There is a 3 mm stone with in the kidney on the left, but this should not be causing her pain symptoms. Advised her of these findings, on reevaluation after Toradol, the patient reports resolution of symptoms she is feeling much better and she is tolerating p.o. Advised close monitoring of symptoms and return precautions were discussed with the patient. A prescription for Zofran was sent to the pharmacy. Discharged in good condition [facility] All Active Problems (Updated 12/10/24 @ 16:08 by Gregg Strickland MD) Abdominal pain (Acute) Metabolic dysfunction-associated steatotic liver disease (MASLD) (Chronic) Multiple food allergies (Acute) Endometriosis (Chronic) Abnormal uterine bleeding (Chronic) on depo for cycle control Asthma (Chronic) GERD (gastroesophageal reflux disease) (Chronic) Obesity (Chronic) Nausea and vomiting (Chronic) Vaginismus (Chronic) Significant pain with speculum exams. On Depo-Provera for contraception (Chronic) 07/27/24. New job makes commuting for Depo problematic. Pt will have LNG IUD inserted Chronic low back pain (Chronic) Chronic joint pain (Chronic) Plantar fasciitis of left foot (Acute) Medical History Elevated rheumatoid factor [facility] Rheumatology consulted 12/2023, no rheumatoid arthritis Right ureteral calculus Depression Migraine Surgical History Hx of cholecystectomy H/O laparoscopy Family History Mother Substance use disorder Father No problems noted. Brother No problems noted. Brother No problems noted. Maternal Grandfather Heart disease Maternal Grandmother Heart disease Paternal Grandfather No problems noted. Paternal Grandmother No problems noted. Social History Smoking/Tobacco Use Status: Never Second Hand Exposure: Yes Smoking risk assessment performed?: Yes Alcohol Intake: current Alcohol Intake frequency: a few times a month Alcohol type: wine and hard liquor Drug use: Daily Substance use type: marijuana Caregiver/Support person: No Household members: none Housing: apartment Communication Needs: None Do you need help understanding health information?: Never Pets and animals: Yes Pets and animals: dog(s) Sexually active: No Do you think of yourself as: straight/heterosexual Current gender identity: female What is your relationship status?: never How often do you talk on the phone with friends or family?: twice per week How often do you get together with friends or relatives?: once per week How often do you attend mandaeism or caodaism services?: decline to answer Do you belong to any clubs or organized social groups?: no Panel score (0-1 are the most socially isolated patients): 1 What type of physical activity do you participate in: yoga Duration: 15-30 minutes/day Frequency: 3-4 times per week Mamie/Caodaism: No preference Seatbelt use: sometimes Helmet use: No Drive intox or ride w/intox driver license examiner: No Do you feel safe at home: Yes Do you feel safe in your relationship?: Yes Additional Social history: lives alone Female Reproductive History Menstrual Age of Menarche: 12 Duration of menses: other control method: progesterone injection History History 0 Para Hx # Term Pregnancies Multiple births Hx # Pregnancies Ectopic pregnancies AB induced Hx Number of Living Children AB spontaneous PAWSS Have you Been Recently Intoxicated or Drunk Within the Last 30 days?: No Have you Ever Experienced Previous Episodes of Alcohol Withdrawal?: No Have you ever Experienced Withdrawal Seizures?: No Have you ever Experienced Delirium Tremens(DT)s?: No Have you ever undergone Alcohol Rehabilitation Treatment (i.e, inpt ot outpatient treatment programs)?: No Have you ever Experienced Blackouts?: No Have you ever Combined Alcohol with other Downers within the last 90 days?: No Have you ever Combined Alcohol with any other Substance of Abuse during the last 90 days?: No Positive Blood Alcohol level on Presentation? [PCS.BAL]: No Evidence of Increased Autonomic Activity (i.e. HR>120, tremor, sweating, agitation, nausea)?: No Result: 0
[2024-12-10 16:54] VITALS: BP 99/62; PULSE 78; RESP 18; O2SAT 100
== END 2024-12-10 16:57 | disposition home or self-care (01) ==
PROVIDERS: Emergency Provider Emergency Medicine; PCP Nurse Practitioner Family
DX: R10.32 Left lower quadrant pain (principal); N20.0 Calculus of kidney; K75.81 Nonalcoholic steatohepatitis (NASH)
CPT/HCPCS: 80053; 81025; 83690; 96361; 96374; 96375; 99284; 74176; 81003; 85025; J1885; J2405

== ENCOUNTER 2025-02-08 08:28 | Emergency (ER) | payer SELFPAY ==
[2025-02-08] VITALS (73 sets, daily range): BP systolic 100–128; BP diastolic 59–87; PULSE 55–88; RESP 11–28; TEMP 36.9; O2SAT 95–99
--- NOTE | 2025-02-08 08:15 | RT.EKG_ITS ---
APPROVED REPORT Exam: Resting ECG Reason for Exam: chest pain Patient Location: E HR:71 bpm ECG Measurements Heart Rate 71 AXIS AR 136 P 24 QRSd 78 QRS 1 QT 413 T 20 QTc 450 Conclusion Sinus rhythm...normal P axis, V-rate 60- 99 Low voltage, precordial leads...precordial leads <1.0mV
--- NOTE | 2025-02-08 08:45 | DI.CT_ITS ---
Exam(s) CT CHEST PE CTA EXAM: CT CHEST PE CTA CLINICAL HISTORY: Chest pain concern for PE. TECHNIQUE: Imaging Protocol: Axial CT angiography was performed with multi- slice acquisition and multi-planar reconstructions as well as axial, coronal and sagittal MIP reconstructions. Computer aided detection (CAD) was utilized. CONTRAST MATERIAL: Intravenous: Omnipaque 350 Contrast volume:70 ml COMPARISON: CR,XR XR PORTABLE CHEST AP from 11/30/[address] ABDOMEN PELVIS WO from 12/10/2024 FINDINGS: Pulmonary Arteries: No evidence of filling defect to suggest pulmonary emboli. Mediastinum and Alia: No dominant adenopathy or fluid collection. Pulmonary parenchyma: No consolidation or dominant measurable mass. Expiratory changes. Pleura: No effusion or pneumothorax. Heart: The heart is not dilated. No coronary artery calcifications are seen. Aorta: Thoracic aorta non-dilated. No dissection. Upper abdomen: No acute findings. Hepatic steatosis. Cholecystectomy. Bones: Unremarkable for age. Tubes, Catheters, and Lines: None Soft tissues: Unremarkable. IMPRESSION: No evidence of pulmonary embolism or other acute abnormality. RADIATION DOSE DELIVERED: Total DLP DATA REPOSITORY: All CT scans at this facility are submitted to the National Radiology Data Registry (NRDR) Dose Index Registry (DIR) with the [employer] (ACR). RADIATION OPTIMIZATION: All CT scans at this facility use at least one of these dose optimization techniques: automated exposure control; mA and/or kV adjustment per patient size (includes targeted exams where dose is matched to clinical indication); or iterative reconstruction.
[2025-02-08] MEDS: Omnipaque 350 MG/ML 500 ML BTL-Imaging package IJ (09:14)
[2025-02-08 09:32] LABS: Abs Immature Grans 0.03 10^3/uL (0.0-0.06); HCT 43.6 % (36.0-46.0); HGB 14.6 g/dL (11.2-15.7); Immature Grans % 0.3 %; MCH 28.0 pg (27.0-33.0); MCHC 33.5 % (32.0-36.0); MCV 84 fL (80-95); MPV 10.6 fL (8.0-11.0); RBC 5.21 10^6/uL (3.93-5.22); RDW 11.9 % (11.7-14.6); RDW-SD 35.9 fL; WBC 9.00 10^3/uL (4.4-10.8)
[2025-02-08 09:35] LABS: Platelet Count 272 10^3/uL (130-400)
[2025-02-08] MEDS: Lactated Ringers 500 ML 1000 ML IV (10:11)
[2025-02-08 10:18] LABS: ALT 58 U/L (14-59); AST 31 U/L (15-37); Albumin 3.6 g/dL (3.4-5.0); Alkaline Phosphatase 136 U/L (46-116); Anion Gap 9.4 mmol/L (3-11); BUN 10 mg/dL (7-18); Bilirubin, Total 0.5 mg/dL (0.2-1.0); CO2 24.6 mmol/L (21.0-32.0); Calcium 9.9 mg/dL (8.5-10.1); Chloride 106 mmol/L (98-107); Estimated GFR 102.22 (mL/min/1.73m2); Glucose 103 mg/dL (74-106); Lipase 20 U/L (<78); Potassium 3.9 mmol/L (3.5-5.1); Sodium 140 mmol/L (136-145); Total Protein 7.5 g/dL (6.4-8.2); Troponin I < 4 ng/L (<or=51)
[2025-02-08 11:12] LABS: Troponin I 4 ng/L (<or=51)
--- NOTE | 2025-02-08 11:16 | ED.GENADUL_ITS ---
Discharge Plan Disposition Patient Disposition: Home Condition: Stable Discharge Details Clinical Impression: Chest pain Primary Care Provider: Jing Bishop ED Provider: Hugo Alberto Home Meds and New Rx's Prescriptions: Continued albuterol sulfate 90 mcg/actuation HFA aerosol inhaler 2 inh inhalation Q6H PRN (Reason: shortness of breath or wheezing) Qty: 18 4RF omeprazole 20 mg capsule,delayed release(DR/EC) 20 mg PO DAILY Qty: 90 1RF ondansetron 4 mg tablet,disintegrating 4 mg PO Q6H PRN (Reason: nausea and vomiting) Qty: 30 0RF No Action acetaminophen [Tylenol] 325 mg tablet 975 mg PO ONCE PRNQty: 60 0RF ibuprofen 600 mg tablet 600 mg PO Q6H PRNQty: 30 0RF cyclobenzaprine 5 mg tablet 5 mg PO TID PRNQty: 30 0RF Discharge Instructions Instructions: Chest Pain, Adult ED Additional Instructions: Please take ibuprofen 600 mg by mouth every 8 hours while awake over the next week. Please follow-up with your primary care physician. Call today to arrange timely follow-up for next week. Please do not operate heavy machinery or drive motor vehicle until cleared by your doctor and reassessment. Please drink plenty of fluids to stay hydrated and allow for plenty of rest over the next few days. Return to the emergency department immediately for any worsening or new concerning symptoms. Referrals: Jing Bishop, MARIN [Primary Care Provider, Medicine] Discharge Data Discharge Date/Time-TO BE ENTERED AT DEPARTURE: 02/08/25 13:43 HPI General Mode of arrival: ambulatory . Date/Time Provider Initiated Documentation: 02/08/25 08:29 . Limitations to Documentation: no limitations . Information obtained by: patient . HPI Narrative: HISTORY OF PRESENT ILLNESS 29-year-old female with sharp chest pain since yesterday morning, rated 4/10, escalating to 6-7/10 with exertion. Associated with two episodes of emesis and syncope. No similar past incidents. Pain constant, not exacerbated by deep breaths. No fever, chills, cough, trouble breathing, abdominal pain, or swelling. Seen at another hospital yesterday; EKGs ruled out heart attack. Given fluids for nausea, discharged home. No chest x-ray or echocardiogram performed. Reports severe headaches and allergies over the past few weeks. Uses pot gummies for sleep. Discontinued pain medication for back arthritis due to loss of insurance, prioritizing GERD treatment. Reports dizziness and fainting twice yesterday around 1100 hours. Woke up dizzy today, had to sit down after standing due to impending fainting. Experiences knee pain and occasional charley horses. Related Data Home Medications ?Medication ?Instructions ?Recorded ?Confirmed omeprazole 20 mg capsule,delayed 20 mg PO DAILY #90 ca ps 12/23/23 02/12/25 release albuterol sulfate 90 mcg/actuation 2 inh inhalation Q6 H PRN shortness 02/13/24 02/12/25 aerosol inhaler of breath or wheezing #18 gr ams ondansetron 4 mg disintegrating 4 mg PO Q6H PRN nausea and 12/10/24 02/12/25 tablet vomiting #30 tabs acetaminophen 325 mg tablet 975 mg (3 x 325 mg) PO ONC E PRN 02/12/25 (Tylenol) #60 tabs cyclobenzaprine 5 mg tablet 5 mg PO TID PRN #30 tabs 0 02/12/25 ibuprofen 600 mg tablet 600 mg PO Q6H PRN #30 tabs 0 02/12/25 Previous Rx's ?Medication ?Instructions ?Recorded omeprazole 20 mg capsule,delayed 20 mg PO DAILY #90 ca ps 12/23/23 release albuterol sulfate 90 mcg/actuation 2 inh inhalation Q6 H PRN shortness 02/13/24 aerosol inhaler of breath or wheezing #18 gr ams ondansetron 4 mg disintegrating 4 mg PO Q6H PRN nausea and 12/10/24 tablet vomiting #30 tabs acetaminophen 325 mg tablet 975 mg (3 x 325 mg) PO ONC E PRN 02/12/25 (Tylenol) #60 tabs cyclobenzaprine 5 mg tablet 5 mg PO TID PRN #30 tabs 0 02/12/25 ibuprofen 600 mg tablet 600 mg PO Q6H PRN #30 tabs 0 02/12/25 Allergies Allergy/AdvReac Type Severity Reaction Status Date / Time naproxen AdvReac Nausea Verified 02/12/25 10:05 tramadol AdvReac Hallucinati Verified 02/12/25 10:05 ons General Stated Complaint: Chest Pain SONDRA: 3 Review of Systems All systems reviewed & are unremarkable except as noted in HPI and below Constitutional Constitutional: Denies fever(s) Exam Const General: cooperative and no acute distress HENMT Mouth: moist mucous membranes Eyes Conjunctivae: normal conjunctivae Sclera: normal sclerae Neck Neck: trachea midline Resp Auscultation: clear to auscultation bilaterally, no rales, no rhonchi and no wheezes Cardio Rate: regular rate and not tachycardic Rhythm: regular rhythm GI Palpation: soft, not firm, no guarding, no masses, not rigid and nontender Skin General skin exam: no rashes or lesions noted Neuro General: patient alert, patient awake, patient oriented x3 and tone normal Extrem General: no edema Psych Appearance: grossly normal Mental Status: mental status grossly normal Course Vital Signs Vital signs: Vital Signs Temperature 36.9 C 02/08/25 08:32 Pulse 72 02/08/25 08:32 Respiratory Rate 16 02/08/25 08:32 Blood Pressure 114/69 02/08/25 08:32 Pulse Oximetry 98 02/08/25 08:32 Temperature 36.9 C 02/08/25 08:32 Temperature Source Oral 02/08/25 08:32 Pulse 66 02/08/25 10:06 Pulse 72 02/08/25 09:40 Respiratory Rate 24 02/08/25 09:40 Respiratory Effort Normal, Non-Labored 02/08/25 08:42 Respiratory Depth Normal 02/08/25 08:42 Respiratory Pattern Normal 02/08/25 08:42 Blood Pressure 116/68 02/08/25 10:06 Blood Pressure Mean 75 02/08/25 09:03 Pulse Oximetry 95 02/08/25 08:50 Oxygen Delivery Method Aerosol Mask 02/08/25 08:32 Oxygen Flow Rate 0 02/08/25 08:32 Pain Level 4 02/08/25 08:32 Lab/Test Results Lab/Test Results: Laboratory Tests Range/Units 02/08/25 02/08/25 09:10 09:35 WBC (4.4-10.8) 10^3/uL 9.00 RBC (3.93-5.22) 10^6/uL 5.21 Hgb (11.2-15.7) g/dL 14.6 Hct (36.0-46.0) % 43.6 MCV (80-95) fL 84 MCH (27.0-33.0) pg 28.0 MCHC (32.0-36.0) % 33.5 RDW (11.7-14.6) % 11.9 Plt Count (130-400) 10^3/uL 272 MPV (8.0-11.0) fL 10.6 Immature Gran % % 0.3 Neutrophils % % 67.5 Lymphocytes % % 23.6 Monocytes % % 5.8 Eosinophils % % 2.1 Basophils % % 0.7 Nucleated RBC % (0.0-0.3) % 0.0 Absolute Neutrophils (1.2-6.7) 10^3/uL 6.08 Absolute Lymphocytes (1.2-3.4) 10^3/uL 2.12 Absolute Monocytes (0.1-0.8) 10^3/uL 0.52 Absolute Eosinophils (0.0-0.7) 10^3/uL 0.19 Absolute Basophils (0.0-0.2) 10^3/uL 0.06 Sodium Cancelled 140 Potassium Cancelled 3.9 Chloride Cancelled 106 Carbon Dioxide Cancelled 24.6 Anion Gap Cancelled 9.4 BUN Cancelled 10 Creatinine Cancelled 0.8 Est GFR (CKD-EPI 2020) Cancelled 102.22 Glucose Cancelled 103 Calcium Cancelled 9.9 Total Bilirubin Cancelled 0.5 AST Cancelled 31 ALT Cancelled 58 Alkaline Phosphatase Cancelled 136 H Troponin I Cancelled < 4 Total Protein Cancelled 7.5 Albumin Cancelled 3.6 Lipase Cancelled 20 Medical Decision Making ASSESSMENT AND PLAN Initial Assessment: 29-year-old female with chest pain, dizziness, and syncope. Pain worsens with physical activity but not with deep breaths. Family history of heart attacks. Patient hemodynamically stable. Saturating well in no respiratory distress. Differential Diagnosis: Acute pulmonary embolism, ACS, musculoskeletal pain, pericarditis, myocarditis, arrhythmia. EKG was reviewed and interpreted by me: Please report, sinus rhythm 71 bpm, normal axis, nondiagnostic. Low voltage noted. ED Course: Orthostatic vital signs checked and within normal limits. Intravenous fluids administered. CT scan of the chest was interpreted by radiology:No evidence of pulmonary embolism or other acute abnormality. POCUS was performed and showed no pericardial effusion. Initial troponin and second delta troponin negative and unchanged. Considered pericarditis as well as esophagitis. Patient was given Toradol IV. She was given Pepcid IV. On reassessment by nursing patient had significant improvement in chest discomfort after medication. Patient stable and requesting discharge. All results were discussed with the patient. Final Assessment: 29-year-old female presenting with chest discomfort that started yesterday and has been persistent as well as episode of dizziness with brief loss of consciousness yesterday. Patient was evaluated outside hospital ED yesterday and had nondiagnostic workup and was discharged home in stable condition. She continued to have symptoms overnight and returned today for reassessment. After prolonged ED observation on monitor technician with comprehensive diagnostic workup, no concerning findings on labs or CT imaging. Patient improved after Toradol and Pepcid. Given description of pain I am concerned about pericarditis versus esophagitis. Plan for discharge with close outpatient follow-up with consideration for outpatient cardiac monitoring. Patient stable and requesting discharge. Clinical Impression: Chest pain, dizziness, and syncope. This document was written with the assistance of MATHEW Mendez. The patient consented to its use. Lab Data Lab results reviewed: Yes I reviewed the patient's lab results. Labs: Laboratory Tests Range/Units 02/08/25 02/08/25 02/08/25 09:10 09:35 10:37 WBC (4.4-10.8) 10^3/uL 9.00 RBC (3.93-5.22) 10^6/uL 5.21 Hgb (11.2-15.7) g/dL 14.6 Hct (36.0-46.0) % 43.6 MCV (80-95) fL 84 MCH (27.0-33.0) pg 28.0 MCHC (32.0-36.0) % 33.5 RDW (11.7-14.6) % 11.9 Plt Count (130-400) 10^3/uL 272 MPV (8.0-11.0) fL 10.6 Immature Gran % % 0.3 Neutrophils % % 67.5 Lymphocytes % % 23.6 Monocytes % % 5.8 Eosinophils % % 2.1 Basophils % % 0.7 Nucleated RBC % (0.0-0.3) % 0.0 Absolute Neutrophils (1.2-6.7) 10^3/uL 6.08 Absolute Lymphocytes (1.2-3.4) 10^3/uL 2.12 Absolute Monocytes (0.1-0.8) 10^3/uL 0.52 Absolute Eosinophils (0.0-0.7) 10^3/uL 0.19 Absolute Basophils (0.0-0.2) 10^3/uL 0.06 Sodium Cancelled 140 Potassium Cancelled 3.9 Chloride Cancelled 106 Carbon Dioxide Cancelled 24.6 Anion Gap Cancelled 9.4 BUN Cancelled 10 Creatinine Cancelled 0.8 Est GFR (CKD-EPI 2020) Cancelled 102.22 Glucose Cancelled 103 Calcium Cancelled 9.9 Total Bilirubin Cancelled 0.5 AST Cancelled 31 ALT Cancelled 58 Alkaline Phosphatase Cancelled 136 H Troponin I Cancelled < 4 4 Total Protein Cancelled 7.5 Albumin Cancelled 3.6 Lipase Cancelled 20 PFSH All Active Problems (Updated 02/12/25 @ 10:51 by Adam Moore MD) Costochondritis (Acute) Atypical chest pain (Acute) Chest pain (Acute) Metabolic dysfunction-associated steatotic liver disease (MASLD) (Chronic) Multiple food allergies (Acute) Endometriosis (Chronic) Abnormal uterine bleeding (Chronic) on depo for cycle control Asthma (Chronic) GERD (gastroesophageal reflux disease) (Chronic) Obesity (Chronic) Nausea and vomiting (Chronic) Vaginismus (Chronic) Significant pain with speculum exams. On Depo-Provera for contraception (Chronic) 07/27/24. New job makes commuting for Depo problematic. Pt will have LNG IUD inserted Chronic low back pain (Chronic) Chronic joint pain (Chronic) Plantar fasciitis of left foot (Acute) Medical History Elevated rheumatoid factor [facility] Rheumatology consulted 12/2023, no rheumatoid arthritis Right ureteral calculus Depression Migraine Surgical History Hx of cholecystectomy H/O laparoscopy Family History Mother Substance use disorder Father No problems noted. Brother No problems noted. Brother No problems noted. Maternal Grandfather Heart disease Maternal Grandmother Heart disease Paternal Grandfather No problems noted. Paternal Grandmother No problems noted. Social History Smoking/Tobacco Use Status: Never Second Hand Exposure: Yes Smoking risk assessment performed?: Yes Alcohol Intake: current Alcohol Intake frequency: holidays/special occasions only Alcohol type: wine and hard liquor Drug use: Daily Substance use type: marijuana Details: THC gummies to sleep Caregiver/Support person: No Household members: none Housing: apartment Communication Needs: None Do you need help understanding health information?: Never Pets and animals: Yes Pets and animals: dog(s) Sexually active: No Do you think of yourself as: straight/heterosexual Current gender identity: female What is your relationship status?: never How often do you talk on the phone with friends or family?: twice per week How often do you get together with friends or relatives?: once per week How often do you attend episcopalian or christianity services?: decline to answer Do you belong to any clubs or organized social groups?: no Panel score (0-1 are the most socially isolated patients): 1 What type of physical activity do you participate in: yoga Duration: 15-30 minutes/day Frequency: 3-4 times per week Mamie/Restoration: No preference Seatbelt use: sometimes Helmet use: No Drive intox or ride w/intox hazmat tanker driver: No Do you feel safe at home: Yes Do you feel safe in your relationship?: Yes Additional Social history: lives alone Female Reproductive History Menstrual Age of Menarche: 12 Duration of menses: other control method: progesterone injection History History 0 Para Hx # Term Pregnancies Multiple births Hx # Pregnancies Ectopic pregnancies AB induced Hx Number of Living Children AB spontaneous PAWSS Have you Been Recently Intoxicated or Drunk Within the Last 30 days?: No Have you Ever Experienced Previous Episodes of Alcohol Withdrawal?: No Have you ever Experienced Withdrawal Seizures?: No Have you ever Experienced Delirium Tremens(DT)s?: No Have you ever undergone Alcohol Rehabilitation Treatment (i.e, inpt ot ou tpatient treatment programs)?: No Have you ever Experienced Blackouts?: No Have you ever Combined Alcohol with other Downers within the last 90 days?: No Have you ever Combined Alcohol with any other Substance of Abuse during the last 90 days?: No Result: 0
[2025-02-08] MEDS: Famotidine 20 MG/2 ML VIAL IVP (12:19)
[2025-02-08] MEDS: Ketorolac 30 MG/ML VIAL IVP (12:20)
== END 2025-02-08 13:43 | disposition home or self-care (01) ==
PROVIDERS: Emergency Provider Student in an Organized Health Care Education/Training Program; PCP Nurse Practitioner Family
DX: R07.9 Chest pain, unspecified (principal); R55 Syncope and collapse
CPT/HCPCS: 36415; 71275; 80053; 83690; 93005; 96374; 96375; 84484; 85025; 93010; 99284; 99285; J1885

== ENCOUNTER 2025-02-12 09:47 | Emergency (ER) | payer SELFPAY ==
--- NOTE | 2025-02-12 09:45 | RT.EKG_ITS ---
APPROVED REPORT Exam: Resting ECG Reason for Exam: chest pain Patient Location: E HR:67 bpm ECG Measurements Heart Rate 67 AXIS AL 135 P 23 QRSd 78 QRS -7 QT 402 T 18 QTc 425 Conclusion Sinus rhythm...normal P axis, V-rate 60- 99 Low voltage, precordial leads...precordial leads <1.0mV No STEMI
[2025-02-12 09:52] VITALS: BP 99/68; PULSE 65; RESP 20; O2SAT 96
[2025-02-12 10:06] VITALS: RESP 15
[2025-02-12] MEDS: Acetaminophen 500 MG TAB 1000 MG PO (10:38)
[2025-02-12] MEDS: oxyCODONE 5 MG TAB PO (10:38)
--- NOTE | 2025-02-12 10:47 | W.ED.GENAD ---
Discharge Plan Disposition Patient Disposition: Home Discharge Details Clinical Impression: Atypical chest pain, Costochondritis Primary Care Provider: Jing Bishop ED Provider: Adam Moore Home Meds and New Rx's Prescriptions: New acetaminophen [Tylenol] 325 mg tablet 975 mg PO ONCE PRNQty: 60 0RF ibuprofen 600 mg tablet 600 mg PO Q6H PRNQty: 30 0RF cyclobenzaprine 5 mg tablet 5 mg PO TID PRNQty: 30 0RF Continued albuterol sulfate 90 mcg/actuation HFA aerosol inhaler 2 inh inhalation Q6H PRN (Reason: shortness of breath or wheezing) Qty: 18 4RF omeprazole 20 mg capsule,delayed release(DR/EC) 20 mg PO DAILY Qty: 90 1RF ondansetron 4 mg tablet,disintegrating 4 mg PO Q6H PRN (Reason: nausea and vomiting) Qty: 30 0RF Discharge Instructions Instructions: Costochondritis, Chest Pain, Adult ED Additional Instructions: Please follow-up with your primary care provider regarding your visit to the emergency department today. Be sure to discuss results of all test performed here today to include radiology, and laboratory testing as well as results for any pending cultures. Also discussed the possibility of outpatient cardiac monitoring, echocardiogram for further workup of your reported syncopal event. Should your symptoms worsen, or if you develop new concerning symptoms, please return immediately emergency department for further evaluation. Stand Alone Forms: Work Release HPI General Date/Time Provider Initiated Documentation: 02/12/25 09:51. HPI Narrative: MDM/Narrative: 29-year-old female with chest pain. Previous ED visit on 02/08/2025; negative CT chest PE study, troponins, and EKG. Differential Diagnosis: - Costochondritis: Suspected due to recent viral infection and exam findings. - Pericarditis: Unlikely, this was a previous differential diagnosis, no EKG changes, no pericardial effusion on POCUS. Clinical Impression: - Costochondritis Discharge: Home. Return if symptoms worsen or new symptoms develop. Follow-Up: PCP for further evaluation and management. Patient Education: Discussed potential viral-related chest pain, costochondritis, and pericarditis. Encouraged to follow-up with previously scheduled outpatient PCP visit for further evaluation of chest pain and syncope, advised on pain management strategies. This document was created with assistance from [employer]. The patient consented to its use. HPI: The patient is a 29-year-old female presenting with thoracic pain. She was evaluated on 02/08/2025 in the emergency department for similar complaints, where a CT chest study for pulmonary embolism, troponin levels, and electrocardiogram (EKG) results were negative. The patient reports experiencing chest pain and pressure since last , which escalated to vomiting and syncope at work. A hospital in [place] ruled out myocardial infarction and advised follow-up with her primary care physician. She was diagnosed with pericarditis and prescribed ibuprofen, which provided partial relief. The pain has since evolved into a stabbing sensation in the mid-chest, exacerbated by physical exertion and stress, and persists even at rest. There is no associated nausea, vomiting (except for one episode), hematemesis, bilious vomiting, fever, or chills. She took ibuprofen at 0600 hours today without experiencing gastrointestinal discomfort. The pain is constant, occasionally subsiding to a sensation of pressure. The patient has a history of gastroesophageal reflux disease (GERD), which is well-managed with daily omeprazole. 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 She reports myalgia, arthralgia, and suspected fibromyalgia. Her last menstrual period was 2-3 years ago, and she discontinued Depo-Provera in July 2024. She does not believe the pain is related to menstruation. The patient has experienced nasal congestion, cough, and upper respiratory congestion for 1.5 weeks, which she attributes to allergies. She occasionally experiences leg edema, with significant ankle swelling following heavy lifting. 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 PAST SURGICAL HISTORY: The patient has undergone two surgeries for nephrolithiasis, cholecystectomy in 2018, and exploratory surgery for endometriosis. ROS: Negative besides as mentioned above Exam: Vital signs: Reviewed. General Appearance: Alert and oriented. No acute distress. HEENT: NCAT, EOMI, not icteric. External ears normal. No rhinorrhea. Moist mucous membranes. Neck: Supple, full range of motion, no observable masses, No meningeal sign. Respiratory: No Respiratory distress. No tachypnea. Cardiovascular: RRR, no edema. Chest: Reproducible pain to palpation of the xiphoid process. Significant discomfort with forced retraction of the elbows Gastrointestinal: Abdomen non-tender. Back: No midline tenderness to palpation or palpable step-offs of the C/T/L spine. Musculoskeletal: Pain with elbow movement, possible costochondritis. Skin: Warm and dry, no rash. Neurological: Normal Gait, Grossly intact. Psychiatric: Appropriate for situation. Rhythm: NSR Rate: 67 [place]: Normal axis Intervals: Normal intervals Other findings: No acute ST segment or T wave changes to suggest acute ischemia. Related Data Home Medications ?Medication ?Instructions ?Recorded ?Confirmed omeprazole 20 mg capsule,delayed 20 mg PO DAILY #90 caps 12/23/23 02/12/25 release albuterol sulfate 90 mcg/actuation 2 inh inhalation Q6H PRN shortness 02/13/24 02/12/25 aerosol inhaler of breath or wheezing #18 grams ondansetron 4 mg disintegrating 4 mg PO Q6H PRN nausea and 12/10/24 02/12/25 tablet vomiting #30 tabs acetaminophen 325 mg tablet 975 mg (3 x 325 mg) PO ONCE PRN 02/12/25 (Tylenol) #60 tabs cyclobenzaprine 5 mg tablet 5 mg PO TID PRN #30 tabs 02/12/25 ibuprofen 600 mg tablet 600 mg PO Q6H PRN #30 tabs 02/12/25 Previous Rx's ?Medication ?Instructions ?Recorded omeprazole 20 mg capsule,delayed 20 mg PO DAILY #90 caps 12/23/23 release albuterol sulfate 90 mcg/actuation 2 inh inhalation Q6H PRN shortness 02/13/24 aerosol inhaler of breath or wheezing #18 grams ondansetron 4 mg disintegrating 4 mg PO Q6H PRN nausea and 12/10/24 tablet vomiting #30 tabs acetaminophen 325 mg tablet 975 mg (3 x 325 mg) PO ONCE PRN 02/12/25 (Tylenol) #60 tabs cyclobenzaprine 5 mg tablet 5 mg PO TID PRN #30 tabs 02/12/25 ibuprofen 600 mg tablet 600 mg PO Q6H PRN #30 tabs 02/12/25 Allergies Allergy/AdvReac Type Severity Reaction Status Date / Time naproxen AdvReac Nausea Verified 02/12/25 10:05 tramadol AdvReac Hallucinati Verified 02/12/25 10:05 ons General Stated Complaint: Chest Pain SONDRA: 2 Course Vital Signs Vital signs: Vital Signs Pulse 65 02/12/25 09:52 Respiratory Rate 20 02/12/25 09:52 Blood Pressure 99/68 L 02/12/25 09:52 Pulse Oximetry 96 02/12/25 09:52 Pulse 65 02/12/25 09:52 Respiratory Rate 15 02/12/25 10:06 Respiratory Effort Short of Breath 02/12/25 10:06 Respiratory Depth Normal 02/12/25 10:06 Respiratory Pattern Normal 02/12/25 10:06 Blood Pressure 99/68 L 02/12/25 09:52 Blood Pressure Position Sitting 02/12/25 09:52 Pulse Oximetry 96 02/12/25 09:52 Oxygen Delivery Method Room Air 02/12/25 09:52 Oxygen Flow Rate 0 02/12/25 09:52 Pain Level 6 02/12/25 10:38 PFSH All Active Problems (Updated 02/12/25 @ 10:51 by Adam Moore MD) Costochondritis (Acute) Atypical chest pain (Acute) Chest pain (Acute) Metabolic dysfunction-associated steatotic liver disease (MASLD) (Chronic) Multiple food allergies (Acute) Endometriosis (Chronic) Abnormal uterine bleeding (Chronic) on depo for cycle control Asthma (Chronic) GERD (gastroesophageal reflux disease) (Chronic) Obesity (Chronic) Nausea and vomiting (Chronic) Vaginismus (Chronic) Significant pain with speculum exams. On Depo-Provera for contraception (Chronic) 07/27/24. New job makes commuting for Depo problematic. Pt will have LNG IUD inserted Chronic low back pain (Chronic) Chronic joint pain (Chronic) Plantar fasciitis of left foot (Acute) Medical History Elevated rheumatoid factor [facility] Rheumatology consulted 12/2023, no rheumatoid arthritis Right ureteral calculus Depression Migraine Surgical History Hx of cholecystectomy H/O laparoscopy Family History Mother Substance use disorder Father No problems noted. Brother No problems noted. Brother No problems noted. Maternal Grandfather Heart disease Maternal Grandmother Heart disease Paternal Grandfather No problems noted. Paternal Grandmother No problems noted. Social History Smoking/Tobacco Use Status: Never Second Hand Exposure: Yes Smoking risk assessment performed?: Yes Alcohol Intake: current Alcohol Intake frequency: holidays/special occasions only Alcohol type: wine and hard liquor Drug use: Daily Substance use type: marijuana Details: THC gummies to sleep Caregiver/Support person: No Household members: none Housing: apartment Communication Needs: None Do you need help understanding health information?: Never Pets and animals: Yes Pets and animals: dog(s) Sexually active: No Do you think of yourself as: straight/heterosexual Current gender identity: female What is your relationship status?: never How often do you talk on the phone with friends or family?: twice per week How often do you get together with friends or relatives?: once per week How often do you attend confucianist or methodist services?: decline to answer Do you belong to any clubs or organized social groups?: no Panel score (0-1 are the most socially isolated patients): 1 What type of physical activity do you participate in: yoga Duration: 15-30 minutes/day Frequency: 3-4 times per week Mamie/Restorationism: No preference Seatbelt use: sometimes Helmet use: No Drive intox or ride w/intox utility driver: No Do you feel safe at home: Yes Do you feel safe in your relationship?: Yes Additional Social history: lives alone Female Reproductive History Menstrual Age of Menarche: 12 Duration of menses: other control method: progesterone injection History History 0 Para Hx # Term Pregnancies Multiple births Hx # Pregnancies Ectopic pregnancies AB induced Hx Number of Living Children AB spontaneous POCUS Exam (ED) Limited Cardiac Exam DATE OF EXAM: 02/12/25 TIME OF EXAM: 10:39 PROVIDER THAT PERFORMED THE STUDY: Adam Moore REASON FOR EXAM: Chest pain VISUALIZED STRUCTURES: Left atrium, Left ventricle, LVOT, Right atrium, Right ventricle, Aortic valve, Mitral valve and Interventricular septum VIEW OBTAINED: Parasternal long-axis and Parasternal short-axis PERTINENT FINDINGS/IMPRESSION: No apparent abnormalities; No LV dysfunction, No pericardial effusion and No RV dysfunction DIFFERENTIAL DIAGNOSES: Pericarditis, costochondriti Exam complete
[2025-02-12 11:15] VITALS: BP 114/92; PULSE 90; RESP 14; TEMP 36.6; O2SAT 100
== END 2025-02-12 11:17 | disposition home or self-care (01) ==
PROVIDERS: Emergency Provider General Practice; PCP Nurse Practitioner Family
DX: R07.9 Chest pain, unspecified (principal); M94.0 Chondrocostal junction syndrome [Tietze]
CPT/HCPCS: 99284; 99283; 93005; 93308; 93010

== ENCOUNTER 2025-02-19 15:21 | Outpatient (CLI) | payer SELFPAY | END 2025-02-19 15:22 | disposition home or self-care (01) | PROVIDERS: PCP Nurse Practitioner Family; Visit Provider Nurse Practitioner Family | DX: R55 Syncope and collapse (principal) | CPT/HCPCS: 93246 ==

== ENCOUNTER 2025-02-21 11:45 | Emergency (ER) | payer SELFPAY ==
[2025-02-21] VITALS (16 sets, daily range): BP systolic 116; BP diastolic 76–89; PULSE 63–103; RESP 14–18; TEMP 36.6; O2SAT 97–98
--- NOTE | 2025-02-21 11:45 | RT.EKG_ITS ---
APPROVED REPORT Exam: Resting ECG Reason for Exam: chest pain Patient Location: E HR:80 bpm ECG Measurements Heart Rate 80 AXIS MA 135 P 31 QRSd 73 QRS 49 QT 386 T 32 QTc 446 Conclusion Sinus rhythm...normal P axis, V-rate 60- 99 Low voltage, precordial leads...precordial leads <1.0mV I have reviewed and interpreted ECG and agree with software generated interpretation.
--- NOTE | 2025-02-21 12:15 | DI.CT_ITS ---
Exam(s) CT BRAIN NECK CTA EXAM: CT BRAIN NECK CTA CLINICAL HISTORY: dizziness, AGUIRRE. TECHNIQUE: Imaging Protocol: Axial CT angiography was performed with multi- slice acquisition and multi-planar and/or 3D reconstructions. CONTRAST MATERIAL: Intravenous: Omnipaque 350 Contrast volume:100 mL COMPARISON: Brain CT scan 04/10/2024 FINDINGS: CTA Neck W: Aortic arch anatomy: The aortic arch anatomy is conventional and there is no significant stenosis at the origin of the great vessels off of the aortic arch. No intimal flap evident. Anterior circulation: Both common carotid arteries ascend with normal luminal diameters. At the level the carotid bulbs and proximal internal carotid arteries there is no significant plaque and no hemodynamically significant stenosis evident. Posterior circulation: Both vertebral arteries originate in conventional fashion off of the subclavian arteries and there is no obvious stenosis at the origin of the vertebral arteries. Both vertebral arteries exhibit normal luminal diameters within the foramen transversarium. No evidence of stenosis nor thrombosis nor dissection. Both vertebral arteries contribute to the formation of the basilar artery at the skull base. CTA Brain W: Anterior circulation: Both internal carotid arteries are patent in the skull base-carotid canals as well as within the cavernous sinuses. The supraclinoid aspects of the ICAs are patent. Both A1 segments are patent as are the anterior cerebral arteries and there is no evidence of aneurysm at the level of the anterior communicating artery. Both middle cerebral arteries are patent with no evidence of significant stenosis nor intraluminal thrombus. There also no aneurysms of these vessels. Posterior circulation: The basilar artery ascends in the midline. Distally it gives off patent bilateral superior cerebellar arteries. Above this level the basilar artery terminates as patent bilateral posterior cerebral arteries. There is no evidence of aneurysm at the tip of the basilar artery nor elsewhere in the [id number]. CT BRAIN: There is no evidence of intracranial hemorrhage, mass effect, or shift of midline structures. There are no extra-axial fluid collections. Ventricles are not enlarged or shifted. There are no ring enhancing lesions in the brain and no abnormal meningeal enhancement. IMPRESSION: 1. Patent carotid arteries in the neck. No hemodynamically significant stenosis. No dissection 2. Patent vertebral arteries. 3. Patent intracranial arteries. No stenosis nor occlusion nor dissection. No vascular malformations 4. No ring enhancing lesions in the brain. No evidence of infarct or hemorrhage. Report called by myself to the ER provider 02/21/2025 at 2:12 p.m. RADIATION DOSE DELIVERED: 2,149.6mGy.cm Total DLP DATA REPOSITORY: All CT scans at this facility are submitted to the National Radiology Data Registry (NRDR) Dose Index Registry (DIR) with the [employer] (A[employer]). RADIATION OPTIMIZATION: All CT scans at this facility use at least one of these dose optimization techniques: automated exposure control; mA and/or kV adjustment per patient size (includes targeted exams where dose is matched to clinical indication); or iterative reconstruction.
[2025-02-21 12:35] LABS: Abs Immature Grans 0.02 10^3/uL (0.0-0.06); HCT 44.9 % (36.0-46.0); HGB 15.2 g/dL (11.2-15.7); Immature Grans % 0.2 %; MCH 27.7 pg (27.0-33.0); MCHC 33.9 % (32.0-36.0); MCV 82 fL (80-95); MPV 10.3 fL (8.0-11.0); Platelet Count 317 10^3/uL (130-400); RBC 5.48 10^6/uL (3.93-5.22); RDW 11.9 % (11.7-14.6); RDW-SD 35.1 fL; WBC 9.78 10^3/uL (4.4-10.8)
[2025-02-21] MEDS: Prochlorperazine 10 MG/2 ML VIAL 5 MG IVP (12:41)
[2025-02-21] MEDS: Meclizine 25 MG TAB PO (12:41)
[2025-02-21] MEDS: Normal Saline 1,000 ML 1000 ML IV (12:43)
[2025-02-21 13:07] LABS: ALT 68 U/L (14-59); AST 35 U/L (15-37); Albumin 4.0 g/dL (3.4-5.0); Alkaline Phosphatase 153 U/L (46-116); Anion Gap 11.2 mmol/L (3-11); BUN 9 mg/dL (7-18); Bilirubin, Total 0.6 mg/dL (0.2-1.0); CO2 23.8 mmol/L (21.0-32.0); Calcium 9.7 mg/dL (8.5-10.1); Chloride 104 mmol/L (98-107); Estimated GFR 119.99 (mL/min/1.73m2); Glucose 88 mg/dL (74-106); Magnesium 1.9 mg/dL (1.8-2.4); Potassium 3.8 mmol/L (3.5-5.1); Sodium 139 mmol/L (136-145); TSH (W/Ref FT4) 1.72 uIU/mL (0.36-3.74); Total Protein 7.9 g/dL (6.4-8.2)
[2025-02-21 13:18] LABS: Lab Add On Test DONE
[2025-02-21] MEDS: Normal Saline - Diluent 50 ML VIAL IJ (13:42)
[2025-02-21] MEDS: Normal Saline Flush 10 ML SYR IVP (13:42)
[2025-02-21] MEDS: Omnipaque 350 MG/ML 100 ML BTL IJ (13:43)
[2025-02-21 13:56] LABS: Troponin I < 4 ng/L (<or=51)
--- NOTE | 2025-02-25 17:41 | ED.GENADUL_ITS ---
Discharge Plan Disposition Patient Disposition: Home Condition: Stable Discharge Details Clinical Impression: Episodic lightheadedness, Chest pain, Heart palpitations Primary Care Provider: Jing Bishop ED Provider: Vero Rees Home Meds and New Rx's Prescriptions: New meclizine 25 mg tablet 25 mg PO BID PRNQty: 10 0RF prochlorperazine maleate [Compazine] 10 mg tablet 10 mg PO Q6H PRNQty: 10 0RF Continued albuterol sulfate 90 mcg/actuation HFA aerosol inhaler 2 inh inhalation Q6H PRN (Reason: shortness of breath or wheezing) Qty: 18 4RF omeprazole 20 mg capsule,delayed release(DR/EC) 20 mg PO DAILY Qty: 90 3RF ondansetron 4 mg tablet,disintegrating 4 mg PO Q6H PRN (Reason: nausea and vomiting) Qty: 30 0RF acetaminophen [Tylenol] 325 mg tablet 975 mg PO ONCE PRNQty: 60 0RF ibuprofen 600 mg tablet 600 mg PO Q6H PRNQty: 30 0RF Discharge Instructions Instructions: Chest Pain (DC) Additional Instructions: Take meclizine as needed for dizziness You may take Compazine as needed for headache Continue drinking eight 8 ounce glasses of water daily and return your Zio patch for further additional information Follow-up with your primary care physician and return your Zio patch as discussed for additional information Your liver enzyme was slightly elevated but unchanged from your prior, follow-up with your doctor please Referrals: Jing Bishop, MARIN [Primary Care Provider, Medicine] Discharge Data Discharge Date/Time-TO BE ENTERED AT DEPARTURE: 02/21/25 14:37 HPI General Date/Time Provider Initiated Documentation: 02/21/25 11:59 . HPI Narrative: This 29 yo female presents with AGUIRRE, lightheadedness, and chest pain for 1 day. she has experienced this symptoms intermittently for the past several weeks. she currently has a zio patch on per her pcp. has had evaluations at several different hospitals over the past few weeks without obvious pathology per pt. denies early cardiac family hx of personal use of tobacco. Denies history of h ypertension or hyperlipidemia. denies known exacerbating or alleviating factors. states she hasn't had imaging of her chest. denies risk factors or personal hx of coagulopathy. Related Data Home Medications ?Medication ?Instructions ?Recorded ?Confirmed albuterol sulfate 90 mcg/actuation 2 inh inhalation Q6 H PRN shortness 02/13/24 02/21/25 aerosol inhaler of breath or wheezing #18 gr ams ondansetron 4 mg disintegrating 4 mg PO Q6H PRN nausea and 12/10/24 02/21/25 tablet vomiting #30 tabs acetaminophen 325 mg tablet 975 mg (3 x 325 mg) PO ONC E PRN 02/12/25 02/21/25 (Tylenol) #60 tabs ibuprofen 600 mg tablet 600 mg PO Q6H PRN #30 tabs 0 02/12/25 02/21/25 omeprazole 20 mg capsule,delayed 20 mg PO DAILY #90 ca ps 02/15/25 02/21/25 release meclizine 25 mg tablet 25 mg PO BID PRN #10 tabs prochlorperazine maleate 10 mg 10 mg PO Q6H PRN #10 ta bs 02/21/25 tablet (Compazine) Previous Rx's ?Medication ?Instructions ?Recorded albuterol sulfate 90 mcg/actuation 2 inh inhalation Q6 H PRN shortness 02/13/24 aerosol inhaler of breath or wheezing #18 gr ams ondansetron 4 mg disintegrating 4 mg PO Q6H PRN nausea and 12/10/24 tablet vomiting #30 tabs acetaminophen 325 mg tablet 975 mg (3 x 325 mg) PO ONC E PRN 02/12/25 (Tylenol) #60 tabs ibuprofen 600 mg tablet 600 mg PO Q6H PRN #30 tabs 0 02/12/25 omeprazole 20 mg capsule,delayed 20 mg PO DAILY #90 ca ps 02/15/25 release meclizine 25 mg tablet 25 mg PO BID PRN #10 tabs prochlorperazine maleate 10 mg 10 mg PO Q6H PRN #10 ta bs 02/21/25 tablet (Compazine) Allergies Allergy/AdvReac Type Severity Reaction Status Date / Time naproxen AdvReac Nausea Verified 02/21/25 11:51 tramadol AdvReac Hallucinati Verified 02/21/25 11:51 ons General Stated Complaint: Dizzy/Sync SONDRA: 3 Exam Const General: cooperative and comfortable Orientation: alert and oriented x3 Eyes Pupils: PERRL EOM: EOM intact bilaterally Chest Chest: normal inspection of the chest and localized rib tenderness with anteroposterior compression Resp Effort & Inspection: normal respiratory effort and able to speak in complete sentences Cardio Rate: regular rate Rhythm: regular rhythm GI Inspection: normal to inspection Neuro General: patient alert and patient oriented x3 Cranial Nerves: CN's II-XI intact bilaterally and tongue midline Cognition: normal cognition Speech: speech normal Gait: normal gait Motor: strength 5/5 throughout and no pronator drift Sensory Exam: no sensory deficits noted Extrem General: normal to inspection Course Vital Signs Vital signs: Vital Signs Temperature 36.6 C 02/21/25 11:50 Pulse 79 02/21/25 11:50 Respiratory Rate 18 02/21/25 11:50 Blood Pressure 116/76 02/21/25 11:50 Pulse Oximetry 97 02/21/25 11:50 Temperature 36.6 C 02/21/25 11:50 Pulse 100 H 02/21/25 14:18 Pulse 101 H 02/21/25 14:31 Respiratory Rate 18 02/21/25 14:18 Respiratory Effort Normal 02/21/25 14:18 Respiratory Depth Normal 02/21/25 14:18 Respiratory Pattern Normal 02/21/25 14:18 Blood Pressure 116/89 02/21/25 14:18 Blood Pressure Mean 98 02/21/25 14:18 Blood Pressure Position Sitting 02/21/25 14:18 Pulse Oximetry 98 02/21/25 14:18 Oxygen Delivery Method Room Air 02/21/25 14:18 Oxygen Flow Rate 0 02/21/25 14:18 Pain Level 1 02/21/25 14:18 Lab/Test Results Lab/Test Results: Laboratory Tests Range/Units 02/21/25 02/21/25 02/21/25 12:20 12:22 13:13 WBC (4.4-10.8) 10^3/uL 9.78 RBC (3.93-5.22) 10^6/uL 5.48 H Hgb (11.2-15.7) g/dL 15.2 Hct (36.0-46.0) % 44.9 MCV (80-95) fL 82 MCH (27.0-33.0) pg 27.7 MCHC (32.0-36.0) % 33.9 RDW (11.7-14.6) % 11.9 Plt Count (130-400) 10^3/uL 317 MPV (8.0-11.0) fL 10.3 Immature Gran % % 0.2 Neutrophils % % 67.8 Lymphocytes % % 25.4 Monocytes % % 4.5 Eosinophils % % 1.5 Basophils % % 0.6 Nucleated RBC % (0.0-0.3) % 0.0 Absolute Neutrophils (1.2-6.7) 10^3/uL 6.63 Absolute Lymphocytes (1.2-3.4) 10^3/uL 2.48 Absolute Monocytes (0.1-0.8) 10^3/uL 0.44 Absolute Eosinophils (0.0-0.7) 10^3/uL 0.15 Absolute Basophils (0.0-0.2) 10^3/uL 0.06 Sodium (136-145) mmol/L 139 Potassium (3.5-5.1) mmol/L 3.8 Chloride (98-107) mmol/L 104 Carbon Dioxide (21.0-32.0) mmol/L 23.8 Anion Gap (3-11) mmol/L 11.2 H BUN (7-18) mg/dL 9 Creatinine (0.55-1.02) mg/dL 0.7 Est GFR (CKD-EPI 2020) (mL/min/1.73m2) 119.99 Glucose (74-106) mg/dL 88 Calcium (8.5-10.1) mg/dL 9.7 Magnesium (1.8-2.4) mg/dL 1.9 Total Bilirubin (0.2-1.0) mg/dL 0.6 AST (15-37) U/L 35 ALT (14-59) U/L 68 H Alkaline Phosphatase (46-116) U/L 153 H Troponin I (<or=51) ng/L < 4 Total Protein (6.4-8.2) g/dL 7.9 Albumin (3.4-5.0) g/dL 4.0 TSH (0.36-3.74) uIU/mL 1.72 Add-On Test Request DONE POC- Test(urine) Negative Medical Decision Making Results: CTA head and neck cardiology interpretation my review does not show acute abnormality, diagnostic labs CBC chemistry all within normal limits including thyroid Assessment and plan: Patient will continue to wear her Zio patch for her palpitations and chest pain for further evaluation which she will follow-up with her primary care physician regarding CTA head and neck are reassuring. She was given Compazine and meclizine and states her symptoms have dramatically improved. She is ambulatory with steady gait without headache and no dizziness. I will give her prescription for meclizine and Compazine for home. Her troponins were negative and I have low clinical suspicion for pulmonary embolism based on exam and diagnostics. Patient was given a threshold to return with new or worsening complaints and return earlier should she have any concerning symptoms arise. PFSH All Active Problems (Updated 02/21/25 @ 20:34 by Jazlyn Simpson MD) GERD with esophagitis (Acute) Heart palpitations (Acute) Chest pain (Acute) Episodic lightheadedness (Acute) Costochondritis (Acute) Atypical chest pain (Acute) Chest pain (Acute) Metabolic dysfunction-associated steatotic liver disease (MASLD) (Chronic) Multiple food allergies (Acute) Endometriosis (Chronic) Abnormal uterine bleeding (Chronic) on depo for cycle control Asthma (Chronic) GERD (gastroesophageal reflux disease) (Chronic) Obesity (Chronic) Nausea and vomiting (Chronic) Vaginismus (Chronic) Significant pain with speculum exams. On Depo-Provera for contraception (Chronic) 07/27/24. New job makes commuting for Depo problematic. Pt will have LNG IUD inserted Chronic low back pain (Chronic) Chronic joint pain (Chronic) Plantar fasciitis of left foot (Acute) Medical History Elevated rheumatoid factor [facility] Rheumatology consulted 12/2023, no rheumatoid arthritis Right ureteral calculus Depression Migraine Surgical History Hx of cholecystectomy H/O laparoscopy Family History Mother Substance use disorder Father No problems noted. Brother No problems noted. Brother No problems noted. Maternal Grandfather Heart disease Maternal Grandmother Heart disease Paternal Grandfather No problems noted. Paternal Grandmother No problems noted. Social History Smoking/Tobacco Use Status: Never Second Hand Exposure: Yes Smoking risk assessment performed?: Yes Alcohol Intake: current Alcohol Intake frequency: holidays/special occasions only Alcohol type: wine and hard liquor Drug use: Daily Substance use type: marijuana Details: THC gummies to sleep Caregiver/Support person: No Household members: none Housing: apartment Communication Needs: None Do you need help understanding health information?: Never Pets and animals: Yes Pets and animals: dog(s) Sexually active: No Do you think of yourself as: straight/heterosexual Current gender identity: female What is your relationship status?: never How often do you talk on the phone with friends or family?: twice per week How often do you get together with friends or relatives?: once per week How often do you attend restoration or restorationist services?: decline to answer Do you belong to any clubs or organized social groups?: no Panel score (0-1 are the most socially isolated patients): 1 What type of physical activity do you participate in: yoga Duration: 15-30 minutes/day Frequency: 3-4 times per week Mamie/Scientology: No preference Seatbelt use: sometimes Helmet use: No 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
== END 2025-02-21 14:37 | disposition home or self-care (01) ==
PROVIDERS: Emergency Provider Physician Assistant; PCP Nurse Practitioner Family
DX: R07.9 Chest pain, unspecified (principal); R00.2 Palpitations; R42 Dizziness and giddiness
CPT/HCPCS: 36415; 70496; 70498; 80053; 81025; 93005; 96361; 96374; 99285; 83735; 84443; 84484; 85025; 93010; 99284; J0780; J3490

== ENCOUNTER 2025-02-28 02:03 | Outpatient (CLI) | payer SELFPAY ==
--- NOTE | 2025-02-28 06:15 | DI.NM_ITS ---
APPROVED REPORT Exam: Exercise Treadmill Patient Location: Out-Patient Room/Bed: Stress Nurse: Eliane Murry RN Ordering Provider:LAVON ROBLEROChencho, Contact Number: [phone] BMI: 41.59 Baseline Rhythm: Sinus Rhythm Indications: Atypical chest pain, syncope Medical History Medical History: GERD, heart palpitations, MASLD, asthma, depression, elevated rheumatic factor, migraine Cardiac Medications: Albuterol sulfate, meclizine, omeprazole, ondansetron, compazine Allergies: Naproxen, tramadol Cardiac Risk Factors: Family hx, asthma, obesity Previous Cardiac Procedures: None Pretest Chest Pain Characteristics: 09/13 chest pressure Exercise History: Indeterminate Physical Disabilities: None Lung Sounds: Clear to auscultation Heart Sounds: Regular Stress Test Details Test: Exercise stress testing was performed using a Isac protocol. Nuclear Acquisition: Rest Tc-99m/Stress Tc-99m 1 day Rest Isotope: Tc-99m Sestamibi. Dose: 10.2 Date: 02/28/2025 Injection Time: 0910 Stress Isotope: Tc-99m Sestamibi. Dose: 29.0 Date: 02/28/2025 Injection Time: 1045 HR Resting HR Supine: 76 bpm Max Heart Rate (APMHR): 191 bpm Resting HR Standin bpm Target HR (85% APMHR): 162 bpm Max HR Achieved: 179 bpm % of APMHR: 94 Recovery HR: 103 bpm HR response to stress: Normal HR response to stress BP Resting BP Supine: 108/80 mmHg Resting BP Standin/68 mmHg Max BP: 168/82 mmHg Recovery BP: 124/62 mmHg BP response to stress: Normal blood pressure response to stress. ECG Resting ECG: Sinus Rhythm Stress ECG: Sinus Tachycardia ST Change: No significant ST segment changes noted Recovery ECG: Sinus Tachycardia Recovery ST Change: No significant ST segment changes noted Clinical Reason for Termination: Fatigue Stress Symptoms: General Fatigue, mild dizziness Exercise duration: 06 min45 sec Highest Stage Reached: Stage 3: 3.4 mph at 14% grade. Exercise capacity: 8.2 METs Angina Score: Non-Limiting Rate Pressure Product: 92805 Stress ECG Conclusion 1. Resting electrocardiogram showed low voltage but was otherwise normal 2. Patient exercised on the Isac protocol and completed workload of 8 METS 3. Normal heart rate and blood pressure response to exercise. Patient achieved 94% of maximal predicted heart rate for age 4. There was no electrocardiographic evidence of myocardial ischemia 5. There were no dysrhythmias 6. See MPI report MPI Conclusion Myocardial perfusion is normal. There is no ischemia or evidence of prior infarction Ejection fraction is 63% with normal wall motion
== END 2025-02-28 02:23 ==
PROVIDERS: PCP Nurse Practitioner Family; Visit Provider Internal Medicine Cardiovascular Disease
DX: R07.89 Other chest pain (principal)
CPT/HCPCS: 78452; 93017

== ENCOUNTER 2025-03-19 06:56 | Outpatient (CLI) | payer SELFPAY ==
--- NOTE | 2025-03-19 09:25 | W.CARDEVENT ---
Date of service: 03/19/25 Time of Service: 09:25 Cardiac Event Recorder Referring Provider:: Jing Bishop Indications:: Palpitations Cardiac Event Note: This is a cardiac event monitor. Patient was monitored for 13 days Rhythm throughout was sinus with an average heart rate of 86. Minimum was 49, maximum 176 There were very very rare isolated atrial and ventricular ectopic beats. There was no atrial fibrillation, no SVT, no high-grade AV block, no pauses greater than 3 seconds No symptoms were reported
== END 2025-03-19 06:57 | disposition home or self-care (01) ==
LOC: CARDOPNVT 06:56
PROVIDERS: PCP Nurse Practitioner Family; Visit Provider Internal Medicine Cardiovascular Disease
DX: R00.2 Palpitations (principal)
CPT/HCPCS: 93248